=== PATIENT | female | born 1940 | race Caucasian/White ===

== ENCOUNTER → 2016-08-20 | Outpatient (CLI) | payer MEDICARE, OTHER ==
[~2016-08-20] MED LIST: ASP325T PO; ASPI-999 PO; CEPH500C PO; CPR500T PO; CRESTOR40 MG PO; CYAN10006 PO; DOCU100C37 PO; FLUO20CA42 PO; FLUO40CA PO; HYDR-34 PO; HYDR-3816 PO; HYDROCODONE; IBUP-1773 PO; MAGN400O7 PO; METO-272 PO; METO25TA PO; METR500T PO; MULT-305 PO; OMEP20TA2 PO; POLY17PO23 PO; SENN1TAB76 PO; SIME80TA16 PO; TELM1TAB27 PO; TELM40T PO
--- OUTSIDE RECORDS SUMMARY | 2016-08-20 15:29 | XMS REPORT | Continuity of Care Document ---
Author Author [facility] Organization [facility] Address Unknown Phone Unavailable Care Team Providers Care Assistant Store Leader Name Role Phone GREER CASTRO MD PCP Insurance Providers Payer Name Policy Number Subscriber Name Relationship [employer] [id number] Nicolasa Rowe 18 Self / Same As Patient Comm Crossover Enter Ins Name [id number] Nicolasa Rowe 18 Self / Same As Patient Advance Directives Directive Response Recorded Date/Time Advance Directives No 06/11/16 6:40am Health Care Power of Convict Guard No 06/11/16 6:40am Organ Donor Yes 06/11/16 6:40am Resuscitation Status Full Code 06/11/16 6:40am Problems No problem information available. Medications Current Home Medications Medication Dose Units Route Directions Days/Qty Instructions Start Date Omeprazole 20 Mg 20 Mg Oral Daily as needed for Heartburn 04/03/12 Fluoxetine Hcl 20 Mg 20 Mg Oral Daily 07/21/12 Aspirin 81 Mg 81 Mg Oral Daily 01/30/16 Multivit With Calcium,Iron,Min 1 Each 1 Each Oral Daily 01/30/16 Telmisartan 40 Mg 40 Mg Oral Daily 06/08/16 Cyanocobalamin (Vitamin B-12) 1,000 Mcg 1,000 Mcg Oral Daily Past Home Medications Medication Directions Ordered Status Telmisartan 40 Mg Tab, 80 Mg Oral Bedtime 04/03/12 Discontinued Rosuvastatin Calcium 40 Mg Tablet, 40 Mg Oral Daily 04/03/12 Discontinued Fluoxetine Hcl (Prozac) 40 Mg Capsule, 40 Mg Oral Daily 04/03/12 Discontinued Aspirin 325 Mg Tab, 325 Mg Oral Daily 04/03/12 Discontinued Metoprolol Succinate 25 Mg Tab.sr.24h, 25 Mg Oral As Directed 04/07/12 Discontinued Ciprofloxacin 500 Mg Tablet, 500 Mg Oral Twice A Day 04/07/12 Discontinued Metronidazole (Flagyl) 500 Mg Tablet, 500 Mg Oral Three Times A Day 04/07/12 Discontinued Cephalexin Monohydrate (Keflex) 500 Mg Capsule, 1 Each Oral Three Times A Day 07/21/12 Discontinued Acetaminophen/Hydrocodone Bitart 1 Ea Tablet, 1 - 2 Ea Oral Q4hr Prn Discontinued Polyethylene Glycol 17 Gm Pack, 17 Gm Oral Bedtime 07/26/12 Discontinued Metoprolol Succinate (Toprol Xl) 50 Mg Tab.sr.24h, 50 Mg Oral Twice A Day 26/07 Discontinued Senna 1 Ea Tablet, 2 Ea Oral Twice A Day 07/26/12 Discontinued Telmisartan/Hydrochlorothiazid 1 Each Tablet, 0.5 Each Oral Daily 01/30/16 Discontinued Ibuprofen 600 Mg Tablet, 600 Mg Oral Every 6 Hours as needed for Pain Discontinued Hydrocodone/Acetaminophen 1 Each Tablet, 1-2 Ea Oral Every 6 Hours as needed for Pain 02/05/16 Discontinued Simethicone 80 Mg Tab.chew, 40 Mg Oral Three Times A Day as needed for Indigestion 02/05/16 Discontinued Docusate Sodium 100 Mg Capsule, 100 Mg Oral Twice A Day as needed for Constipation 02/05/16 Discontinued Magnesium Hydroxide 400 Mg/5 Ml Oral.susp, 400 Mg Oral Daily 02/05/16 Discontinued Social History Social History Problem Response Recorded Date/Time Alcohol Use Denies Use 02/05/2016 6:25am Recreational Drug Use No 02/05/2016 6:25am Recent Foreign Travel No 06/11/2016 6:40am Recent Infectious Disease Exposure No 06/11/2016 6:40am Sexually Transmitted Disease No 06/11/2016 6:40am HIV/AIDS No 06/11/2016 6:40am Smoking Status Never a Smoker 06/11/2016 6:40am Recent Hopitalizations No 06/11/2016 6:40am Sexually Transmitted Disease No 06/11/2016 6:40am Query Response Start Date Stop Date Smoking Status Never a Smoker Hospital Discharge Instructions Patient Instructions Physician Instructions New, Converted or Re-Newed RX: Other Plan of Care/Instructions/FU: To use tyleneol or ibuprofen for pain. F/U with my nurse in 10 days for suture removal Activity as Tolerated: Yes Discharge Diet: No Restrictions Care Plan Patient Instructions:: To use tyleneol or ibuprofen for pain. F/U with my nurse in 10 days forsuture removal Plan of Care Discharge Date 06/11/16 10:12am Instructions/Education Provided ANESTHESIA INSTRUCTIONS POSTOP Surgical Wound (DC) Prescriptions See Medication Section Functional Status No functional status results. Allergies, Adverse Reactions, Alerts Allergen Type Severity Reaction Status Last Updated Sulfa (Sulfonamide Antibiotics) ([id number]) Allergy Unknown Active 03/16 Immunizations No immunization records. Vital Signs Acute Vital Signs Vital Response Date/Time Temperature (Fahrenheit) 98.3 degrees F (97.6 - 99.5) 06/11/2016 9:45am Temperature (Calculated Celsius) 36.41066 degrees C (36.4 - 37.5) 06/11/2016 9:45am Temperature Source Temporal 06/11/2016 9:45am Pulse Rate (adult) 70 bpm (60 - 90) 06/11/2016 9:45am Respiratory Rate 16 bpm (12 - 24) 06/11/2016 9:45am O2 Sat by Pulse Oximetry 95 % (88 - 100) 06/11/2016 9:45am Blood Pressure 122/75 mm Hg 06/11/2016 9:45am Blood Pressure Mean 121 mm Hg 06/11/2016 6:40am Pain Numeric Pain Scale 0-No Pain 06/11/2016 6:40am Pain Intensity 0 06/11/2016 9:45am Height (Feet) 5 feet 06/11/2016 6:40am Height (Inches) 0.00 inches 06/11/2016 6:40am Height (Calculated Centimeters) 152.554407 cm 06/11/2016 6:40am Weight (Pounds) 124 pounds 06/11/2016 6:40am Weight (Ounces) 3.0 oz 06/11/2016 6:40am Weight (Calculated Grams) 47270.50 gm 06/11/2016 6:40am Weight (Calculated Kilograms) 56.663526 kilograms 06/11/2016 6:40am Calculated BMI 24.3 06/11/2016 6:40am Results Pending Microbiology Results Procedure Source Collection Date/Time Procedures Procedure Status Date Provider(s) Excision of lesion Completed 06/11/16 MICHELLE REESE MD Encounters Encounter Location Arrival/Admit Date Discharge/Depart Date Attending Provider Departed [facility] 06/11/16 6:03am 10:12am MICHELLE REESE MD Departed Clinic [facility] 06/08/16 1:01pm 06/08/16 2: 01pm MICHELLE REESE MD
--- NOTE | 2016-08-23 20:01 | Diagnostic Imaging Report ---
Digital mammogram bilateral screening INDICATION: Screening. This study was compared to the prior exams of 06/09/2015, 05/29/2014, and 05/09/13. At this time, there are no current complaints, aside from intermittent pain in the left breast. FINDINGS: The fibroglandular tissue in both breasts is heterogeneously dense. This does limit the sensitivity of this exam. As noted on the prior exam, there are number of calcifications scattered throughout the upper-outer aspect of the right breast. The calcifications do not seem to have changed significantly except for one small group in the upper-outer aspect of the breast, roughly 6 cm from the nipple. These calcifications are somewhat more conspicuous and numerous than on the prior study. I would recommend that a compression/magnification view of this area be obtained in the CC and ML projections so that these calcifications can be better characterized. The overall appearance of the breasts has not changed significantly otherwise. There is no primary or secondary sign of malignancy noted. IMPRESSION: Additional mammographic views of the right breast would be recommended for further study. ACR BI-RADS Category 0: Incomplete. (Needs additional imaging evaluation). Result letter will be mailed to the patient. Note: At least 10% of breast cancer is not imaged by mammography. Dictated by: Dictated on workstation # [id number]
== END ==
LOC: RAD 15:25
PROVIDERS: ATTEND Nurse Practitioner Family
DX: Z12.31 Encounter for screening mammogram for malignant neoplasm of breast (principal)

== ENCOUNTER → 2016-09-07 | Outpatient (CLI) | payer MEDICARE, OTHER ==
--- OUTSIDE RECORDS SUMMARY | 2016-09-07 08:27 | XMS REPORT | Continuity of Care Document ---
Author Author [facility] Organization [facility] Address Unknown Phone Unavailable Care Team Providers Care Turner Splitter Machine Operator Name Role Phone GREER CASTRO MD PCP Insurance Providers Payer Name Policy Number Subscriber Name Relationship [employer] [id number] Nicolasa Rowe 18 Self / Same As Patient Comm Crossover Enter Ins Name [id number] Nicolasa Rowe 18 Self / Same As Patient Advance Directives Directive Response Recorded Date/Time Advance Directives No 06/11/16 6:40am Health Care Power of Rn Utilization Management Um No 06/11/16 6:40am Organ Donor Yes 06/11/16 [...] Reaction Status Last Updated Sulfa (Sulfonamide Antibiotics) ([id number]) Allergy Unknown Active 03/16 Immunizations No immunization records. Vital Signs Acute Vital Signs Vital Response Date/Time Temperature (Fahrenheit) 98.3 degrees F (97.6 - 99.5) 06/11/2016 9:45am Temperature (Calculated Celsius) 36.16448 degrees C (36.4 - 37.5) 06/11/2016 9:45am [...] 0.00 inches 06/11/2016 6:40am Height (Calculated Centimeters) 152.104611 cm 06/11/2016 6:40am Weight (Pounds) 124 pounds 06/11/2016 6:40am Weight (Ounces) 3.0 oz 06/11/2016 6:40am Weight (Calculated Grams) 17343.50 gm 06/11/2016 6:40am Weight (Calculated Kilograms) 56.497805 kilograms 06/11/2016 6:40am Calculated BMI 24.3 06/11/2016 6:40am Results Pending Microbiology Results Procedure Source Collection Date/Time Procedures Procedure Status Date Provider(s) Excision of lesion Completed 06/11/16 MICHELLE REESE MD Encounters Encounter Location Arrival/Admit Date Discharge/Depart Date Attending Provider Departed [facility] Day [facility] 06/11/16 6:03am 10:12am MICHELLE REESE MD Departed Clinic [facility] 06/08/16 1:01pm 06/08/16 2: 01pm MICHELLE REESE MD
--- NOTE | 2016-09-07 15:35 | Diagnostic Imaging Report ---
EXAMINATION: Right breast diagnostic mammogram with a Computer Aided Detection (CAD) system. INDICATION: Increased calcifications in the upper outer aspect of the right breast. FINDINGS: There are loosely clustered calcifications with minimal heterogeneity seen in the upper outer aspect of the right breast. No associated mass is identified. IMPRESSION: Slightly increased calcifications with minimal heterogeneity and loose clustering in the upper outer aspect of the right breast are favored to be benign. A 6 month followup mammogram is recommended to ensure stability. ACR BI-RADS Category 3: Probably benign findings. Result letter will be mailed to the patient. Note: At least 10% of breast cancer is not imaged by mammography. Dictated by: Dictated on workstation # [id number]
== END ==
LOC: RAD 08:22
PROVIDERS: ATTEND Nurse Practitioner Family
DX: R92.8 Other abnormal and inconclusive findings on diagnostic imaging of breast (principal)

== ENCOUNTER → 2016-09-29 | Outpatient (CLI) | payer MEDICARE, OTHER ==
--- OUTSIDE RECORDS SUMMARY | 2016-09-29 15:12 | XMS REPORT | Continuity of Care Document ---
Author Author [facility] Organization [facility] Address Unknown Phone Unavailable Care Team Providers Care Black Ash Burner Operator Name Role Phone GREER CASTRO MD PCP Insurance Providers Payer Name Policy Number Subscriber Name Relationship [employer] [id number] Nicolasa Rowe 18 Self / Same As Patient Comm Crossover Enter Ins Name [id number] Nicolasa Rowe 17 Self / Same As Patient Advance Directives Directive Response Recorded Date/Time Advance Directives No 06/11/16 6:40am Health Care Power of Button Breaker Operator No 06/11/16 6:40am Organ Donor Yes 06/11/16 [...] Reaction Status Last Updated Sulfa (Sulfonamide Antibiotics) ([id number]) Allergy Unknown Active 03/16 Immunizations No immunization records. Vital Signs Acute Vital Signs Vital Response Date/Time Temperature (Fahrenheit) 98.3 degrees F (97.6 - 99.5) 06/11/2016 9:45am Temperature (Calculated Celsius) 36.70645 degrees C (36.4 - 37.5) 06/11/2016 9:45am [...] 0.00 inches 06/11/2016 6:40am Height (Calculated Centimeters) 152.339171 cm 06/11/2016 6:40am Weight (Pounds) 124 pounds 06/11/2016 6:40am Weight (Ounces) 3.0 oz 06/11/2016 6:40am Weight (Calculated Grams) 39835.50 gm 06/11/2016 6:40am Weight (Calculated Kilograms) 56.223124 kilograms 06/11/2016 6:40am Calculated BMI 24.3 06/11/2016 6:40am Results Pending Microbiology Results Procedure Source Collection Date/Time Procedures Procedure Status Date Provider(s) Excision of lesion Completed 06/11/16 MICHELLE REESE MD Encounters Encounter Location Arrival/Admit Date Discharge/Depart Date Attending Provider Departed [facility] Day [facility] 06/11/16 6:03am 10:12am MICHELLE REESE MD Departed Clinic [facility] 06/08/16 1:01pm 06/08/16 2: 01pm MICHELLE REESE MD
--- NOTE | 2016-09-29 19:34 | Diagnostic Imaging Report ---
Three views of the thoracic spine. INDICATION: Back pain. FINDINGS: There is satisfactory alignment of the thoracic spine. The vertebral body heights are preserved. There is minimal right convexity scoliosis to the right in the mid thoracic spine. There are minimal anterior osteophytes in the midthoracic spine. The swimmer's view demonstrates satisfactory alignment of the thoracocervical junction levels. IMPRESSION: Minimal scoliotic curvatures in the mid thoracic spine. Minimal degenerative changes. Dictated by: Dictated on workstation # [id number]
--- NOTE | 2016-09-29 19:42 | Diagnostic Imaging Report ---
Three views of the lumbar spine. INDICATION: Back pain. FINDINGS: There is grade 2 spondylolisthesis of L4 over L5. There is suggestion of possible pars defects at L4 level. There is minimal anterolisthesis of L3 over L4. The vertebral body heights are preserved. There is mild disc height loss at L4/L5 level. Multilevel minimal anterior osteophytes noted. Degenerative sclerotic changes in the lower lumbar spine facet joints and mild degenerative changes at the SI joints seen. IMPRESSION: Grade 2 spondylolisthesis of L4 over L5 level with question of underlying L4 pars defects. Dictated by: Dictated on workstation # [id number]
== END ==
LOC: RAD 15:08
PROVIDERS: ATTEND Pain Medicine Pain Medicine
DX: M54.5 Low back pain (principal); M54.6 Pain in thoracic spine
CPT/HCPCS: 72072; 72100

== ENCOUNTER 2016-10-01 09:07 | Inpatient (IN) | payer MEDICARE, OTHER ==
[~2016-10-01] VITALS: Ht 154.9 cm; Wt 57.2 kg
[~2016-10-01 09:07] MED LIST changes: -HYDROCODONE
--- OUTSIDE RECORDS SUMMARY | 2016-10-01 09:15 | XMS REPORT | Continuity of Care Document ---
Author Author [facility] Organization [facility] Address Unknown Phone Unavailable Care Team Providers Care Rn First Assistant Name Role Phone GREER CASTRO MD PCP Insurance Providers Payer Name Policy Number Subscriber Name Relationship W[employer] [id number] Nicolasa Rowe 18 Self / Same As Patient Comm Crossover Enter Ins Name [id number] Nicolasa Rowe 17 Self / Same As Patient Advance Directives Directive Response Recorded Date/Time Advance Directives No 06/11/16 6:40am Health Care Power of Street Light Lamp Cleaner No 06/11/16 6:40am Organ Donor Yes 06/11/16 [...] Reaction Status Last Updated Sulfa (Sulfonamide Antibiotics) ([id number]) Allergy Unknown Active 03/16 Immunizations No immunization records. Vital Signs Acute Vital Signs Vital Response Date/Time Temperature (Fahrenheit) 98.3 degrees F (97.6 - 99.5) 06/11/2016 9:45am Temperature (Calculated Celsius) 36.39454 degrees C (36.4 - 37.5) 06/11/2016 9:45am [...] 0.00 inches 06/11/2016 6:40am Height (Calculated Centimeters) 152.252639 cm 06/11/2016 6:40am Weight (Pounds) 124 pounds 06/11/2016 6:40am Weight (Ounces) 3.0 oz 06/11/2016 6:40am Weight (Calculated Grams) 21561.50 gm 06/11/2016 6:40am Weight (Calculated Kilograms) 56.732942 kilograms 06/11/2016 6:40am Calculated BMI 24.3 06/11/2016 6:40am Results Pending Microbiology Results Procedure Source Collection Date/Time Procedures Procedure Status Date Provider(s) Excision of lesion Completed 06/11/16 MICHELLE REESE MD Encounters Encounter Location Arrival/Admit Date Discharge/Depart Date Attending Provider Departed [facility] Day [facility] 06/11/16 6:03am 10:12am MICHELLE REESE MD Departed Clinic [facility] 06/08/16 1:01pm 06/08/16 2: 01pm MICHELLE REESE MD
[2016-10-01] MEDS ORDERED: HYDROCODONE (09:38)
[2016-10-01 10:12] LABS: BASOPHILS % (AUTO) 0 % (0-10); EOSINOPHILS # (AUTO) 0.1 10^3/uL (0.0-0.3); EOSINOPHILS % (AUTO) 1 % (0-10); LYMPHOCYTES # (AUTO) 1.7 X 10^3 (1.0-4.0); LYMPHOCYTES % (AUTO) 23 % (12-44); MEAN CORPUSCULAR HEMOGLOBIN 34 PG (25-34); MEAN CORPUSCULAR HGB CONC 34 G/DL (32-36); MEAN CORPUSCULAR VOLUME 99 FL (80-99); MEAN PLATELET VOLUME 9.6 FL (7.4-10.4); MONOCYTES # (AUTO) 0.8 X 10^3 (0.0-1.0); MONOCYTES % (AUTO) 11 % (0-12); NEUTROPHILS # (AUTO) 4.7 X 10^3 (1.8-7.8); NEUTROPHILS % (AUTO) 65 % (42-75); PLATELET COUNT 229 10^3/uL (130-400); RED BLOOD COUNT 4.08 10^6/uL (4.35-5.85); RED CELL DISTRIBUTION WIDTH 12.4 % (10.0-14.5); WHITE BLOOD COUNT 7.2 10^3/uL (4.3-11.0)
[2016-10-01 10:17] LABS: PROTHROMBIN TIME PATIENT 13.3 SEC (12.2-14.7)
[2016-10-01 10:24] LABS: ANION GAP 12 MMOL/L (5-14); BILIRUBIN,TOTAL 0.7 MG/DL (0.1-1.0); BLOOD UREA NITROGEN 18 MG/DL (7-18); BUN/CREATININE RATIO 21; CARBON DIOXIDE 22 MMOL/L (21-32); CHLORIDE 103 MMOL/L (98-107); CREATININE SERUM 0.85 MG/DL (0.60-1.30); GFR ESTIMATED > 60; GLUCOSE 120 MG/DL (70-105); POTASSIUM 3.6 MMOL/L (3.6-5.0); SODIUM 137 MMOL/L (135-145)
[2016-10-01 10:25] LABS: ALANINE AMINOTRANSFERASE 12 U/L (0-55); ALBUMIN 3.7 G/DL (3.2-4.5); ASPARTATE AMINO TRANSFERASE 17 U/L (5-34); TOTAL PROTEIN 6.3 G/DL (6.4-8.2)
[2016-10-01 10:30] LABS: TROPONIN I < 0.30 NG/ML (<0.30)
--- NOTE | 2016-10-01 10:30 | Diagnostic Imaging Report ---
INDICATION: Syncope. Noncontrast brain CT is performed. There are no extra-axial fluid collections. No intracranial hemorrhage. No intracranial mass or mass effect. No midline shift. The ventricles are normal in size and position. There are no focal parenchymal abnormalities in the brain. IMPRESSION: Negative noncontrast brain CT. Dictated by: Dictated on workstation # [id number]
[2016-10-01] MEDS ORDERED: NS IV 1000 ML 1,000 ML ONE (10:33)
--- NOTE | 2016-10-01 10:40 | Diagnostic Imaging Report ---
INDICATION: Syncope EXAM: Frontal chest obtained at 10:24 hrs a.m. COMPARISON: 12/13/2013. FINDINGS: The heart is mildly prominent. There are chronic-appearing increased interstitial markings. There is no acute consolidation, pneumothorax or pleural fluid. IMPRESSION: Mild cardiomegaly no acute process in the chest. Dictated by: Dictated on workstation # [id number]
[2016-10-01] MEDS: NS IV 1000 ML 1,000 ML IV SCH ×5 (10:41→18:14)
[2016-10-01] MEDS ORDERED: IOHEXOL 350 MG/ML 150 ML (OMNIPAQUE 350) VIAL IV ONE (11:15)
[2016-10-01] MEDS ORDERED: NS 100 ML (IVPB) BAG IV ONE (11:15)
[2016-10-01] MEDS ORDERED: CATHETER FLUSH 10 ML SYR IV PRN ×2 (11:15→19:00)
--- NOTE | 2016-10-01 12:00 | Diagnostic Imaging Report ---
PROCEDURE: CT angiography of the chest with contrast. TECHNIQUE: Multiple contiguous axial images were obtained through the chest after uneventful bolus administration of intravenous contrast. Reconstructed CTA MIP acquisitions were also performed. INDICATION: Positive D-dimer. History of breast cancer. 125 mL of Omnipaque 350 administered intravenously. FINDINGS: The pulmonary arteries are well opacified with no filling defects to suggest pulmonary embolism seen. The thoracic aorta is normal in caliber. No para-aortic significantly enlarged lymph nodes are seen. The heart size is normal. No pericardial or pleural effusion. The thyroid gland is enlarged and extends into the upper mediastinum. There is otherwise no mediastinal mass or significant lymphadenopathy. No hilar lymphadenopathy. The axilla demonstrates no lymphadenopathy or mass. Focal chronic atelectasis or scarring similar to 2012 is seen in the medial aspect of the right middle lobe without significant change. There is otherwise no significant consolidation, mass, or suspicious pulmonary nodule identified. Sections in the upper abdomen demonstrate mild thickening in the distal esophagus, may relate to esophagitis. The osseous structures demonstrate mild degenerative changes in the mid thoracic spine. IMPRESSION: 1. No PE or aortic dissection. 2. Chronic focal atelectasis and scarring in the medial aspect of the right middle lobe with no significant lung abnormality otherwise. 3. Mild thickening in the distal esophagus may relate to esophagitis. Correlate clinically and with endoscopy if indicated. Dictated by: Dictated on workstation # [id number]
[2016-10-01 13:36] LABS: BILIRUBIN,URINE NEGATIVE (NEGATIVE); KETONES,URINE NEGATIVE (NEGATIVE); LEUKOCYTE ESTERASE ,URINE 3+ (NEGATIVE); NITRITE,URINE NEGATIVE (NEGATIVE); PH,URINE 6 (5-9); PROTEIN,URINE 2+ (NEGATIVE); UROBILINOGEN,URINE NORMAL (NORMAL)
--- NOTE | 2016-10-01 14:14 | ED General ---
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 PT STATES PAIN TO THE POSTERIOR HEAD SITH NO NECK PAIN ON PALPATION. 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 The patient states that she awoke with her students and coworkers around her. She denied any ongoing pain following a syncopal episode. She denies any seizure activity. The patient denies headache, stiff neck, photophobia, productive cough, fever or chill, shortness of breath, chest pain, palpitations, vomiting, diarrhea, or dysuria. The patient's primary care physician Dr. Saavedra noted that the patient has had a history of frequent urinary tract infections in the past. The patient has had a history long-standing of hypertension for which she takes medications in a compliant fashion. The patient has not had a problem with low blood pressure in the past. Allergies and Home Medications Allergies Coded Allergies: Sulfa (Sulfonamide Antibiotics) (Verified Allergy, Unknown, 06/08/16) Home Medications (Reported) Aspirin 81 Mg Tab.chew 81 MG PO DAILY (Reported) Cyanocobalamin (Vitamin B-12) 1,000 Mcg Tablet 1,000 MCG PO DAILY (Reported) Fluoxetine Hcl 20 Mg Capsule 20 MG PO DAILY (Reported) Multivit with Calcium,Iron,Min 1 Each Tablet 1 EACH PO DAILY (Reported) Telmisartan 40 Mg Tab 40 MG PO DAILY (Reported) Constitutional: No chills, No fever EENTM: No vision loss Respiratory: No cough, No short of breath Cardiovascular: No chest pain, No palpitations Gastrointestinal: No abdominal pain, No nausea Genitourinary: no symptoms reported : No Musculoskeletal: no symptoms reported Skin: No rash Psychiatric/Neurological: No Symptoms Reported Past Jpfrllj-Hjiesi-Kndjlr Hx Patient Social History Alcohol Use: Denies Use Recreational Drug Use: No 2nd Hand Smoke Exposure: No Recent Foreign Travel: No Contact w/Someone Who Travel: No Recent Infectious Disease Expo: No Recent Hopitalizations: No Immunizations Up To Date Date of Pneumonia Vaccine: Jun 07, 2016 Date of Influenza Vaccine: Jun 07, 2016 Seasonal Allergies Seasonal Allergies: Yes Surgeries HX Surgeries: Yes (breast lumpectomy x2, right CTR) Surgeries: Hysterectomy Respiratory Hx Respiratory Disorders: No Cardiovascular Hx Cardiac Disorders: Yes Cardiac Disorders: High Cholesterol, Hypertension Neurological Hx Neurological Disorders: No Reproductive System Hx Reproductive Disorders: No Sexually Transmitted Disease: No HIV/AIDS: No Genitourinary Hx Genitourinary Disorders: Yes Genitourinary Disorders: UTI-Chronic Gastrointestinal Hx Gastrointestinal Disorders: Yes (DIVERTICULITIS) Gastrointestinal Disorders: Gastroesophageal Reflux Musculoskeletal Hx Musculoskeletal Disorders: Yes Musculoskeletal Disorders: Arthritis, Chronic Back Pain Endocrine Hx Endocrine Disorders: No HEENT HX ENT Disorders: Yes (GLASSES) HEENT Disorders: Cataract Loss of Vision: Bilateral Hearing Impairment: Denies Cancer Hx Cancer: Yes Cancer: Skin, Breast Psychosocial Hx Psychiatric Problems: Yes Behavioral Health Disorders: Depression Integumentary HX Skin/Integumentary Disorder: No Blood Transfusions Hx Blood Disorders: No Adverse Reaction to a Blood Tr: No (N/A) Reviewed Nursing Assessment Reviewed/Agree w Nursing PMH: Yes Family Medical History Family Medial History: Cardiovascular disease G8 BROTHER Colon cancer G8 SISTER FH: breast cancer 19 MOTHER Hypertension G8 BROTHER Physical Exam Vital Signs Vital Sign - Last 12Hours 10/01/16 09:28 Temp 97.3 Pulse 72 Resp 18 B/P 109/72 Pulse Ox 98 O2 Delivery Room Air Capillary Refill : Less Than 3 Seconds General Appearance: No Apparent Distress WD/WN Eyes: Bilateral Eye Normal Inspection HEENT: Normal ENT Inspection Neck: Normal Inspection Respiratory: Lungs Clear Cardiovascular: Regular Rate, Rhythm Gastrointestinal: Normal Bowel Sounds Non Tender Soft Back: Normal Inspection No Vertebral Tenderness Extremity: Normal Inspection Normal Range of Motion Neurologic/Psychiatric: No Motor/Sensory Deficits Skin: Normal Color Warm/Dry Progress/Results/Core Measures Results/Orders Lab Results Laboratory Tests Test 10/01/16 09:52 10/01/16 10:00 10/01/16 13:25 Range/Units Glucometer 137 H 70-110 MG/DL Activated Partial Thromboplast Time 22 L 24-35 SEC Alanine Aminotransferase (ALT/SGPT) 12 0-55 U/L Albumin 3.7 3.2-4.5 G/DL Alkaline Phosphatase 54 40-136 U/L Anion Gap 12 5-14 MMOL/L Aspartate Amino Transf (AST/SGOT) 17 5-34 U/L BUN/Creatinine Ratio 21 Basophils # (Auto) 0.0 0.0-0.1 10^3/uL Basophils (%) (Auto) 0 0-10 % Blood Urea Nitrogen 18 7-18 MG/DL Calcium Level 9.0 8.5-10.1 MG/DL Carbon Dioxide Level 22 21-32 MMOL/L Chloride Level 103 98-107 MMOL/L Creatinine 0.85 0.60-1.30 MG/DL D-Dimer 2.88 H 0.00-0.49 UG/ML Eosinophils # (Auto) 0.1 0.0-0.3 10^3/uL Eosinophils (%) (Auto) 1 0-10 % Estimat Glomerular Filtration Rate > 60 Glucose Level 120 H 70-105 MG/DL Hematocrit 40 35-52 % Hemoglobin 13.7 11.5-16.0 G/DL INR Comment 1.0 0.8-1.4 Lymphocytes # (Auto) 1.7 1.0-4.0 X 10^3 Lymphocytes (%) (Auto) 23 12-44 % Mean Corpuscular Hemoglobin 34 25-34 PG Mean Corpuscular Hemoglobin Concent 34 32-36 G/DL Mean Corpuscular Volume 99 80-99 FL Mean Platelet Volume 9.6 7.4-10.4 FL Monocytes # (Auto) 0.8 0.0-1.0 X 10^3 Monocytes (%) (Auto) 11 0-12 % Neutrophils # (Auto) 4.7 1.8-7.8 X 10^3 Neutrophils (%) (Auto) 65 42-75 % Platelet Count 229 130-400 10^3/uL Potassium Level 3.6 3.6-5.0 MMOL/L Prothrombin Time 13.3 12.2-14.7 SEC Red Blood Count 4.08 L 4.35-5.85 10^6/uL Red Cell Distribution Width 12.4 10.0-14.5 % Sodium Level 137 135-145 MMOL/L Total Bilirubin 0.7 0.1-1.0 MG/DL Total Protein 6.3 L 6.4-8.2 G/DL Troponin I < 0.30 <0.30 NG/ML White Blood Count 7.2 4.3-11.0 10^3/uL Urine Bacteria TRACE /HPF Urine Bilirubin NEGATIVE NEGATIVE Urine Casts NONE /LPF Urine Clarity CLEAR Urine Color YELLOW Urine Crystals NONE /LPF Urine Culture Indicated YES Urine Glucose (UA) NEGATIVE NEGATIVE Urine Ketones NEGATIVE NEGATIVE Urine Leukocyte Esterase 3+ H NEGATIVE Urine Mucus NEGATIVE /LPF Urine Nitrite NEGATIVE NEGATIVE Urine Protein 2+ H NEGATIVE Urine RBC NONE /HPF Urine RBC (Auto) 2+ H NEGATIVE Urine Specific [place] 1.010 L 1.016-1.022 Urine Squamous Epithelial Cells 2-5 /HPF Urine Urobilinogen NORMAL NORMAL MG/DL Urine WBC 2-5 /HPF Urine pH 6 5-9 My Orders Orders-MITCHELL MENDOZA MD Cbc With Automated Diff (10/01/16 10:05) Protime With Inr (10/01/16 10:05) Partial Thromboplastin Time (10/01/16 10:05) Comprehensive Metabolic Panel (10/01/16 10:05) Fibrin Degradation Products (10/01/16 10:05) Troponin I (10/01/16 10:05) Chest 1 View, Ap/Pa Only (10/01/16 10:05) Ekg Tracing (10/01/16 10:05) Accucheck Stat ONCE (10/01/16 10:05) Saline Lock/Iv-Start (10/01/16 10:05) Saline Lock/Iv-Start (10/01/16 10:05) Vital Signs-Stroke Q1H (10/01/16 10:05) Ct Head Wo-R/O Stroke (10/01/16 10:05) O2 (10/01/16 10:05) Monitor-Rhythm Ecg Trace Only (10/01/16 10:05) Dysphagia Screening Tool (10/01/16 10:05) Post Thrombolytic Adminstratio (10/01/16 10:05) Ns Iv 1000 Ml (Sodium Chloride 0.9%) (10/01/16 10:45) Ns Iv 1000 Ml (Sodium Chloride 0.9%) (10/01/16 10:33) Ct Angio Chest W (10/01/16 10:57) Iohexol Injection (Omnipaque 350 Mg/Ml 1 (10/01/16 11:15) Sodium Chloride Flush (Catheter Flush Sy (10/01/16 11:15) Ns (Ivpb) (Sodium Chloride 0.9% Ivpb Bag (10/01/16 11:15) Ua Culture If Indicated (10/01/16 12:33) Urine Culture (10/01/16 13:25) Ceftriaxone Injection (Rocephin Injectio (10/01/16 14:15) Medications Given in ED Current Medications Medications Dose Ordered Sig/Murtaza Route Start Time Stop Time Status Last Admin Dose Admin Iohexol 125 ml ONCE ONCE IV 10/01/16 11:15 10/01/16 11:16 DC 10/01/16 11:21 125 ML Sodium Chloride 100 ml ONCE ONCE IV 10/01/16 11:15 10/01/16 11:16 DC 10/01/16 11:22 80 ML Vital Signs/I&O Vital Sign - Last 12Hours 10/01/16 09:28 Temp 97.3 Pulse 72 Resp 18 B/P 109/72 Pulse Ox 98 O2 Delivery Room Air Blood Pressure Mean: 84 Point of Care Testing Finger Stick Blood Glucose: 137 Blood Glucose Action Taken: DR ANDRADE Progress Note : Time: 14:19 Progress Note Patient's evaluation emergency department demonstrated a persistent hypotension with a systolic following intermittently into the 80s. The patient responded to a liter of normal saline. Patient's urinalysis was consistent with a significant UTI. Telephone consultation was undertaken with Dr. Saavedra. The patient was admitted with a severe UTI, possible early sepsis, syncope, and orthostatic hypotension. Departure Communication Time/Spoke to Admitting Phy: 14:[address] Saavedra. Impression Impression: Primary Impression: UTI (urinary tract infection) Qualified Code: N30.00 - Acute cystitis without hematuria Additional Impressions: Sepsis Qualified Code: A41.9 - Sepsis, unspecified organism Syncope Qualified Code: R55 - Syncope and collapse Hypotension Qualified Code: I95.1 - Orthostatic hypotension Disposition: ADMITTED INPATIENT Condition: Improved Decision to Admit Reason: Admit from ER (General) Decision to Admit/Date: Oct 01, 2016 Time/Decision to Admit Time: 14:21 Departure-Patient Inst. Referrals: GREER SAAVEDRA MD (PCP/Family) Primary Care Physician MITCHELL MENDOZA MD Oct 01, 2016 14:14
[2016-10-01] MEDS ORDERED: cefTRIAXone INJECTION 1,000 MG in NS (IVPB) 50 ML IV ONE (14:15)
[2016-10-01 15:05] VITALS: BP 108/89
[2016-10-01 16:33] LABS: BASOPHILS % (AUTO) 0 % (0-10); EOSINOPHILS % (AUTO) 0 % (0-10); LYMPHOCYTES % (AUTO) 24 % (12-44); MEAN CORPUSCULAR HEMOGLOBIN 33 PG (25-34); MEAN CORPUSCULAR HGB CONC 34 G/DL (32-36); MEAN CORPUSCULAR VOLUME 99 FL (80-99); MEAN PLATELET VOLUME 9.7 FL (7.4-10.4); MONOCYTES # (AUTO) 0.8 X 10^3 (0.0-1.0); MONOCYTES % (AUTO) 9 % (0-12); NEUTROPHILS # (AUTO) 5.5 X 10^3 (1.8-7.8); NEUTROPHILS % (AUTO) 67 % (42-75); PLATELET COUNT 209 10^3/uL (130-400); RED BLOOD COUNT 4.04 10^6/uL (4.35-5.85); RED CELL DISTRIBUTION WIDTH 12.3 % (10.0-14.5); WHITE BLOOD COUNT 8.3 10^3/uL (4.3-11.0)
[2016-10-01 16:53] LABS: ALANINE AMINOTRANSFERASE 13 U/L (0-55); ALBUMIN 3.3 G/DL (3.2-4.5); ANION GAP 10 MMOL/L (5-14); ASPARTATE AMINO TRANSFERASE 26 U/L (5-34); BILIRUBIN,TOTAL 0.6 MG/DL (0.1-1.0); BLOOD UREA NITROGEN 15 MG/DL (7-18); BUN/CREATININE RATIO 22; CALCIUM 8.5 MG/DL (8.5-10.1); CARBON DIOXIDE 22 MMOL/L (21-32); CHLORIDE 105 MMOL/L (98-107); CREATININE SERUM 0.69 MG/DL (0.60-1.30); GFR ESTIMATED > 60; GLUCOSE 91 MG/DL (70-105); SODIUM 137 MMOL/L (135-145); TOTAL PROTEIN 6.3 G/DL (6.4-8.2)
[2016-10-01 16:54] LABS: POTASSIUM 4.2 MMOL/L (3.6-5.0)
[2016-10-01 20:00] VITALS: BP 108/73
[2016-10-01 20:01] VITALS: BP 118/75
[2016-10-01 20:02] VITALS: BP 116/70
[2016-10-01] MEDS: CATHETER FLUSH 10 ML SYR IV SCH (21:18)
[2016-10-02] VITALS (8 sets, daily range): BP systolic 87–113; BP diastolic 53–61
[2016-10-02] MEDS: CATHETER FLUSH 10 ML SYR IV SCH (04:57)
[2016-10-02] MEDS ORDERED: cefTRIAXone 1 GM/NS 50 ML IVPB IV SCH ×2 (09:00)
[2016-10-02] MEDS ORDERED: NS IV 1000 ML 1,000 ML ONE (09:53)
[2016-10-02] MEDS ORDERED: NS (IVPB) 250 ML IV ONE (10:00)
[2016-10-02] MEDS ORDERED: NS IV 1000 ML 1,000 ML IV SCH (10:00)
--- NOTE | 2016-10-02 11:21 | Discharge Inst-Complex ---
PDI Med Rec & Follow Up Appt. Continued Medications: Aspirin (Aspirin) 81 Mg Tab.chew 81 MG PO DAILY TAB Cyanocobalamin (Vitamin B-12) (Vitamin B-12) 1,000 Mcg Tablet 1000 MCG PO DAILY TAB Fluoxetine Hcl (Prozac) 20 Mg Capsule 20 MG PO DAILY Multivit with Calcium,Iron,Min (Women's Daily Multivitamin) 1 Each Tablet 1 EACH PO DAILY TAB ([Hydrocodone]) Discontinued Medications: Telmisartan (Micardis) 40 Mg Tab 40 MG PO DAILY TAB Patient Instructions: GO BY THE OFFICE ON TUESDAY FOR A BLOOD PRESSURE CHECK Activity, Diet and PDI Resume Normal Activity: Yes Discharge Diet: Regular Diet Diet for 24 Hours: No Alcohol Diet After 24 Hours: Clear Liquid if Nauseous Drink 6-8 Glasses of Fluid/Day: Yes Driving Instructions: No Driving for 24 Hours Return to The Hospital For: ANY LIFETHREATENING ILLNESS, INJURY, OR RECURRENT SYNCOPE Symptoms to Reoprt to DrChristian: Fever Over 101 Degrees F, Pain/Pressure in Chest, Lightheadedness, Pain/Pressure in Shoulder, Shortness of Breath For Problems or Questions: Contact Your Physician, Go to Emergency Room GREER CASTRO MD Oct 02, 2016 11:21
--- NOTE | 2016-10-02 11:28 | Short Stay Summary ---
History of Present Illness History of Present Illness Reason for visit/HPI PT IS A 76 Y/O FEMALE WHO IS KNOWN TO ME FROM CLINIC. 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 SHE STATES THAT SHE TOOK HER MEDICATION IN THE MORNING, WAS FEELING FINE UNTIL SHE STARTED TO HAVE SOME DIZZINESS AND THEN STARTED TO BLACK OUT. SHE WAS BROUGHT TO THE HOSPITAL WHERE SHE WAS FOUND TO HAVE ACUTE HYPOTENSION AND POSSIBLE URINARY TRACT INFECTION. Date of Admission Oct 01, 2016 at 14:20 Date of Discharge Attending Physician Greer Saavedra MD Admitting Physician Greer Saavedra MD Consult Allergies and Home Medications Allergies Coded Allergies: Sulfa (Sulfonamide Antibiotics) (Verified Allergy, Unknown, 06/08/16) Home Medications (Reported) Aspirin 81 Mg Tab.chew 81 MG PO DAILY (Reported) Cyanocobalamin (Vitamin B-12) 1,000 Mcg Tablet 1,000 MCG PO DAILY (Reported) Fluoxetine Hcl 20 Mg Capsule 20 MG PO DAILY (Reported) Multivit with Calcium,Iron,Min 1 Each Tablet 1 EACH PO DAILY (Reported) Past Azaqtkr-Hacwgh-Mjvhaq Hx Patient Social History Marrital Status: single Living Status: LIVES IN OWN HOME Employed/Student: retired Alcohol Use: Denies Use Recreational Drug Use: No Smoking Status: Never a Smoker 2nd Hand Smoke Exposure: No Physical Abuse Screen: No Sexual Abuse: No Recent Foreign Travel: No Contact w/other who traveled: No Recent Hopitalizations: No Recent Infectious Disease Expo: No Immunizations Up To Date Date of Pneumonia Vaccine: Jun 07, 2016 Date of Influenza Vaccine: May 03, 2016 Seasonal Allergies Seasonal Allergies: Yes Surgeries HX Surgeries: Yes (breast lumpectomy x2, right CTR) Surgeries: Hysterectomy Respiratory Hx Respiratory Disorders: No Cardiovascular Hx Cardiovascular Disorders: Yes Cardiac Disorders: High Cholesterol, Hypertension Neurological Hx Neurological Disorders: No Reproductive System : No Hx Reproductive Disorders: No Sexually Transmitted Disease: No HIV/AIDS: No Genitourinary Hx Genitourinary Disorders: Yes Genitourinary Disorders: UTI-Chronic Gastrointestinal Hx Gastrointestinal Disorders: Yes (DIVERTICULITIS) Gastrointestinal Disorders: Gastroesophageal Reflux Musculoskeletal Hx Musculoskeletal Disorders: Yes Musculoskeletal Disorders: Arthritis, Chronic Back Pain Endocrine Hx Endocrine Disorders: No HEENT HX ENT Disorders: Yes (GLASSES) HEENT Disorders: Cataract Loss of Vision: Bilateral Hearing Impairment: Denies Cancer Hx Cancer: Yes Cancer: Skin, Breast Psychosocial Hx Psychiatric Problems: Yes Behavioral Health Disorders: Depression Integumentary HX Skin/Integumentary Disorder: No Blood Transfusions Hx Blood Disorders: No Adverse Reaction to a Blood Tr: No (N/A) Reviewed Nursing Assessment Reviewed/Agree w Nursing PMH: Yes Family Medical History Significant Family History: Heart Disease, Cancer, Hypertension Family Hx: Cardiovascular disease G8 BROTHER Colon cancer G8 SISTER FH: breast cancer 19 MOTHER Hypertension G8 BROTHER Constitutional: No fever, No malaise, No weakness EENTM: No mouth pain, No nose pain, No throat pain Respiratory: No cough, No orthopnea, No short of breath Cardiovascular: No chest pain, No palpitations, syncope (RESOLVED AFTER IV FLUIDS) Gastrointestinal: No diarrhea, No loss of appetite, No nausea, No vomiting Genitourinary: No dysuria, frequencyNo pain Musculoskeletal: no symptoms reported Skin: no symptoms reported Psychiatric/Neurological: Denies Anxiety, DepressedDenies Headache, Denies Numbness, Denies Paresthesia, Denies Tingling, Denies Weakness All Other Systems Reviewed Negative Unless Noted: Yes Physical Exam Vital Signs Vital Sign - Last 12Hours 10/01/16 09:28 Temp 97.3 Pulse 72 Resp 18 B/P 109/72 Pulse Ox 98 O2 Delivery Room Air Capillary Refill : Less Than 3 Seconds General Appearance: No Apparent Distress WD/WN Eyes: Bilateral Eye EOMI, Bilateral Eye Normal Inspection, Bilateral Eye PERRL HEENT: PERRL/EOMI Pharynx Normal Neck: Full Range of Motion Supple Respiratory: Chest Non Tender Lungs Clear Normal Breath Sounds No Accessory Muscle Use No Respiratory Distress Cardiovascular: Regular Rate, Rhythm Normal Peripheral Pulses Gastrointestinal: Normal Bowel Sounds No Organomegaly No Pulsatile Mass Non Tender Soft Rectal: Deferred Extremity: Normal Capillary Refill Non Tender No Calf Tenderness No Pedal Edema Neurologic/Psychiatric: Alert Oriented x3 No Motor/Sensory Deficits Normal Mood/Affect heddler tier II-XII Norm as Tested Skin: Normal Color Warm/Dry Lymphatic: No Adenopathy Clinical Quality Measures DVT/VTE Risk/Contraindication: VTE Present on Admission: No Risk Factor Score Per Nursin RFS Level Per Nursing on Admit: 1=Low/No VTE PPX Contraindications-Pharm: Pt at low risk Contraindications-Mechi: Pt at low risk Short Stay Diagnosis Discharge Diagnosis-Short Stay Admission Diagnosis: SYNCOPE HYPOTENSION Final Discharge Diagnosis: SYNCOPE HYPOTENSION Conclusion Labs Laboratory Tests 10/01/16 13:25: Urine Bacteria TRACE, Urine Bilirubin NEGATIVE, Urine Casts NONE, Urine Clarity CLEAR, Urine Color YELLOW, Urine Crystals NONE, Urine Culture Indicated YES, Urine Glucose (UA) NEGATIVE, Urine Ketones NEGATIVE, Urine Leukocyte Esterase 3+ H, Urine Mucus NEGATIVE, Urine Nitrite NEGATIVE, Urine Protein 2+H, Urine RBC NONE, Urine RBC (Auto) 2+H, Urine Specific [place] 1.010L, Urine Squamous Epithelial Cells 2-5, Urine Urobilinogen NORMAL, Urine WBC 2-5, Urine pH 6 10/01/16 16:20: Alanine Aminotransferase (ALT/SGPT) 13, Albumin 3.3, Alkaline Phosphatase 51, Anion Gap 10, Aspartate Amino Transf (AST/SGOT) 26, BUN/Creatinine Ratio 22, Basophils # (Auto) 0.0, Basophils (%) (Auto) 0, Blood Urea Nitrogen 15, Calcium Level 8.5, Carbon Dioxide Level 22, Chloride Level 105, Creatinine 0.69, Eosinophils # (Auto) 0.0, Eosinophils (%) (Auto) 0, Estimat Glomerular Filtration Rate > 60, Glucose Level 91, Hematocrit 40, Hemoglobin 13.4, Lymphocytes # (Auto) 2.0, Lymphocytes (%) (Auto) 24, Mean Corpuscular Hemoglobin 33, Mean Corpuscular Hemoglobin Concent 34, Mean Corpuscular Volume 99, Mean Platelet Volume 9.7, Monocytes # (Auto) 0.8, Monocytes (%) (Auto) 9, Neutrophils # (Auto) 5.5, Neutrophils (%) (Auto) 67, Platelet Count 209, Potassium Level 4.2, Red Blood Count 4.04L, Red Cell Distribution Width 12.3, Sodium Level 137, Total Bilirubin 0.6, Total Protein 6.3L, White Blood Count 8.3 10/01/16 16:25: Glucometer 100 Microbiology 10/01/16 Urine Culture - Preliminary, Resulted Conclusion/Plan SYNCOPE HYPOTENSION PT GIVEN IV FLUIDS - SYMPTOMS SIGNIFICANTLY IMPROVED - THEN THIS MORNING - PT TOOK HER HOME MEDICATION OF MICARDIS WITHOUT LETTING THE NURSE KNOW SHE HAD HER MEDICATIONS WITH HER. SHE REPORTED ON TAKING THE MICARDIS TO THE NURSING STAFF ABOUT 2-3 HOURS AFTER SHE TOOK THE MEDICATION. I INSTRUCTED THE NURSING STAFF TO GIVE ANOTHER 250ML FLUID BOLUS - MONITOR PRESSURES - WITH HER PRESSURE ABOVE 100/60, PT WAS DISCHARGED TO HOME WITH STRICT INSTRUCTIONS TO NOT TAKE HER MICARDIS. SHE IS TO PRESENT TO MY OFFICE ON TUESDAY AND HAVE HER PRESSURES CHECKED. UTI WAS NOT PRESENT GREER SAAVEDRA MD Oct 02, 2016 11:28
--- NOTE | 2016-10-07 08:19 | Physician Query ---
PQ-Further Specificity Admission/Discharge Admission Date: Oct 01, 2016 at 14:20 Discharge Date: Oct 02, 2016 at 12:24 The medical record reflects the following clinical scenario: History/Risk Factors: ER/SS summary documented: Pt experienced a syncope episode earlier in the day Pts Micardis being held Clinical Findings: 95/53 Treatment: IV fluids Question: Can you further specify Syncope per the clinical indicators above? Please document below. 1. Orthostatic Hypotension 2. Syncope 3. Other, with explanation of the clinical findings. 4. Clinically undetermined, no explanation for the clinical findings. PHYSICIAN RESPONSE Can you specify per above: Other, explanation/clinical finding Explanation/Clinical Findings SYNCOPE DUE TO MEDICATION CAUSING HYPOTENSION Please remember a lack of response to the above will prompt a phone page by CDI/ coding staff. In responding to this query, please exercise your independent professional judgment. The purpose of this communication is to more accurately reflect the complexity of your patients condition. The fact that a question is asked does not imply that any particular answer is desired or expected. Thank you for your timely response to this clarification. Requestors name: [ ] Phone # [ ] THIS PHYSICIAN QUERY FORM IS A PERMANENT PART OF THE MEDICAL RECORD JOSÉ MIGUEL SOSA Oct 07, 2016 08:19 GREER CASTRO MD Oct 13, 2016 09:21
== END 2016-10-02 12:24 | disposition home or self-care (01) | DRG 312 ==
LOC: EDUNIT# 09:07 → ER 09:11 → 4TH 14:20
PROVIDERS: ADMIT Family Medicine; ATTEND Family Medicine
DX: I95.2 Hypotension due to drugs (principal); T44.5X5A Adverse effect of predominantly beta-adrenoreceptor agonists, initial encounter; I10 Essential (primary) hypertension; E78.00 Pure hypercholesterolemia, unspecified; K21.9 Gastro-esophageal reflux disease without esophagitis; Z87.440 Personal history of urinary (tract) infections
CPT/HCPCS: 36415; 70450; 71010; 71275; 72072; 72100; 80053; 81000; 82962; 84484; 85025; 85379; 85610; 85730; 87088; 93005; 93041; 96361; 96365

== ENCOUNTER → 2016-10-08 | Outpatient (CLI) | payer MEDICARE, OTHER ==
[~2016-10-08] MED LIST changes: +HYDROCODONE
--- OUTSIDE RECORDS SUMMARY | 2016-10-08 16:05 | XMS REPORT | Continuity of Care Document ---
Author Author [facility] [address] Organization [facility] [address] Address Unknown Phone Unavailable Care Team Providers Care Senior Marketing Coordinator Name Role Phone GREER CASTRO MD PCP Insurance Providers Payer Name Policy Number Subscriber Name Relationship [employer] [id number] Nicolasa Rowe 18 Self / Same As Patient Comm Crossover Enter Ins Name [id number] Nicolasa Rowe 18 Self / Same As Patient Advance Directives Directive Response Recorded Date/Time Advance Directives No 06/11/16 6:40am Health Care Power of Form Raiser No 06/11/16 6:40am Organ Donor Yes 06/11/16 [...] Reaction Status Last Updated Sulfa (Sulfonamide Antibiotics) ([id number]) Allergy Unknown Active 03/16 Immunizations No immunization records. Vital Signs Acute Vital Signs Vital Response Date/Time Temperature (Fahrenheit) 98.3 degrees F (97.6 - 99.5) 06/11/2016 9:45am Temperature (Calculated Celsius) 36.90743 degrees C (36.4 - 37.5) 06/11/2016 9:45am [...] 0.00 inches 06/11/2016 6:40am Height (Calculated Centimeters) 152.500869 cm 06/11/2016 6:40am Weight (Pounds) 124 pounds 06/11/2016 6:40am Weight (Ounces) 3.0 oz 06/11/2016 6:40am Weight (Calculated Grams) 60202.50 gm 06/11/2016 6:40am Weight (Calculated Kilograms) 56.990833 kilograms 06/11/2016 6:40am Calculated BMI 24.3 06/11/2016 6:40am Results Pending Microbiology Results Procedure Source Collection Date/Time Procedures Procedure Status Date Provider(s) Excision of lesion Completed 06/11/16 MICHELLE REESE MD Encounters Encounter Location Arrival/Admit Date Discharge/Depart Date Attending Provider Departed [facility] [address] 06/11/16 6:03am 10:12am MICHELLE REESE MD Departed Clinic [facility] [address] 06/08/16 1:01pm 06/08/16 2: 01pm MICHELLE REESE MD
--- NOTE | 2016-10-08 16:57 | Diagnostic Imaging Report ---
PROCEDURE: MRI lumbar spine. TECHNIQUE: Multiplanar, multisequence MRI of the lumbar spine was performed without contrast. INDICATION: Chronic low back pain, progressively worsening, additional left leg radiculopathy. No known injury. COMPARISON: None. DISCUSSION: Grade 1 anterolisthesis of L4 on L5 and L5 on S1 is likely secondary to underlying advanced facet arthropathy. No compression fracture identified. The vertebral bodies are otherwise normal in signal intensity. The conus medullaris is normal in position and morphology. The nerve roots of the cauda equina are unremarkable. Extrarenal pelvis is incidentally noted on the right, benign. Otherwise the visualized paraspinal soft tissues are unremarkable. [place]'s disease is noted diffusely throughout the lumbar spine. Degenerative changes as detailed below: L1-L2: Mild degenerative disc disease. Mild facet arthropathy. No disc bulge. No central canal stenosis. No neuroforaminal narrowing. L2-L3: Mild degenerative disc disease. No significant disc bulge. Mild facet arthropathy and ligamentum flavum thickening. No central canal stenosis. Mild left neuroforaminal narrowing. L3-L4: Mild degenerative disc disease. Moderate facet arthropathy and ligamentum flavum thickening. Small diffuse disc bulge. Mild central canal stenosis. Moderate to severe bilateral neuroforaminal narrowing. L4-L5: Moderate degenerative disc disease. Advanced facet arthropathy. Small diffuse disc bulge. Moderate central canal stenosis. Moderate to severe bilateral neuroforaminal stenosis. L5-S1: Moderately advanced degenerative disc disease. Advanced facet arthropathy. Small diffuse disc bulge. Moderate central canal stenosis. Moderate to severe bilateral neuroforaminal stenosis. IMPRESSION: 1. Degenerative changes of the lumbar spine are greatest within the lower lumbar spine and contribute to moderate to severe bilateral neuroforaminal stenosis from L3-S1. There is moderate multilevel central canal stenosis. Dictated by: Dictated on workstation # [id number]
== END ==
LOC: RAD 16:01
PROVIDERS: ATTEND Pain Medicine Pain Medicine
DX: M48.06 Spinal stenosis, lumbar region (principal)
CPT/HCPCS: 72148

== ENCOUNTER 2016-10-15 09:31 | Outpatient (CLI) | payer MEDICARE, OTHER ==
[~2016-10-15] VITALS: Ht 152.4 cm; Wt 56.7 kg
--- OUTSIDE RECORDS SUMMARY | 2016-10-15 09:34 | XMS REPORT | Continuity of Care Document ---
Author Author [facility] Organization [facility] Address Unknown Phone Unavailable Care Team Providers Care Head Wood Grinder Name Role Phone GREER CASTRO MD PCP Insurance Providers Payer Name Policy Number Subscriber Name Relationship [employer] [id number] Nicolasa Rowe 18 Self / Same As Patient Comm Crossover Enter Ins Name [id number] Nicolasa Rowe 18 Self / Same As Patient Advance Directives Directive Response Recorded Date/Time Advance Directives No 06/11/16 6:40am Health Care Power of Vacuum Pan Tender No 06/11/16 6:40am Organ Donor Yes 06/11/16 [...] Reaction Status Last Updated Sulfa (Sulfonamide Antibiotics) ([id number]) Allergy Unknown Active 03/16 Immunizations No immunization records. Vital Signs Acute Vital Signs Vital Response Date/Time Temperature (Fahrenheit) 98.3 degrees F (97.6 - 99.5) 06/11/2016 9:45am Temperature (Calculated Celsius) 36.67530 degrees C (36.4 - 37.5) 06/11/2016 9:45am [...] 0.00 inches 06/11/2016 6:40am Height (Calculated Centimeters) 152.700341 cm 06/11/2016 6:40am Weight (Pounds) 124 pounds 06/11/2016 6:40am Weight (Ounces) 3.0 oz 06/11/2016 6:40am Weight (Calculated Grams) 14366.50 gm 06/11/2016 6:40am Weight (Calculated Kilograms) 56.301644 kilograms 06/11/2016 6:40am Calculated BMI 24.3 06/11/2016 6:40am Results Pending Microbiology Results Procedure Source Collection Date/Time Procedures Procedure Status Date Provider(s) Excision of lesion Completed 06/11/16 MICHELLE REESE MD Encounters Encounter Location Arrival/Admit Date Discharge/Depart Date Attending Provider Departed Surgical Day Care [facility] 06/11/16 6:03am 10:12am MICHELLE REESE MD Departed Clinic [facility] 06/08/16 1:01pm 06/08/16 2: 01pm MICHELLE REESE MD
[2016-10-15] MEDS ORDERED: BUPIVACAINE 0.25% 30 ML (SENSORCAINE) VIAL ONE (09:37)
[2016-10-15] MEDS ORDERED: TRIAMCINOLONE ACET (KENALOG-40) 40 MG/ML 1 ML VIAL ONE (09:37)
[2016-10-15 09:44] VITALS: BP 128/60
[2016-10-15 10:20] VITALS: BP 134/81
--- NOTE | 2016-10-15 11:55 | Pain Medicine-Procedure ---
Procedure Pre-Op/Post-Op Diagnosis Diagnosis: disc disorder with radiculopathy, lumbar Indications for Operation Low back pain Attending Surgeon Moreno Procedure Date of Service: Oct 15, 2016 Procedure: Lumbar Epidural Steroid Injection at the L5-S1 level under Fluoroscopic Guidance Procedure: Patient was identified in the holding area. After risks, benefits, and alternatives were discussed with the patient, informed consent was obtained. Patient was brought to the fluoroscopy suite and placed prone on the procedure room table. A time out was performed. Vital signs were monitored throughout the procedure. The patients low back was prepped and draped in the usual sterile fashion. The patients skin was anesthetized using 2% Lidocaine. A Tuohy needle was inserted and advanced to the L5-S1 epidural space under fluoroscopic guidance using the loss of resistance technique and intermittent projection of fluoroscopy. There was no paresthesia with needle placement. The needle position was confirmed in both the AP and lateral view. After negative aspiration 2ml of contrast was injected under live fluoroscopy which showed good spread of the contrast in the epidural space at the appropriate level, there was no intravascular or subarachnoid spread. Again, after negative aspiration for heme or CSF, 2 ml of 0.25% Bupivicaine, 2ml of preservative free normal saline, and 80mg of Kenalog was injected. The needle was removed and a sterile bandage was placed and the patient was transferred to the recovery area in stable condition. After a brief period of observation, patient was discharged to home with no new neurological deficits and no apparent complications. Complications None ROCHELLE OROZCO MD Oct 15, 2016 11:54 am
== END 2016-10-15 10:21 | disposition home or self-care (01) ==
LOC: CARD 09:31
PROVIDERS: ATTEND Pain Medicine Pain Medicine
DX: M51.16 Intervertebral disc disorders with radiculopathy, lumbar region (principal)
CPT/HCPCS: 62323

== ENCOUNTER → 2017-03-04 | Outpatient (CLI) | payer MEDICARE, OTHER ==
--- NOTE | 2017-03-04 20:11 | Diagnostic Imaging Report ---
Right breast diagnostic mammogram with tomography. The current study was also evaluated with a Computer Aided Detection (CAD) system. COMPARISON: 09/07/2016. FINDINGS: Calcifications in the upper-outer aspect of the right breast appear stable from the prior exam with minimal heterogeneity. No associated mass is seen. These are likely benign. Heterogeneously dense parenchyma in the background is again seen with no abnormality identified. IMPRESSION: Stable mammographic findings and calcifications in the upper-outer aspect of the right breast. Six-month follow-up mammogram to ensure further stability is recommended. ACR BI-RADS Category 3: Probably benign findings. Result letter will be mailed to the patient. Note: At least 10% of breast cancer is not imaged by mammography. Dictated by: Dictated on workstation # [id number]
== END ==
LOC: RAD 07:53
PROVIDERS: ATTEND Nurse Practitioner Family
DX: R92.1 Mammographic calcification found on diagnostic imaging of breast (principal); R92.8 Other abnormal and inconclusive findings on diagnostic imaging of breast

== ENCOUNTER → 2017-08-25 | Outpatient (CLI) | payer MEDICARE ==
--- NOTE | 2017-08-25 12:37 | Diagnostic Imaging Report ---
INDICATION: Six-month followup of right breast calcifications. COMPARISON: Correlation is made with the prior right mammogram from 03/04/2017 as well as bilateral mammography from 08/20/2016, 06/09/2015, and 05/29/2014. TECHNIQUE: Digital diagnostic mammography was performed bilaterally with a Computer Aided Detection (CAD) system. FINDINGS: Moderate density is identified, particularly in the right breast. The calcifications in the upper outer right breast appear stable. These appear to have been stable dating back to 2014 and are likely benign. No associated soft tissue mass is identified. The left breast is stable. No malignant appearing microcalcifications are seen. The axillae are unremarkable. IMPRESSION: No mammographic features suspicious for malignancy. The patient may return to routine annual screening mammography. ACR BI-RADS Category 2: Benign findings. Result letter will be mailed to the patient. Note: At least 10% of breast cancer is not imaged by mammography. Dictated by: Dictated on workstation # [id number]
== END ==
LOC: RAD 08:32
PROVIDERS: ATTEND Family Medicine
DX: R92.8 Other abnormal and inconclusive findings on diagnostic imaging of breast (principal)
CPT/HCPCS: 77066

== ENCOUNTER → 2018-05-05 | Outpatient (CLI) | payer MEDICARE ==
[~2018-05-05] VITALS: Ht 152.4 cm; Wt 55.6 kg
[~2018-05-05] MED LIST changes: +HYDR-3812 PO; -HYDR-3816 PO; +LISI-552 PO
[2018-05-05 09:42] VITALS: BP 130/89
[2018-05-05 10:11] LABS: BASOPHILS % (AUTO) 1 % (0-10); EOSINOPHILS # (AUTO) 0.1 10^3/uL (0.0-0.3); EOSINOPHILS % (AUTO) 1 % (0-10); HEMATOCRIT 43 % (35-52); HEMOGLOBIN 14.2 G/DL (11.5-16.0); LYMPHOCYTES # (AUTO) 2.2 X 10^3 (1.0-4.0); LYMPHOCYTES % (AUTO) 33 % (12-44); MEAN CORPUSCULAR HEMOGLOBIN 32 PG (25-34); MEAN CORPUSCULAR HGB CONC 33 G/DL (32-36); MEAN CORPUSCULAR VOLUME 98 FL (80-99); MEAN PLATELET VOLUME 10.1 FL (7.4-10.4); MONOCYTES # (AUTO) 0.7 X 10^3 (0.0-1.0); MONOCYTES % (AUTO) 11 % (0-12); NEUTROPHILS # (AUTO) 3.5 X 10^3 (1.8-7.8); NEUTROPHILS % (AUTO) 54 % (42-75); PLATELET COUNT 276 10^3/uL (130-400); RED BLOOD COUNT 4.38 10^6/uL (4.35-5.85); RED CELL DISTRIBUTION WIDTH 12.7 % (10.0-14.5); WHITE BLOOD COUNT 6.4 10^3/uL (4.3-11.0)
[2018-05-05 10:13] LABS: BILIRUBIN,URINE NEGATIVE (NEGATIVE); CLARITY,URINE VERY CLOUDY; COLOR,URINE YELLOW; GLUCOSE, URINE (UA) NEGATIVE (NEGATIVE); KETONES,URINE NEGATIVE (NEGATIVE); LEUKOCYTE ESTERASE ,URINE 3+ (NEGATIVE); NITRITE,URINE POSITIVE (NEGATIVE); PH,URINE 5 (5-9); PROTEIN,URINE 2+ (NEGATIVE); UROBILINOGEN,URINE NORMAL (NORMAL)
[2018-05-05 10:25] LABS: BACTERIA,URINE LARGE /HPF; RBC,URINE RARE /HPF; WBC,URINE TNTC /HPF
[2018-05-05 10:25] LABS: PROTHROMBIN TIME PATIENT 13.1 SEC (12.2-14.7)
[2018-05-05 10:30] LABS: BUN/CREATININE RATIO 26; CALCIUM 9.5 MG/DL (8.5-10.1); CARBON DIOXIDE 25 MMOL/L (21-32); CHLORIDE 107 MMOL/L (98-107); GFR ESTIMATED > 60; GLUCOSE 87 MG/DL (70-105); POTASSIUM 4.2 MMOL/L (3.6-5.0); SODIUM 141 MMOL/L (135-145)
--- NOTE | 2018-05-05 11:17 | Diagnostic Imaging Report ---
INDICATION: Preoperative evaluation for knee replacement. COMPARISON: 10/01/2016 FINDINGS: Frontal and lateral views of the chest demonstrate normal heart size and pulmonary vascularity. The lungs are clear. There are no signs of infiltrate, pleural effusions or pneumothoraces. The visualized osseous structures show no acute abnormalities. IMPRESSION: 1. No acute process. No signs of infiltrates, effusions or pneumothoraces. Dictated by: Dictated on workstation # [id number]
== END ==
LOC: PREOP 09:09
PROVIDERS: ATTEND Orthopaedic Surgery
DX: Z01.810 Encounter for preprocedural cardiovascular examination (principal); Z01.811 Encounter for preprocedural respiratory examination; Z01.812 Encounter for preprocedural laboratory examination; Z11.2 Encounter for screening for other bacterial diseases; M17.12 Unilateral primary osteoarthritis, left knee; I10 Essential (primary) hypertension; R53.83 Other fatigue; M79.662 Pain in left lower leg; Z22.322 Carrier or suspected carrier of Methicillin resistant Staphylococcus aureus; R82.90 Unspecified abnormal findings in urine
CPT/HCPCS: 36415; 71046; 80048; 81000; 85025; 85610; 86850; 86900; 86901; 87077; 87081; 87088; 87186; 93005

== ENCOUNTER → 2018-05-11 | Outpatient (CLI) | payer MEDICARE ==
[~2018-05-11] MED LIST changes: +CATHETER FLUSH 10 ML SYR IV PRN; +HYDR-3816 PO; +NFNEB10T PO; +REGADENOSON 0.4 MG/5 ML SYR (LEXISCAN) IV ONE
[2018-05-11 09:18] VITALS: BP 139/100
[2018-05-11 09:20] VITALS: BP 180/102
--- NOTE | 2018-05-11 13:23 | STRESS TEST ---
DATE OF SERVICE: 05/11/2018 RESTING AND POST REGADENOSON TECHNETIUM-99M TETROFOSMIN SPECT CT IMAGING ORDERING PHYSICIAN: Dr. Duval. PRIMARY PHYSICIAN: Dr. Saavedra. CLINICAL DIAGNOSIS: Chest discomfort. Baseline images were carried out after injection of 10.96 mCi of technetium-99m Tetrofosmin. This was followed by 0.4 mg regadenoson and 29.9 mCi of technetium-99m Tetrofosmin for stress imaging. The electrocardiogram showed sinus rhythm at baseline and did not change significantly with the regadenoson infusion. She tolerated the procedure well. Review of images at rest and following stress does not indicate any significant perfusion defects consistent with myocardial ischemia or infarction. Gated images show normal global left ventricular systolic function with normal regional wall motion. Left ventricular ejection fraction is calculated to be 68%. Left ventricular end diastolic volume is 31 mL. TID is absent (1.06). CONCLUSIONS: 1. No evidence of any significant myocardial ischemia or infarction on this study. 2. Normal regional wall motion. 3. Normal global left ventricular systolic function with a calculated ejection fraction of 68%. Job ID: [id number] DocumentID: [id number] Dictated Date: 05/11/2018 13:08:59 Addiction Counselor Date: 05/11/2018 13:22:24 Dictated By: ANDRE DUVAL MD, MA, FACP, FACC,
== END ==
LOC: CARD 07:17
PROVIDERS: ATTEND Internal Medicine Cardiovascular Disease
DX: R07.89 Other chest pain (principal); I10 Essential (primary) hypertension; E78.5 Hyperlipidemia, unspecified
CPT/HCPCS: 78452; 93017

== ENCOUNTER 2018-05-16 05:48 | Inpatient (IN) | payer MEDICARE ==
[~2018-05-16] VITALS: Ht 152.4 cm; Wt 55.6 kg
[~2018-05-16 05:48] MED LIST changes: -CATHETER FLUSH 10 ML SYR IV PRN; -HYDR-3816 PO; -NFNEB10T PO; -REGADENOSON 0.4 MG/5 ML SYR (LEXISCAN) IV ONE
[2018-05-16 06:10] VITALS: BP 189/109
[2018-05-16] MEDS ORDERED: GABAPENTIN 600 MG (NEURONTIN) TAB PO ONE ×2 (06:30→08:00)
[2018-05-16] MEDS ORDERED: DEXAMETHASONE 4 MG/ML SDV (DECADRON) IV ONE ×2 (06:30→08:00)
[2018-05-16] MEDS ORDERED: CELECOXIB 100 MG (CeleBREX) CAP PO ONE ×2 (06:30→08:00)
[2018-05-16] MEDS ORDERED: ceFAZolin 2 GM IV Premixed 50 ML IV ONE ×2 (06:30→08:00)
[2018-05-16] MEDS ORDERED: ONDANSETRON 4 MG/2 ML (SDV) Z0FRAN IVP ONE (06:30)
[2018-05-16] MEDS ORDERED: GLYCOPYRROLATE 0.2 MG/ML (ROBINUL) 2 ML VIAL ONE (06:45)
[2018-05-16] MEDS ORDERED: TRANEXAMIC ACID 100 MG/ML 10 ML INJECTION IV ONE (06:45)
[2018-05-16] MEDS ORDERED: proPOfol 200 MG/20 ML (DIPRIVAN) VIAL IV ONE (06:45)
[2018-05-16] MEDS ORDERED: DEXAMETHASONE 10 MG/ML (DECADRON) 1 ML VIAL ONE (06:45)
[2018-05-16] MEDS ORDERED: ROCURONIUM 10 MG/ML 5 ML SYRINGE IV ONE (06:45)
[2018-05-16] MEDS ORDERED: ONDANSETRON 4 MG/2 ML (SDV) Z0FRAN ONE (06:45)
[2018-05-16] MEDS ORDERED: LIDOCAINE PF 2% 5 ML (XYLOCAINE) VIAL ONE (06:45)
[2018-05-16] MEDS ORDERED: NEOSTIGMINE 1 MG/ML 5 ML SYRINGE ONE (06:45)
[2018-05-16] MEDS ORDERED: SEVOFLURANE (ULTANE) 15 ML INHAL SOLN ONE ×3 (06:45→10:17)
[2018-05-16] MEDS ORDERED: MIDAZOLAM 2 MG/2 ML (VERSED) VIAL ONE (06:46)
[2018-05-16] MEDS ORDERED: fentaNYL INJECTION 100 MCG/2 ML AMP ONE (06:46)
[2018-05-16] MEDS ORDERED: GENTAMICIN 40 MG/ML 2 ML INJ SDV ONE (06:53)
[2018-05-16] MEDS: LACTATED RINGERS 1,000 ML IV PRN ×2 (07:06→08:47)
[2018-05-16] MEDS ORDERED: INTRA-ARTICULAR IU ONE ×4 (07:45)
[2018-05-16] MEDS ORDERED: BUPIVACAINE 0.5% 30 ML (SENSORCAINE) VIAL ONE (07:47)
[2018-05-16] MEDS ORDERED: D5 1/2 NS 1000 ML IV SOLUTION 1,000 ML IV SCH (08:00)
[2018-05-16] MEDS ORDERED: morphine INJ 10 MG/ML 1ML (SYR OR VIAL) IVP PRN (08:00)
[2018-05-16] MEDS ORDERED: PROMETHAZINE INJ 25 MG/ML (PHENERGAN) AMP IVP PRN (08:00)
[2018-05-16] MEDS ORDERED: ONDANSETRON 4 MG/2 ML (SDV) Z0FRAN IV ONE (08:00)
[2018-05-16] MEDS ORDERED: KETOROLAC 15 MG/ML VIAL IVP PRN (08:00)
[2018-05-16] MEDS ORDERED: diphenhydrAMINE 50 MG/ML INJ (BENADRYL) IV PRN (08:00)
[2018-05-16] MEDS ORDERED: ONDANSETRON 4 MG/2 ML (SDV) Z0FRAN IVP PRN (08:00)
[2018-05-16] MEDS ORDERED: BISACODYL 10 MG SUPP (DULCOLAX) PR PRN (08:00)
--- NOTE | 2018-05-16 08:02 | Progress Note-Pre Operative ---
Pre-Operative Progress Note H&P Reviewed The H&P was reviewed, patient examined and no changes noted. Date Seen by Provider: May 16, 2018 Time Seen by Provider: 07:45 Date H&P Reviewed: May 16, 2018 Time H&P Reviewed: 07:45 Pre-Operative Diagnosis: Primary Osteoarthritis Left Knee ROMÁN BIGGS DO May 16, 2018 8:02 am
[2018-05-16] MEDS ORDERED: morphine INJ 4 MG/ML 1 ML (VIAL/SYRINGE) IV PRN (08:15)
[2018-05-16] MEDS ORDERED: LABETALOL HCL 20 MG/4 ML VIAL ONE (08:54)
[2018-05-16] MEDS ORDERED: NEO/POLY/BAC (NEOSPORIN) OINT 15 GM TUBE ONE (09:36)
[2018-05-16] MEDS ORDERED: NEOSPORIN + PAIN RELIEF CREAM 15 GM ONE (09:40)
--- NOTE | 2018-05-16 10:24 | Progress Note-Post Operative ---
Post-Operative Progess Note Surgeon (s)/Masticator (s) Surgeon ROMÁN BIGGS DO Masticator: Gustavo Phan AUCTIONEER TOBACCO-Cat Pre-Operative Diagnosis Primary Osteoarthritis Left Knee Post-Operative Diagnosis Same Procedure & Operative Findings Date of Procedure 05/16/18 Procedure Performed/Findings Left total Knee Arthroplasty Anesthesia Type General with femoral and IPACKS nerve block Estimated Blood Loss Estimated blood loss (mL): 150ml Specimens/Packing Specimens Removed none ROMÁN BIGGS DO May 16, 2018 10:24 am
[2018-05-16] MEDS ORDERED: morphine INJ 10 MG/ML 1ML (SYR OR VIAL) IVP ONE (11:00)
[2018-05-16 11:27] VITALS: BP 165/94
--- NOTE | 2018-05-16 12:12 | Anesthesia-General Post-Op ---
General Patient Condition Mental Status/LOC: Same as Preop Cardiovascular: Satisfactory Nausea/Vomiting: Absent Respiratory: Satisfactory Pain: Controlled Complications: Absent Post Op Complications Complications None Follow Up Care/Instructions Patient Instructions None needed. Anesthesia/Patient Condition Patient Condition Patient is doing well, no complaints, stable vital signs, no apparent adverse anesthesia problems. No complications reported per nursing. DALJIT BOOTH CRNA May 16, 2018 12:12
--- NOTE | 2018-05-16 12:14 | Diagnostic Imaging Report ---
EXAMINATION: Left knee at 1026 hours. INDICATION: Knee pain. FINDINGS: AP and lateral views of the left knee were received from the OR. The previous plain film examination of the left knee performed on 06/01/2012 failed to show any sign of an acute bony abnormality. There was mild narrowing of the medial compartment of the knee joint. On this exam, there is now a total knee prosthesis in place. The prosthetic components appear to be in good position. Skin felicia are also seen along the anterior aspect of the knee joint and there is some gas in the soft tissues about the knee joint. There is no fracture or acute bony abnormality noted. IMPRESSION: Stable post operative left knee. Dictated by: Dictated on workstation # [id number]
[2018-05-16] MEDS: D5 1/2 NS 1000 ML IV SOLUTION 1,000 ML IV SCH ×2 (12:17→22:54)
[2018-05-16] MEDS: ASPIRIN E.C. 325 MG (ECOTRIN) TABLET PO SCH (12:50)
[2018-05-16] MEDS ORDERED: HYDR-3816 PO (14:05)
[2018-05-16] MEDS ORDERED: NFNEB10T PO (14:05)
[2018-05-16] MEDS: ceFAZolin 2 GM IV Premixed 50 ML IV SCH ×2 (15:39→22:54)
[2018-05-16 15:50] VITALS: BP 132/66
[2018-05-16 19:33] VITALS: BP 123/66
[2018-05-17] VITALS (7 sets, daily range): BP systolic 104–144; BP diastolic 55–73
--- NOTE | 2018-05-17 04:04 | OPERATIVE REPORT ---
DATE OF SERVICE: 05/16/2018 PREOPERATIVE DIAGNOSIS: Primary osteoarthritis, left knee. POSTOPERATIVE DIAGNOSIS: Primary osteoarthritis, left knee. PROCEDURE: Left total knee arthroplasty. SURGEON: Román Biggs DO CYLINDER MACHINE OPERATOR: SKYLAR Coppola SURGICAL NURSE STAFF [facility] DUTIES: Gustavo Phan, residential real estate assistant, was utilized throughout the entire procedure for the patient positioning, retraction of soft tissues, placement of total knee implants, wound closure, dressing application and the patient transfer. ANESTHESIA: General with femoral and IPACK nerve block. ESTIMATED BLOOD LOSS: 150 mL. INDICATIONS AND FINDINGS: The patient is a 77-year-old female seen with chief complaint of progressive left knee pain nonresponsive to conservative treatment. The patient demonstrated varus deformity in left knee with a significant amount of degenerative changes throughout the medial patellofemoral compartment. A total knee arthroplasty was performed on the left without complication utilizing the Biomet Curalateguard total knee system with a press fit 62.5 mm femoral component, a cemented 67 mm tibial component, a 31 mm 3-pronged all polyethylene thin cemented patellar component with a 14 mm anterior stabilized tibial bearing implant. PROCEDURE IN DETAIL: The patient was seen by anesthesia preoperatively and under ultrasound guidance, a femoral and IPACK nerve block was performed on the left to decrease postop pain and decrease medication required during the surgical procedure. The patient was transported to the operating room where general inhalation anesthetic was administered. A well-padded pneumatic tourniquet was placed about the upper aspect of the left thigh. A ChloraPrep and sterile drape of the left lower extremity was performed. The left leg was elevated, exsanguinated and the tourniquet was inflated to 300 mmHg pressure. An anterior longitudinal midline incision was made over the anterior surface of the left knee. Incision was deepened through a medial parapatellar incision. The patella was subluxed laterally. Osteophytes from the distal femur were removed with a bone rongeur. A army helicopter pilot hole was then drilled in the distal femur and intramedullary corey was inserted utilizing a 5 degree valgus cutting angle, a distal femoral cutting guide was assembled and a distal femoral osteotomy was completed. The distal femur was sized to a 62.5 mm femoral component. A 4-way cutting block was assembled. Anterior, posterior and chamfer cuts of the distal femur made. The tibia was subluxed anteriorly. Remnants of the medial and lateral menisci as well as the anterior cruciate ligament were excised. A army helicopter pilot hole was then drilled in the proximal tibia. An intramedullary corey was inserted measuring off the exposed bone over the proximal medial tibia. A proximal tibial cutting guide was assembled and the proximal tibial osteotomy was complete, the knee was extended with a provisional spacer and found to be stable in extension. Osteophytes of the patella were removed with a bone rongeur. The posterior aspect of the patella was resected through a cutting guide and drilled through the drill guide. Provisional components were inserted. The knee was cycled through a range of motion. Rotation of the tibial component was noted and marked on the proximal tibia. The proximal tibia was then broached to accept the I-beam stem portion of the implant. The bony surfaces were irrigated extensively with a normal saline solution. Palacos bene cement was then mixed. This was then pressurized in the proximal tibia and the tibial component was cemented in place. The femoral component was press fit into place. The knee was taken into full extension with a provisional tibial bearing implant. The patellar component was cemented in place and held with a clamp. Excess cement was removed. The cement was allowed to set. The provisional tibial bearing implant was removed. A 14 mm anterior stabilized tibial bearing implant was then inserted and locked anteriorly with the locking bar. The knee demonstrated full extension following this with no evidence of instability in mid flexion or full flexion. The tourniquet was released. Hemostasis was obtained with electrocautery. The knee was placed in 90 degrees of flexion. The medial retinaculum was closed with multiple interrupted fccpdz-be-egish sutures of #1 Vicryl reinforced with a running suture of #1 Stratafix. The subcutaneous tissues were closed in layers with 0 and 2-0 Vicryl suture. The skin was closed with stainless steel felicia and Adaptic Neosporin bulky dressing was placed about the left knee. The patient was awakened and was transported to postop recovery with anesthesia personnel present in satisfactory condition. Job ID: [id number] DocumentID: [id number] Dictated Date: 05/16/2018 22:16:59 Boiler Repairman Date: 05/17/2018 04:03:50 Dictated By: ROMÁN BIGGS DO
[2018-05-17 05:45] LABS: MEAN PLATELET VOLUME 10.1 FL (7.4-10.4); RED BLOOD COUNT 3.91 10^6/uL (4.35-5.85); RED CELL DISTRIBUTION WIDTH 12.6 % (10.0-14.5); WHITE BLOOD COUNT 15.4 10^3/uL (4.3-11.0)
[2018-05-17 06:03] LABS: BUN/CREATININE RATIO 12; CALCIUM 9.4 MG/DL (8.5-10.1); CARBON DIOXIDE 22 MMOL/L (21-32); CHLORIDE 106 MMOL/L (98-107); CREATININE SERUM 0.76 MG/DL (0.60-1.30); GFR ESTIMATED > 60; GLUCOSE 125 MG/DL (70-105); POTASSIUM 3.8 MMOL/L (3.6-5.0); SODIUM 141 MMOL/L (135-145)
[2018-05-17] MEDS ORDERED: MILK OF MAGNESIA 400 MG/5 ML 30 ML UDC PO NR (08:00)
[2018-05-17] MEDS: ENOXAPARIN 40 MG/0.4 ML (LOVENOX) SYR SC SCH (08:30)
--- NOTE | 2018-05-17 08:30 | Consultation ---
History of Present Illness History of Present Illness Patient Consulted On(susan/time) 05/17/18 08:27 Date Seen by Provider: May 17, 2018 Time Seen by Provider: 08:30 Reason for Visit: LEFT KNEE ARTHRITIS S/P TOTAL KNEE REPLACEMENT History of Present Illness PT IS A 77 Y/O FEMALE WHO IS WELL KNOWN TO ME FROM CLINIC. SHE PRESENTED TO THE HOSPITAL FOR LEFT TOTAL KNEE REPLACEMENT TO BE DONE BY DR. BIGGS ON 05/16/18. THE PATIENT HAS CHRONIC HYPERTENSION WELL INTERMITTENT DEPRESSION. SHE RESIDES AT [facility] IN AN INDEPENDENT LIVING APARTMENT. Allergies and Home Medications Allergies Coded Allergies: Sulfa (Sulfonamide Antibiotics) (Verified Allergy, Unknown, 06/08/16) Home Medications Hydrocodone/Acetaminophen 1 Each Tablet, 1 TAB PO Q6H PRN for PAIN-MODERATE, ( Reported) Nebivolol HCl 10 Mg Tab, 10 MG PO DAILY, (Reported) Patient Home Medication List Home Medication List Reviewed: Yes Past Tzoymdk-Dtvhxh-Ctvdwl Hx Past Med/Social Hx: Reviewed Nursing Past Med/Soc Hx, Reviewed and Corrections made Patient Social History Alcohol Use: Denies Use Recreational Drug Use: No Smoking Status: Never a Smoker 2nd Hand Smoke Exposure: No Recent Foreign Travel: No Contact w/Someone Who Travel: No Recent Infectious Disease Expo: No Recent Hopitalizations: No Physical Abuse: No Sexual Abuse: No Mistreated: No Fear: No Immunizations Up To Date Date of Pneumonia Vaccine: Jun 07, 2016 Date of Influenza Vaccine: May 01, 2018 Seasonal Allergies Seasonal Allergies: Yes (MILD) Past Medical History Surgeries: Yes (breast lumpectomy x2, right CTR, LEFT CATARACT) Hysterectomy Respiratory: No Cardiac: Yes High Cholesterol, Hypertension Neurological: No Reproductive Disorders: No Sexually Transmitted Disease: No HIV/AIDS: No Genitourinary: Yes UTI-Chronic Gastrointestinal: Yes Gastroesophageal Reflux, Diverticulosis Musculoskeletal: Yes Arthritis, Chronic Back Pain Endocrine: No HEENT: Yes (GLASSES) Cataract Loss of Vision: Bilateral Hearing Impairment: Denies Cancer: Yes Skin, Breast Did You Recieve Any Treatments: Yes What Type of Treatment Did You: Surgical Intervention Psychosocial: Yes Depression Integumentary: No Blood Disorders: No Adverse Reaction/Blood Tranf: No (N/A) Family Medical History Reviewed and Corrections made Cardiovascular disease G8 BROTHER Colon cancer G8 SISTER FH: breast cancer 19 MOTHER Hypertension G8 BROTHER Heart Disease, Cancer, Hypertension Review of Systems-General Constitutional: No chills, No dizziness, No fever, No malaise, No weakness EENTM: No hearing loss, No hoarseness, No throat pain Respiratory: No short of breath, No wheezing Cardiovascular: No chest pain, No palpitations Gastrointestinal: No abdominal pain, No constipation, No diarrhea Genitourinary: no symptoms reported Musculoskeletal: other (LEFT KNEE PAIN - IMPROVED) Skin: No lesions Psychiatric/Neurological: Denies Anxiety, Denies Depressed All Other Systems Reviewed Negative Unless Noted: Yes Physical Exam-General Problems Physical Exam Vital Signs Vital Signs - First Documented 05/16/18 06:10 Temp 97.5 Pulse 63 Resp 18 B/P (MAP) 189/109 (135) Pulse Ox 99 O2 Delivery Room Air Capillary Refill : Less Than 3 Seconds General Appearance: WD/WN, no apparent distress Eyes: Bilateral Eye Normal Inspection, Bilateral Eye PERRL, Bilateral Eye EOMI HEENT: PERRL/EOMI, pharynx normal Neck: non-tender, supple, normal inspection Respiratory: chest non-tender, lungs clear, normal breath sounds, no respiratory distress Cardiovascular: regular rate, rhythm, no edema Gastrointestinal: normal bowel sounds, non tender, soft, no organomegaly Rectal: deferred Back: normal inspection Extremities: normal range of motion, non-tender, normal inspection, no pedal edema, no calf tenderness, normal capillary refill Neurologic/Psychiatric: machine heel seat fitter II-XII nml as tested, no motor/sensory deficits, alert, normal mood/affect, oriented x 3 Skin: warm/dry Lymphatic: no adenopathy Assessment/Plan Assessment/Plan Admission Diagnosis/Plan LEFT KNEE OSTEOARTHRITIS - STATUS POST LEFT KNEE REPLACEMENT HYPERTENSION LEFT KNEE OSTEOARTHRITIS - STATUS POST LEFT KNEE REPLACEMENT - PT IS POST OP DAY #1 - WILL CONTINUE WITH PHYSICAL THERAPY - AND START INPATIENT REHAB TODAY OR TOMORROW. SHE WILL NEED INPT REHAB AND THEN TRANSITION TO HOME HEALTH FOR A SHORT TIME WHEN SHE GOES BACK TO HER HOME. HYPERTENSION - RESTART BYSTOLIC. Admission Status: Inpatient Order (span 2 midnights) Reason for Inpatient Admission: LEFT KNEE REPLACEMENT Clinical Quality Measures DVT/VTE Risk/Contraindication: Risk Factor Score Per Nursin RFS Level Per Nursing on Admit: 4+=Very High GREER CASTRO MD May 17, 2018 08:30
[2018-05-17] MEDS: ASPIRIN E.C. 325 MG (ECOTRIN) TABLET PO SCH (08:31)
[2018-05-17] MEDS: SENNA W/DOCUSATE (SENOKOT S) TABLET PO SCH ×2 (08:31→20:28)
[2018-05-17] MEDS: NEBIVOLOL 5 MG TAB (BYSTOLIC) PO SCH (08:31)
[2018-05-17] MEDS: HYDROcodone/APAP 10 MG/325 MG (LORTAB) TAB PO PRN ×3 (08:31→20:28)
[2018-05-17] MEDS ORDERED: NON-FORMULARY MEDICATION 1 EA EA (Fluoxetine HCl (Prozac) 20 MG) PO SCH (09:00)
[2018-05-17] MEDS ORDERED: lisINopril 20 MG (PRINIVIL) TABLET PO SCH (09:00)
[2018-05-17] MEDS ORDERED: FLUoxetine HCL 20 MG (PROzac) CAP PO SCH (09:00)
--- NOTE | 2018-05-17 10:17 | Physical Therapy Evaluation ---
PT Evaluation-General Medical Diagnosis Admission Date May 16, 2018 at 05:48 Medical Diagnosis: left TKA Onset Date: May 16, 2018 Therapy Diagnosis Therapy Diagnosis: impaired mobility, strength, endurance, ROM Height/Weight Height (Feet): 5 Height (Inches): 0.00 Weight (Pounds): 122 Weight (Ounces): 9.0 Precautions Precautions/Isolations: Fall Prevention, Standard Precautions Weight Bear Status Right Lower Extremity: Right Full Weight Bearing Left Lower Extremity: Left Weight Bearing/Tolerated Referral Physician: Gustavo Phan APRN Reason for Referral: Evaluation/Treatment Social History Home: Single Level Current Living Status: Alone Entry Into Home: Level Entry Prior/Core FIM Prior Level of Function Functional [place] Measure 0=Not Assessed/NA 4=Minimal Assistance 1=Total Assistance 5=Supervision or Setup 2=Maximal Assistance 6=Modified [place] 3=Moderate Assistance 7=Complete IndependenceIRFPAI Quality Coding Scale 6 Independent with activity with or without an assistive device 5 Patient requires set up or clean up by helper. Patient completes activity by themselves 4 Supervision or touching assist (CGA). [place] provide cues , steadying assist 3 The helper provides less than half the effort to complete the activity 2 The helper provides more than half the effort to complete the activity 1 Dependent. The helper does all the effort to complete an activity 7 Patient refused to complete or attempt activity 9 The patient did not perform the activity before the current illness or injury 88 Not attempted due to Medical conditions or safety concerns Bed Mobility: 7 Transfers (B,C,W/C) (FIM): 7 Gait: 6 Patient states she was using a SPC PT Evaluation-Current Subjective Patient in bed pre tx, agrees to PT, no complaints of pain Pt/Family Goals to be independent at home Objective Patient Orientation: Person, Place, Situation Attachments: SCD's, Polar Pack, IV ROM/Strength ROM Lower Extremities left knee extension +3 degrees, flexion 80 degrees Strength Lower Extremities NT Neuromuscular (Tone, Coordination, Reflexes) NT Sensory Vision: Functional Hearing: Functional Sensation Right Lower Extremit: Intact Sensation Left Lower Extremity: Impaired Sensation Lower Extremities Patient had intact light touch sensation in left knee but it was decreased, she also had an DANNY wrap on her leg. Transfers Functional [place] Measure 0=Not Assessed/NA 4=Minimal Assistance 1=Total Assistance 5=Supervision or Setup 2=Maximal Assistance 6=Modified [place] 3=Moderate Assistance 7=Complete [place] Transfers (B, C, W/C) (FIM): 4 Scootin Rollin Supine to/from Sit: 5 Sit to/from Stand: 4 CGA for sit to stand, cues for safety and hand placement, no dizziness or light headedness upon standing Gait Mode of Locomotion: Walk Anticipated Mode of Locomotion: Walk Gait (FIM): 4 Distance: 150' Gait Level of Assist: 4 Gait Persons Needed: 1 Gait Assistive Device: FWW Comments/Gait Description Patient ambulated 150' with a rolling walker with CGA, steady ambulation, good step-trough and heel strike, fair knee flexion. Balance Sitting Static: Normal Sitting Dynamic: Normal Standing Static: Good Standing Dynamic: Good Treatment left total knee exercises x10 (AP, QS, HS, SAQ, SLR), CPM donned at -2/60 and fit to patient, patient in bed post tx with nurse call, phone, tray, SCD's on, [facility] Assessment/Needs Patient has impaired mobility, strength, endurance, ROM post left TKA. Rehab Potential: Fair PT Short Term Goals Short Term Goals Time Frame: May 24, 2018 Transfers (B,C,W/C) (FIM): 5 Gait (FIM): 5 Gait Distance Comment: 200' Gait Level of Assist: 5 Gait Assistive Device: FWW PT Plan Problem List Problem List: Activity Tolerance, Functional Strength, Safety, Balance, Gait, Transfer, Bed Mobility, ROM Treatment/Plan Treatment Plan: Continue Plan of Care Treatment Plan: Bed Mobility, Education, Functional Activity Kelly, Functional Strength, Gait, Safety, Therapeutic Exercise, Transfers Treatment Duration: May 24, 2018 Frequency: 11 times per week Estimated Hrs Per Day: .25 hour per day (15-30') Patient and/or Family Agrees t: Yes Safety Risks/Education Patient Education: Gait Training, Transfer Techniques, Reviewed Precautions, Reviewed Use of Ice, Correct Positioning, Safety Issues Teaching Recipient: Patient Teaching Methods: Demonstration, Discussion Response to Teaching: Reinforcement Needed Discharge Recommendations Plan Patient will perform bed mobility and transfer training, balance and endurance training, functional strengthening, stair training, gait training, and education , to improve functional mobility and independence at home. Therapy D/C Recommendations: Home w/ Family Support Time/GCodes Time In: 0940 Time Out: 1005 Total Billed Treatment Time: 25 Total Billed Treatment 1 visit EVL 15' GT 10' MAICOL CAMARGO PT May 17, 2018 10:17
[2018-05-17] MEDS: D5 1/2 NS 1000 ML IV SOLUTION 1,000 ML IV SCH ×2 (10:27→14:40)
--- NOTE | 2018-05-17 12:10 | Progress Note (SOAP) ---
Subjective Date Seen by a Provider: May 17, 2018 Time Seen by a Provider: 12:00 Subjective/Events-last exam Awake and alert no complaints Review of Systems General: No Chills, No Night Sweats, No Fatigue, No Malaise, No Appetite, No Other HEENT: No Head Aches, No Visual Changes, No Eye Pain, No Ear Pain, No Dysphasia , No Sinus Congestion, No Post Nasal Drip, No Sore Throat, No Other Pulmonary: No Dyspnea, No Cough, No Pleuritic Chest Pain, No Other Cardiovascular: No: Chest Pain, Palpitations, Orthopnea, Paroxysmal Noc. Dyspnea, Edema, Lt Headedness, Other Gastrointestinal: No: Nausea, Vomiting, Abdominal Pain, Diarrhea, Constipation , Melena, Hematochezia, Other Genitourinary: No Dysuria, No Frequency, No Incontinence, No Hematuria, No Retention, No Other Musculoskeletal: No: other, neck pain, shoulder pain, arm pain, back pain, hand pain, leg pain, foot pain Neurological: No: Weakness, Numbness, Incoordination, Change in speech, Confusion, Seizures, Other Objective Exam Vital Signs Date Time Temp Pulse Resp B/P (MAP) Pulse Ox O2 Delivery O2 Flow Rate FiO2 05/17/18 08:00 97.5 64 16 132/73 (92) 93 Room Air 05/17/18 04:00 96.8 77 20 128/71 (90) 95 Room Air 05/17/18 00:00 95.3 69 20 117/59 (78) 92 Room Air 05/16/18 21:00 Room Air 05/16/18 19:33 96.7 69 16 123/66 (85) 95 Room Air 05/16/18 15:50 95.4 67 18 132/66 (88) 94 Room Air 05/16/18 12:33 Room Air I & O 05/17/18 07:00 Intake Total 2270 ml Output Total 1950 ml Balance 320 ml Capillary Refill : Less Than 3 Seconds General Appearance: No Apparent Distress HEENT: PERRL/EOMI Neck: Normal Inspection Respiratory: Chest Non Tender Cardiovascular: Regular Rate, Rhythm Peripheral Pulses: 2+ Left Dors-Pedis (L) Gastrointestinal: normal bowel sounds Extremity: Other (dressing dry and intact left leg) Neurologic/Psychiatric: Alert Results Lab Laboratory Tests 05/17/18 05:26: White Blood Count 15.4H, Red Blood Count 3.91L, Hemoglobin 13.0, Hematocrit 38, Mean Corpuscular Volume 96, Mean Corpuscular Hemoglobin 33, Mean Corpuscular Hemoglobin Concent 35, Red Cell Distribution Width 12.6, Platelet Count 240, Mean Platelet Volume 10.1, Sodium Level 141, Potassium Level 3.8, Chloride Level 106, Carbon Dioxide Level 22, Anion Gap 13, Blood Urea Nitrogen 9, Creatinine 0.76, Estimat Glomerular Filtration Rate > 60, BUN/Creatinine Ratio 12, Glucose Level 125H, Calcium Level 9.4 Assessment/Plan Assessment/Plan Assess & Plan/Chief Complaint Status post left total knee arthroplasty Final Diagnosis Primary osteoarthritis left knee Clinical Quality Measures DVT/VTE Risk/Contraindication: Risk Factor Score Per Nursin RFS Level Per Nursing on Admit: 4+=Very High ROMÁN BIGGS DO May 17, 2018 12:10 pm
--- NOTE | 2018-05-17 14:59 | Physical Therapy Daily Note ---
PT Daily Note-Current Subjective Pt. states she is very pleased with the outcome of her knee so far and is having very little pain and more mobility. Agrees to Rx Pain Numeric Pain Scale: 2 Location: Left Location Body Site: Knee Pain Description: Dull Mental Status Patient Orientation: Normal For Age Attachments: IV Transfers Functional [place] Measure 0=Not Assessed/NA 4=Minimal Assistance 1=Total Assistance 5=Supervision or Setup 2=Maximal Assistance 6=Modified [place] 3=Moderate Assistance 7=Complete IndependenceIRFPAI Quality Coding Scale 6 Independent with activity with or without an assistive device 5 Patient requires set up or clean up by helper. Patient completes activity by themselves 4 Supervision or touching assist (CGA). [place] provide cues , steadying assist 3 The helper provides less than half the effort to complete the activity 2 The helper provides more than half the effort to complete the activity 1 Dependent. The helper does all the effort to complete an activity 7 Patient refused to complete or attempt activity 9 The patient did not perform the activity before the current illness or injury 88 Not attempted due to Medical conditions or safety concerns in out bed, all sit to stands CGA to SBA Weight Bearing Right Lower Extremity: Right Full Weight Bearing Left Lower Extremity: Left Weight Bearing/Tolerated Gait Training Gait Assistive Device: FWW gait training 250ft slow, no LOB, SBA to CGA and assist for IV, good technique and equal step length Exercises Supine Ex: Bridging, Quad Set, Heel Slides, Short Arc Quads, Scooting, Straight leg raise (indep) Supine Reps: 20 Assessment Current Status: Excellent Progress AROM approx 0 - 65 degrees PT Short Term Goals Short Term Goals Time Frame: May 24, 2018 Transfers (B,C,W/C) (FIM): 5 Gait (FIM): 5 Gait Distance Comment: 200' Gait Level of Assist: 5 Gait Assistive Device: FWW PT Plan Treatment/Plan Treatment Plan: Continue Plan of Care Treatment Plan: Bed Mobility, Education, Functional Activity Kelly, Functional Strength, Gait, Safety, Therapeutic Exercise, Transfers Treatment Duration: May 24, 2018 Frequency: 11 times per week Estimated Hrs Per Day: .25 hour per day (15-30') Patient and/or Family Agrees t: Yes Safety Risks/Education Patient Education: Gait Training, Transfer Techniques, Correct Positioning, Disease Process, Safety Issues Teaching Recipient: Patient Teaching Methods: Demonstration, Discussion Response to Teaching: Verbalize Understanding, Return Demonstration Time/GCodes Time In: 1425 Time Out: 1455 Total Billed Treatment Time: 30 Total Billed Treatment 1,GT13m,GT17m G Codes Necessary: OLINDA Coffman [employer] May 17, 2018 14:59
--- NOTE | 2018-05-17 15:25 | Occupational Therapy Eval ---
OT Evaluation-General/PLF Medical Diagnosis Admission Date May 16, 2018 at 05:48 Medical Diagnosis: left TKA Onset Date: May 16, 2018 Therapy Diagnosis Therapy Diagnosis: decreased self care skills Height/Weight Height (Feet): 5 Height (Inches): 0.00 Weight (Pounds): 122 Weight (Ounces): 9.0 Precautions Precautions/Isolations: Fall Prevention, Standard Precautions Safety Interventions: None Referral Physician: Gustavo Phan APRN Medical History Pertinent Medical History: GERD, HTN Additional Medical History depression, right CTR, high cholesterol, UTI-chronic, diverticulosis, chronic back pain, breast cancer Current History pt s/p elective left TKA Social History Home: Single Level Current Living Status: Alone Entry Into Home: Level Entry Pt lives at [facility] ADL-Prior Level of Function Functional [place] Measure 0=Not Assessed/NA 4=Minimal Assistance 1=Total Assistance 5=Supervision or Setup 2=Maximal Assistance 6=Modified [place] 3=Moderate Assistance 7=Complete [place] ADL PLOF Comments Pt reports being independent with self care and mobility prior to surgery. Uses cane for mobility. Self Care 6 DME/Equipment: Grab Bars, Tub/Shower OT Current Status Subjective Pt in bed, agrees to therapy. Pt states her block has worn off and she is having more pain now. Mental Status/Objective Patient Orientation: Person, Place, Situation Attachments: IV Current Glasses/Contacts: Yes (reading glasses) Hand Dominance: Right Upper Extremity ROM Grossly WFL Upper Extremity Coordination Intact Upper Extremity Sensation Intact per pt report Upper Extremity Strength Grossly WFL ADL-Treatment ADL-Current Pt supine to sit with supervision. Pt demonstrates ability to doff/don socks with SBA while seated EOB. Sit to stand with supervision. Gait to restroom with FWW, assist for IV pole. Transfer to toilet with CGA using grab bars. Pt able to complete toileting hygiene and clothing management with supervision. Pt stood at sink to wash hands with SBA. Return to EOB with SBA. Pt eating lunch without assistance, needs met after session. Functional [place] Measure 0=Not Assessed/NA 4=Minimal Assistance 1=Total Assistance 5=Supervision or Setup 2=Maximal Assistance 6=Modified [place] 3=Moderate Assistance 7=Complete IndependenceIRFPAI Quality Coding Scale 6 Independent with activity with or without an assistive device 5 Patient requires set up or clean up by helper. Patient completes activity by themselves 4 Supervision or touching assist (CGA). [place] provide cues , steadying assist 3 The helper provides less than half the effort to complete the activity 2 The helper provides more than half the effort to complete the activity 1 Dependent. The helper does all the effort to complete an activity 7 Patient refused to complete or attempt activity 9 The patient did not perform the activity before the current illness or injury 88 Not attempted due to Medical conditions or safety concerns Eating (FIM): 7 Lower Body Dressing (FIM): 5 (socks only) Toileting (FIM): 5 Toilet/Commode Transfer (FIM): 4 (CGA) Education OT Patient Education: Rehab process Teaching Recipient: Patient Teaching Methods: Discussion Response to Teaching: Verbalize Understanding OT Short Term Goals Short Term Goals Transfers (B,C,W/C) (FIM): 5 1=Demonstrate adherence to instructed precautions during ADL tasks. 2=Patient will verbalize/demonstrate understanding of assistive devices/ modifications for ADL. 3=Patient will improve strength/tolerance for activity to enable patient to perform ADL's. OT Care Home Goals Care Home Goals Time Frame: May 27, 2018 Bathing(FIM): 5 Upper Body Dressing(FIM): 6 Lower Body Dressing(FIM): 5 Toileting(FIM): 6 Toilet/Commode Transfer(FIM): 6 Additional Goals: 2-Verbalize Understanding, 3-ImproveStrength/Kelly 1=Demonstrate adherence to instructed precautions during ADL tasks. 2=Patient will verbalize/demonstrate understanding of assistive devices/ modifications for ADL. 3=Patient will improve strength/tolerance for activity to enable patient to perform ADL's. OT Education/Plan Problem List/Assessment Pt s/p elective left TKA with decreased ADL functioning and mobility. Pt to benefit from skilled OT intervention for ADL training, transfers, strengthening , and home safety education. Discharge Recommendations Plan/Recommendations: Continue POC Treatment Plan/Plan of Care Treatment,Training & Education: Yes Patient would benefit from OT for education, treatment and training to promote independence in ADL's, mobility, safety and/or upper extremity function for ADL' s. Plan of Care: ADL Retraining, Functional Mobility, UE Funct Exercise/Act Treatment Duration: May 27, 2018 Frequency: 5 times per week Estimated Hrs Per Day: .25 hour per day Rehab Potential: Good Time/GCodes Start Time: 13:23 Stop Time: 13:50 Total Time Billed (hr/min): 27 Billed Treatment Time 1 visit, EVL(12minutes), ADL(15minutes) MARIA ISABEL JERRY OT May 17, 2018 15:25
[2018-05-18] MEDS: HYDROcodone/APAP 10 MG/325 MG (LORTAB) TAB PO PRN ×2 (00:33→07:33)
[2018-05-18] MEDS: D5 1/2 NS 1000 ML IV SOLUTION 1,000 ML IV SCH (02:44)
[2018-05-18 04:25] VITALS: BP 120/67
--- NOTE | 2018-05-18 06:27 | Progress Note (SOAP) ---
Subjective Date Seen by a Provider: May 18, 2018 Time Seen by a Provider: 06:25 Subjective/Events-last exam Patient has no complaints. ambulating well with assistance. Pain controlled with oral meds. Eating and drinking well. Objective Exam Vital Signs Date Time Temp Pulse Resp B/P (MAP) Pulse Ox O2 Delivery O2 Flow Rate FiO2 05/18/18 04:25 97.0 80 16 120/67 (84) 92 Room Air 05/17/18 23:49 97.6 65 18 130/60 (83) 92 Room Air 05/17/18 19:29 98.1 67 16 144/67 (92) 94 Room Air 05/17/18 15:47 97.9 70 16 104/55 (71) 93 Room Air 05/17/18 12:00 98.4 68 18 106/60 (75) 96 Room Air 05/17/18 08:00 97.5 64 16 132/73 (92) 93 Room Air I & O 05/18/18 07:00 Intake Total 1650 ml Output Total 1100 ml Balance 550 ml Capillary Refill : Less Than 3 Seconds General Appearance: No Apparent Distress Extremity: Normal Capillary Refill, Normal Inspection, No Calf Tenderness Neurologic/Psychiatric: Alert, Oriented x3, No Motor/Sensory Deficits, Normal Mood/Affect Skin: Normal Color, Warm/Dry (dressing left knee CDI) Assessment/Plan Assessment/Plan Assess & Plan/Chief Complaint A: s/p Left TKA, Primary OA left knee P: Continue therapy. Plan to DC today to home with [facility]. Clinical Quality Measures DVT/VTE Risk/Contraindication: Risk Factor Score Per Nursin RFS Level Per Nursing on Admit: 4+=Very High EVELINA DESOUZA APRN May 18, 2018 6:27 am
[2018-05-18] MEDS ORDERED: ASPI325T32 PO (06:30)
[2018-05-18] MEDS ORDERED: SENN-20 PO (06:30)
[2018-05-18] MEDS ORDERED: HYDR-3820 PO (06:30)
[2018-05-18 06:41] LABS: HEMOGLOBIN 11.4 G/DL (11.5-16.0); MEAN PLATELET VOLUME 10.6 FL (7.4-10.4); RED BLOOD COUNT 3.52 10^6/uL (4.35-5.85); WHITE BLOOD COUNT 9.7 10^3/uL (4.3-11.0)
[2018-05-18 06:57] LABS: BUN/CREATININE RATIO 13; CALCIUM 8.5 MG/DL (8.5-10.1); CARBON DIOXIDE 26 MMOL/L (21-32); CHLORIDE 106 MMOL/L (98-107); GFR ESTIMATED > 60; GLUCOSE 92 MG/DL (70-105); POTASSIUM 3.4 MMOL/L (3.6-5.0); SODIUM 141 MMOL/L (135-145)
[2018-05-18] MEDS: NEBIVOLOL 5 MG TAB (BYSTOLIC) PO SCH (07:33)
[2018-05-18] MEDS: ENOXAPARIN 40 MG/0.4 ML (LOVENOX) SYR SC SCH (07:34)
[2018-05-18] MEDS: ASPIRIN E.C. 325 MG (ECOTRIN) TABLET PO SCH (07:34)
[2018-05-18] MEDS: SENNA W/DOCUSATE (SENOKOT S) TABLET PO SCH (07:34)
[2018-05-18 08:00] VITALS: BP 108/63
--- NOTE | 2018-05-18 08:57 | D/C HH Face to Face Order ---
D/C Face to Face Orders Instructions for Patient [facility] Patient Instructions/FollowUp: hospital will get patient set up for [facility] health as they have home health aides [facility]ician to follow [facility]: [facility] Discharge Diet for Home: Regular Diet Patient Problems: post-op left knee replacement hypertension osteoarthritis Patient Data-Allergies,Ht & Wt Patient Allergies: Coded Allergies: Sulfa (Sulfonamide Antibiotics) (Verified Allergy, Unknown, 06/08/16) Height (Feet): 5 Height (Inches): 0.00 Weight (Pounds): 122 Weight (Ounces): 9.0 Home Health Need/Face to Face Date of Face to Face: May 18, 2018 Clinical Findings: Generalized weakness and fatigue I have seen Pt [id number]: Yes Discharged To: Home Diagnosis/Conditions: post-op left knee replacement hypertension arthritis Patient is Homebound due to: Muscle weakness, Pain w/ambulation (due to recent surgery) Homebound Status Due to the above stated illness, injury or surgical procedure (medical condition or diagnosis) and associated clinical findings, the patient is homebound because of his/her inability to leave home except with aid of a supportive device and/or person AND leaving the home requires a considerable and taxing effort or is medically contraindicated. Pt req the following assistanc: Medically contraindicated Home Health Nursing Orders Home Health Services Order: Nursing Services, Physical Therapy-Evaluate & Treat , Other (home health aide) aide to assist with bathing nursing to set up meds and monitor blood pressure and bowels physical therapy to eval and treat for weakness Home Health Infusion Therapy Line Start Date: May 16, 2018 Line Start Time: 0630 Line Type: Peripheral IV Site Location: Wrist Therapy Orders Therapy Orders: Physical Therapy, PT to assess for OT Therapy Specific Orders: Eval assistive deivces, Teach enviro modifications/ safety, Increase strength/endurance Certify Stmt I certify that this patient is under my care and that I, a nurse practitioner or a physician; a geriatric nursing assistant working with me, had a face to face encounter that - meets the physician face to face encounter requirements with this patient as dated. GREER CASTRO MD May 18, 2018 08:57
--- NOTE | 2018-05-18 09:01 | Physical Therapy Daily Note ---
PT Daily Note-Current Subjective Patient in recliner and agrees to PT. Reports she has received pain medication. Pain Numeric Pain Scale: 5-Moderate Pain Location: Left Location Body Site: Knee Pain Description: Acute Mental Status Patient Orientation: Normal For Age Transfers Functional [place] Measure 0=Not Assessed/NA 4=Minimal Assistance 1=Total Assistance 5=Supervision or Setup 2=Maximal Assistance 6=Modified [place] 3=Moderate Assistance 7=Complete IndependenceIRFPAI Quality Coding Scale 6 Independent with activity with or without an assistive device 5 Patient requires set up or clean up by helper. Patient completes activity by themselves 4 Supervision or touching assist (CGA). [place] provide cues , steadying assist 3 The helper provides less than half the effort to complete the activity 2 The helper provides more than half the effort to complete the activity 1 Dependent. The helper does all the effort to complete an activity 7 Patient refused to complete or attempt activity 9 The patient did not perform the activity before the current illness or injury 88 Not attempted due to Medical conditions or safety concerns Transfers (B, C, W/C) (FIM): 6 Scootin Supine to/from Sit: 6 Sit to/from Stand: 6 Bed to/from Chair: 6 Weight Bearing Right Lower Extremity: Right Full Weight Bearing Left Lower Extremity: Left Weight Bearing/Tolerated Gait Training Gait (FIM): 6 Distance (FIM): 3=150 ft Distance: 175' Gait Level of Assist: 6 Gait Assistive Device: FWW steady, antalgic/patient has been instructed to ambulate PRN in hallway with family Exercises Supine Ex: Ankle pumps, Quad Set, Heel Slides, Straight leg raise Supine Reps: 10 Seated Therapy Exercises: Long arc quads Seated Reps: 20 Assessment Patient progressing with treatment plan. Patient will receive home health upon dismissal to home with son. Patient is currently at [facility] with all gross motor skills safely. Limited due to pain. PT Short Term Goals Short Term Goals Time Frame: May 24, 2018 Transfers (B,C,W/C) (FIM): 5 Gait (FIM): 5 Gait Distance Comment: 200' Gait Level of Assist: 5 Gait Assistive Device: FWW PT Plan Treatment/Plan Treatment Plan: Continue Plan of Care Treatment Plan: Bed Mobility, Education, Functional Activity Kelly, Functional Strength, Gait, Safety, Therapeutic Exercise, Transfers Treatment Duration: May 24, 2018 Frequency: 11 times per week Estimated Hrs Per Day: .25 hour per day (15-30') Patient and/or Family Agrees t: Yes Time/GCodes Time In: 800 Time Out: 23 Total Billed Treatment Time: 23 Total Billed Treatment 1 visit EX 8 min GT 15 min BRADLEY WEINTSEIN PT May 18, 2018 09:01
--- NOTE | 2018-05-18 09:15 | Discharge Summary ---
Diagnosis/Chief Complaint Date of Admission May 16, 2018 at 05:48 Date of Discharge Discharge Date: May 18, 2018 Discharge Time: 929 Admission Diagnosis Admission Diagnosis LEFT KNEE OSTEOARTHRITIS - STATUS POST LEFT KNEE REPLACEMENT HYPERTENSION Discharge Diagnosis LEFT KNEE OSTEOARTHRITIS - STATUS POST LEFT KNEE REPLACEMENT HYPERTENSION Reason Hospital Visit PT IS A 77 Y/O FEMALE WHO IS WELL KNOWN TO ME FROM CLINIC. SHE PRESENTED TO THE HOSPITAL FOR LEFT TOTAL KNEE REPLACEMENT TO BE DONE BY DR. BIGGS ON 05/16/18. THE PATIENT HAS CHRONIC HYPERTENSION WELL INTERMITTENT DEPRESSION. SHE RESIDES AT [facility] IN AN INDEPENDENT LIVING APARTMENT. Discharge Summary Procedures: LEFT TOTAL KNEE REPLACEMENT Discharge Physical Examination Allergies: Coded Allergies: Sulfa (Sulfonamide Antibiotics) (Verified Allergy, Unknown, 06/08/16) Vitals & I&Os Vital Signs Date Time Temp Pulse Resp B/P (MAP) Pulse Ox O2 Delivery O2 Flow Rate FiO2 05/18/18 08:00 97.8 67 18 108/63 (78) 95 Room Air General Appearance: Alert, Oriented X3, Cooperative, No Acute Distress HEENT: Atraumatic, PERRLA, Mucous Memb Moist/Herreid Respiratory: Clear to Auscultation, Normal Air Movement Cardiovascular: Regular Rate Abdominal: Normal Bowel Sounds, Soft, No Tenderness Extremities: No Clubbing, No Cyanosis, Other (left knee bandaged) Neuro: Normal Speech, Cranial Nerves 3-12 NL Psych/Mental Status: Mental Status NL, Mood NL Hospital Course LEFT KNEE OSTEOARTHRITIS - STATUS POST LEFT KNEE REPLACEMENT HYPERTENSION LEFT KNEE OSTEOARTHRITIS - STATUS POST LEFT KNEE REPLACEMENT - PT IS POST OP DAY #2 - WILL CONTINUE WITH PHYSICAL THERAPY - SHE DOES NOT QUALIFY FOR INPATIENT REHAB, AND WOULD RATHER GO HOME THAN GO TO A [facility], THEREFORE, DISCHARGE TO HOME WITH [facility] FOR NURSING, PHYSICAL THERAPY AND HOME HEALTH AIDE. PT DOING WELL WITH HYDROCODONE POST-OPERATIVELY - WILL WEAN OFF AFTER THE SURGERY OVER THE NEXT 2 WEEKS AND STOP MEDICATION EXCEPT FOR TYLENOL THEREAFTER. PT REPORTS THAT HER SON WILL STAY WITH HER IN HER HOME TO AIDE HER OVER THE NEXT 1-2 WEEKS. HYPERTENSION - RESTART BYSTOLIC PER HOME REGIMEN RTC IN 1 WK WITH [facility] BIGGS TO PUT IN ORDERS FOR HER FOLLOW UP WITH HIS CLINIC. Pending Labs Laboratory Tests 05/18/18 05:55: White Blood Count 9.7, Red Blood Count 3.52, Hemoglobin 11.4, Hematocrit 35, Mean Corpuscular Volume 98, Mean Corpuscular Hemoglobin 32, Mean Corpuscular Hemoglobin Concent 33, Red Cell Distribution Width 13.0, Platelet Count 204, Mean Platelet Volume 10.6, Sodium Level 141, Potassium Level 3.4, Chloride Level 106, Carbon Dioxide Level 26, Anion Gap 9, Blood Urea Nitrogen 9, Creatinine 0.70, Estimat Glomerular Filtration Rate > 60, BUN/Creatinine Ratio 13, Glucose Level 92, Calcium Level 8.5 Discharge Condition at discharge IMPROVED - BUT DC WITH HOME HEALTH Instructions to patient/family Please see electronic discharge instructions given to patient. Discharge Medications Reviewed and agree with Discharge Medication list on patient's Discharge Instruction sheet Medication List: Active Scripts Active Senna-Time S Tablet (Sennosides/Docusate Sodium) 1 Each Tablet 1 Ea PO BID Aspirin EC (Aspirin) 325 Mg Tablet.dr 325 Mg PO DAILY 30 Days Hydrocodon-Acetaminophn 10-325 (Hydrocodone/Acetaminophen) 1 Each Tablet 1 Ea PO Q4H PRN Reported Bystolic (Nebivolol HCl) 10 Mg Tab 10 Mg PO DAILY Clinical Quality Measures DVT/VTE Risk/Contraindication: Risk Factor Score Per Nursin RFS Level Per Nursing on Admit: 4+=Very High GREER CASTRO MD May 18, 2018 09:15
[2018-05-18 11:45] VITALS: BP 108/63
== END 2018-05-18 11:45 | disposition home health service (06) | DRG 470 ==
LOC: 4TH 05:48
PROVIDERS: ADMIT Orthopaedic Surgery; ATTEND Orthopaedic Surgery
PROC: 3E0T3BZ Introduction of Anesthetic Agent into Peripheral Nerves and Plexi, Percutaneous Approach (ICD-10-PCS; 2018-05-16)
PROC: 0SRD0J9 Replacement of Left Knee Joint with Synthetic Substitute, Cemented, Open Approach (ICD-10-PCS; principal; 2018-05-16 08:09)
DX: M17.12 Unilateral primary osteoarthritis, left knee (principal); I10 Essential (primary) hypertension; E78.00 Pure hypercholesterolemia, unspecified; F41.9 Anxiety disorder, unspecified; F43.9 Reaction to severe stress, unspecified; K21.9 Gastro-esophageal reflux disease without esophagitis; K57.90 Diverticulosis of intestine, part unspecified, without perforation or abscess without bleeding; F32.9 Major depressive disorder, single episode, unspecified; Z87.440 Personal history of urinary (tract) infections; Z85.3 Personal history of malignant neoplasm of breast; Z85.828 Personal history of other malignant neoplasm of skin
CPT/HCPCS: 36415; 73560; 80048; 85027; 86850; 86900; 86901; 94664

== ENCOUNTER 2018-08-08 08:57 | Outpatient (RCR) | payer MEDICARE ==
[~2018-08-08 08:57] MED LIST changes: +ASPI325T32 PO; +HYDR-3816 PO; +HYDR-3820 PO; +NFNEB10T PO; +SENN-20 PO
== END 2018-08-08 10:15 | disposition home or self-care (01) ==
PROVIDERS: ATTEND Orthopaedic Surgery
DX: Z47.1 Aftercare following joint replacement surgery (principal); Z96.651 Presence of right artificial knee joint

== ENCOUNTER → 2018-09-12 | Outpatient (CLI) | payer MEDICARE ==
--- NOTE | 2018-09-12 16:15 | Diagnostic Imaging Report ---
INDICATION: Routine screening. COMPARISON: 08/25/2017 and 08/20/2016. TECHNIQUE: 2D and 3D bilateral screening mammography was performed with CAD. FINDINGS: Scattered fibroglandular densities are identified bilaterally. Calcifications in the upper-outer right breast appear stable. No spiculated mass or malignant appearing microcalcifications are seen. Nodular densities in the posterior right breast are stable, best seen on the MLO view. The axillae are unremarkable. IMPRESSION: No mammographic features suspicious for malignancy are identified. ACR BI-RADS Category 2: Benign findings. Result letter will be mailed to the patient. Note: At least 10% of breast cancer is not imaged by mammography. Dictated by: Dictated on workstation # [id number]
== END ==
LOC: RAD 09:40
PROVIDERS: ATTEND Nurse Practitioner Family
DX: Z12.31 Encounter for screening mammogram for malignant neoplasm of breast (principal)
CPT/HCPCS: 77067

== ENCOUNTER → 2019-04-30 | Outpatient (CLI) | payer MEDICARE ==
[~2019-04-30] MED LIST changes: +CYAN-41 PO; -CYAN10006 PO
--- NOTE | 2019-04-30 14:25 | Diagnostic Imaging Report ---
PROCEDURE: US Thyroid. TECHNIQUE: Multiple real-time grayscale images were obtained of the thyroid in various projections. INDICATION: Abnormal thyroid laboratory values. COMPARISON: There are no prior thyroid ultrasound examinations available for comparison. FINDINGS: The thyroid gland was obscured by streak artifact on the CTA chest exam of 10/01/2016. The thyroid gland did seem to be prominent however. On this exam, the thyroid is enlarged with the right lobe measuring 5.9 x 2.5 x 2.7 cm and the left lobe estimated to be 5.8 x 2.9 x 2.4 cm. (Normal gland size 4-5 x 2 x 2 cm or less). There is a septated cystic nodule in the superior pole of the right lobe measuring 1.4 x 1.3 x 1.7 cm. There is also a complex predominantly solid nodule in the left lobe of the thyroid measuring 2.1 x 1.7 x 2.2 cm. There are a few other smaller subcentimeter nodules in both lobes. I suspect that the appearance of the thyroid gland is related to a multinodular goiter. However, the predominantly solid 2.1 cm nodule in the left lobe of the thyroid could be related to a malignant process. If a tissue diagnosis is desired, then ultrasound-guided biopsy of this nodule could be performed. A nuclear medicine thyroid scan could also better characterize this finding. If there is no intervention at this time and if the nuclear medicine study is not performed, then a short-term (3 months) followup thyroid ultrasound exam would be recommended. IMPRESSION: The thyroid gland is enlarged and there are several nodules in both lobes. This appearance is most likely due to a multinodular goiter. However, the 2 cm nodule in the left lobe of the thyroid is worrisome for malignancy. Recommendations as above. Dictated by: Dictated on workstation # [id number]
== END ==
LOC: RAD 13:04
PROVIDERS: ATTEND Nurse Practitioner Family
DX: E04.2 Nontoxic multinodular goiter (principal)
CPT/HCPCS: 76536

== ENCOUNTER → 2019-05-21 | Outpatient (CLI) | payer MEDICARE ==
[~2019-05-21] VITALS: Ht 154.9 cm; Wt 57.7 kg
[~2019-05-21] MED LIST changes: +LIDOCAINE 1% INJ 20 ML 20 ML VIAL INJ ONE
--- NOTE | 2019-06-07 07:42 | Diagnostic Imaging Report ---
INDICATION: Left thyroid mass. Patient presents for fine-needle aspiration and biopsy of the left thyroid mass. PROCEDURE: Patient was brought to the procedure room and placed on the table in the supine position. Ultrasound imaging of the left neck was performed to evaluate appropriate entry site. The left neck was then prepped and draped in usual sterile fashion. Small amount of 1% lidocaine was utilized for local anesthesia. Total of four passes were made into the solid nodule in the left lobe of the thyroid utilizing 25-gauge needles. Fine-needle aspiration technique was utilized. Next, total of two passes were made into the left lobe nodule with an 18-gauge Temno needle. Core biopsies were obtained. Needle was removed and hemostasis was obtained using manual compression. Patient tolerated the procedure well and left the department in stable condition. IMPRESSION: Successful ultrasound-guided fine-needle aspiration and core biopsy of the solid mass left lobe of the thyroid. Pathology results are currently pending. Dictated by: Dictated on workstation # [id number]
== END ==
LOC: RAD 12:09
PROVIDERS: ATTEND Otolaryngology Otolaryngology/Facial Plastic Surgery
DX: E04.1 Nontoxic single thyroid nodule (principal)
CPT/HCPCS: 88173; 88305

== ENCOUNTER → 2019-09-21 | Outpatient (CLI) | payer MEDICARE ==
[~2019-09-21] MED LIST changes: -LIDOCAINE 1% INJ 20 ML 20 ML VIAL INJ ONE
--- NOTE | 2019-09-21 13:26 | Diagnostic Imaging Report ---
EXAMINATION: Digital mammogram bilateral screening. The current study was also evaluated with a Computer Aided Detection (CAD) system. 3-D tomosynthesis was also performed and reviewed. INDICATION: Screening. This study was compared to the prior exams of 09/12/2018, 08/25/2017, 03/04/2017, and 08/20/2016. At this time, there are no current complaints. FINDINGS: The fibroglandular tissue in both breasts is heterogeneously dense. This does limit the sensitivity of this exam. Overall, there does not appear to have been any significant change when compared to the prior study. No primary or secondary sign of malignancy is noted. 3D tomographic images fail to show any sign of malignancy. Small benign-appearing nodular densities are again seen in the right breast. IMPRESSION: No radiographic evidence for malignancy. ACR BI-RADS Category 1: Negative. Result letter will be mailed to the patient. Note: At least 10% of breast cancer is not imaged by mammography. Dictated by: Dictated on workstation # [id number]
== END ==
LOC: RAD 09:06
PROVIDERS: ATTEND Nurse Practitioner Family
DX: Z12.31 Encounter for screening mammogram for malignant neoplasm of breast (principal)
CPT/HCPCS: 77067

== ENCOUNTER → 2020-10-31 | Outpatient (CLI) | payer MEDICARE ==
[~2020-10-31] MED LIST changes: +ACHD5005 PO; +ACHYD1T PO; -HYDR-3812 PO; -HYDR-3816 PO; -HYDR-3820 PO; -LISI-552 PO; +LISI20TA26 PO; -TELM1TAB27 PO; +TELM1TAB36 PO
--- NOTE | 2020-10-31 13:09 | Diagnostic Imaging Report ---
PROCEDURE: US Thyroid. TECHNIQUE: Multiple real-time grayscale images were obtained of the thyroid in various projections. INDICATION: Follow-up of thyroid nodule. Comparison with 04/30/2019. History of previous biopsy left lobe of the thyroid. FINDINGS: There has been significant increase in the size of a lobulated mass on the right with the large cystic component. The solid component is very heterogeneous and multilobulated. There is associated calcification as well. Overall dimension of the lobulated mass including cystic component is approximately 3.6 x 1.5 x 1.8 cm. This has increased in size since the previous exam. There is a focal dense calcification separately noted as well which is stable. The left lobe measures 6.8 x 2.6 x 2.7 cm. The solid nodule in the midportion of the left lobe is again demonstrated and is heterogeneous and relatively well-circumscribed. This has increased in size as well today measuring approximately 2.8 x 2 cm. There is some hypervascularity present. The isthmus appears normal. IMPRESSION: Multinodular appearance to the thyroid. There has been increase in size of nodules bilaterally especially on the right with a diffuse multinodular solid component now demonstrated. Would consider repeat ultrasound-guided biopsy of both right and left lobe. TI-RADS 5 Dictated by: Dictated on workstation # [id number]
== END ==
LOC: RAD 09:07
PROVIDERS: ATTEND Otolaryngology Otolaryngology/Facial Plastic Surgery
DX: E04.2 Nontoxic multinodular goiter (principal)
CPT/HCPCS: 76536

== ENCOUNTER → 2020-11-05 | Outpatient (CLI) | payer MEDICARE ==
[~2020-11-05] MED LIST changes: +LIDOCAINE 1% INJ 20 ML 20 ML VIAL INJ ONE
--- NOTE | 2020-11-05 11:54 | Diagnostic Imaging Report ---
INDICATION: Left lobe thyroid nodule. Patient presents for ultrasound guided fine-needle aspiration and Rotex biopsy. DETAILS OF THE PROCEDURE: The patient was brought to the procedure room and placed on the table in the supine position. The skin of the left neck was prepped and draped in the usual sterile fashion. A small amount of 1% lidocaine was utilized for local anesthesia. A total of four passes was made into the dominant solid mass in the left lobe of the thyroid utilizing 25-gauge needles and fine-needle aspiration technique. A single pass was made with a Rotex needle and a Rotex biopsy was obtained. The needle was removed and hemostasis was obtained using manual compression. The patient tolerated the procedure well. IMPRESSION: Successful left lobe thyroid nodule fine-needle aspiration and Rotex biopsy using sonographic guidance. Dictated by: Dictated on workstation # [id number]
--- NOTE | 2020-11-05 12:30 | Diagnostic Imaging Report ---
INDICATION: Right thyroid nodule. Patient presents for ultrasound guided fine needle aspiration and biopsy. DETAILS OF THE PROCEDURE: The patient was brought to the procedure room and placed on the table in the supine position. Ultrasound imaging of the right neck was performed to evaluate for an appropriate entry site. The right neck was prepped and draped in the usual sterile fashion. A small amount of 1% lidocaine was utilized for local anesthesia. A total of 4 passes was made into the dominant solid and cystic mass in the right lobe of the thyroid utilizing 25-gauge needles and fine needle aspiration technique. A single pass was made with a Rotex needle and a Rotex biopsy was obtained. The needle was withdrawn and hemostasis was obtained. The patient tolerated the procedure well and left the Department in stable condition. IMPRESSION: Successful ultrasound guided fine needle aspiration and Rotex biopsy of a right lobe thyroid nodule. Dictated by: Dictated on workstation # [id number]
== END ==
LOC: RAD 09:05
PROVIDERS: ATTEND Otolaryngology Otolaryngology/Facial Plastic Surgery
DX: E04.2 Nontoxic multinodular goiter (principal)
CPT/HCPCS: 10005; 10006

== ENCOUNTER → 2022-04-27 | Outpatient (CLI) | payer MEDICARE ==
[~2022-04-27] VITALS: Ht 154.9 cm; Wt 54.0 kg
[~2022-04-27] MED LIST changes: +ATOR40TA70 PO; +CEFUROXIME INJECTION 1,500 MG in NS (IVPB) 50 ML IV ONE; -LIDOCAINE 1% INJ 20 ML 20 ML VIAL INJ ONE; +STATIN
[2022-04-27 12:36] LABS: BASOPHILS % (AUTO) 1 % (0-10); BILIRUBIN,URINE NEGATIVE (NEGATIVE); CLARITY,URINE CLEAR; COLOR,URINE YELLOW; EOSINOPHILS % (AUTO) 1 % (0-10); GLUCOSE, URINE (UA) NEGATIVE (NEGATIVE); HEMATOCRIT 40 % (35-52); HEMOGLOBIN 13.5 g/dL (11.5-16.0); KETONES,URINE NEGATIVE (NEGATIVE); LEUKOCYTE ESTERASE ,URINE TRACE (NEGATIVE); LYMPHOCYTES # (AUTO) 1.5 10^3/uL (1.0-4.0); LYMPHOCYTES % (AUTO) 33 % (12-44); MEAN CORPUSCULAR HEMOGLOBIN 34 pg (25-34); MEAN CORPUSCULAR HGB CONC 34 g/dL (32-36); MEAN CORPUSCULAR VOLUME 100 fL (80-99); MEAN PLATELET VOLUME 9.6 fL (9.0-12.2); MONOCYTES # (AUTO) 0.8 10^3/uL (0.0-1.0); MONOCYTES % (AUTO) 17 % (0-12); NEUTROPHILS # (AUTO) 2.2 10^3/uL (1.8-7.8); NEUTROPHILS % (AUTO) 48 % (42-75); NITRITE,URINE NEGATIVE (NEGATIVE); PH,URINE 6.5 (5-9); PLATELET COUNT 272 10^3/uL (130-400); PROTEIN,URINE NEGATIVE (NEGATIVE); WHITE BLOOD COUNT 4.6 10^3/uL (4.3-11.0)
[2022-04-27 12:57] LABS: ALBUMIN 3.8 GM/DL (3.2-4.5); BILIRUBIN,TOTAL 0.5 MG/DL (0.1-1.0); CALCIUM 9.1 MG/DL (8.5-10.1); CREATININE SERUM 0.75 MG/DL (0.60-1.30); POTASSIUM 4.2 MMOL/L (3.6-5.0); TOTAL PROTEIN 6.7 GM/DL (6.4-8.2)
[2022-04-27 14:17] LABS: BACTERIA,URINE NEGATIVE /HPF; SQUAMOUS EPITHELIAL CELL,UR RARE /HPF; WBC,URINE RARE /HPF
--- NOTE | 2022-04-27 17:43 | Diagnostic Imaging Report ---
EXAMINATION: Chest 2 view HISTORY: Preoperative exam COMPARISON: 05/05/2018 FINDINGS: Lungs are hyperinflated. No edema or pneumonia. No pleural effusion or pneumothorax. Heart size is normal. IMPRESSION: 1. Hyperinflated but clear lungs. Dictated by: Dictated on workstation # [id number]
== END ==
LOC: PREOP 09:51
PROVIDERS: ATTEND Orthopaedic Surgery
DX: Z01.818 Encounter for other preprocedural examination (principal); M17.11 Unilateral primary osteoarthritis, right knee
CPT/HCPCS: 36415; 71046; 80053; 81000; 82308; 85025; 85610; 86850; 86900; 86901; 87081

== ENCOUNTER 2022-05-05 07:46 | Inpatient (IN) | payer MEDICARE ==
--- NOTE | 2022-04-27 12:45 | Physical Therapy Pre-Op Eval ---
PT Pre-Surgical Assessment Type of Surgery Type of Surgery: right TKR Prior Level of Function Current Living Status: Children Locomotion (Upon Admit): Independent PLOF DME: Front Wheeled Walker Subjective Home: Single Level Current Living Status: Children Entry Into Home: Stairs With Railing Steps Into Home: 3 Steps Accessories: Railing Present Motor Control Motor Control: Motor Control WNL ROM ROM: WFL, except focal deficit Strength Strength: WFL Transfers Transfers (B, C, W/C) (FIM): 6 Gait Gait (FIM): 6 Gait Distance (FIM): 6 Distance: >150' Gait Assistive Device: None Treatment Rendered Treatment: Patient instructed in assistive device, supported ambulation. Patient instructed in and given written program of ROM and strengthening exercises to be preformed post-op. Patient instructed in movement precautions where applicable. Patient demonstrates understandings of post-operative therapy protocol including gait pattern and exercise program. Pre-operative instruction completed; await physical therapy orders after surgery. Treatment Goal Met: Yes Assessment Goals Acheived: I Ambulation w/ FWW, Understands P-op Precaut, I Post-op Exercises Charges/GCodes Time In: 1225 Time Out: 1235 Total Billed Treatment Time: 10 Total Billed Treatment 1 visit Educ 1:1 BRADLEY WEINSTEIN PT Apr 27, 2022 12:45
--- NOTE | 2022-04-28 08:07 | HISTORY AND PHYSICAL ---
DATE OF SERVICE: ADMISSION HISTORY AND PHYSICAL DATE OF ADMISSION: 05/05/2022. This will be for inpatient admission on 05/05/2022 for right total knee arthroplasty. The patient will require regular inpatient admission due to comorbidities, need for pain management, need for physical therapy, need for IV morphine. Date of service surgery and admission will be 05/05/2022. HISTORY OF PRESENT ILLNESS: The patient is an 81-year-old female with progressively worsening right knee pain. She has undergone treatment with injections without relief. She previously underwent left total knee arthroplasty. She is having pain that has been progressive to the point, where it is interfering with her activities of daily living. Radiographs reveal severe medial and patellofemoral arthrosis. Due to functional impairment and failure to improve with conservative measures, the patient has elected to proceed with surgical intervention. REVIEW OF SYSTEMS: No chest pain, no shortness of breath, no dysuria. PAST MEDICAL HISTORY: Hypertension, hypercholesterolemia. PAST SURGICAL HISTORY: Left total knee arthroplasty. FAMILY HISTORY: Significant for cancer. PRIMARY CARE PROVIDER: Dr. Saavedra. MEDICATIONS: Lisinopril, Lipitor, and atorvastatin. ALLERGIES: SULFA. SOCIAL HISTORY: The patient denies alcohol and tobacco use. PHYSICAL EXAMINATION: GENERAL: The patient is well-developed, well-nourished, and in no acute distress. HEENT: Normocephalic and atraumatic. Pupils are equal, round and reactive to light. Oropharynx is clear. NECK: Supple with no lymphadenopathy. LUNGS: Clear to auscultation bilaterally. HEART: Regular rate and rhythm. ABDOMEN: Soft, nontender, and nondistended. EXTREMITIES: The right lower extremity demonstrates varus alignment. She is tender along the medial femoral epicondyle. She has pain with patellar loading and with Joshua's medially. She ambulates with an antalgic gait. She is ligamentously stable in all planes. Range of motion is 0/2/125. IMPRESSION: Severe right knee osteoarthritis, unresponsive to conservative measures. PLAN: Right total knee arthroplasty. The risks, benefits, options, ramifications, and recovery were discussed at length with the patient. She understands and wishes to proceed. Job ID: [id number] DocumentID: [id number] Dictated Date: 04/20/2022 10:36:57 Studio Designer Date: 04/20/2022 11:06:28 Dictated By: CRESCENCIO FELDMAN MD
[2022-05-05] VITALS (11 sets, daily range): BP systolic 104–187; BP diastolic 51–107
[~2022-05-05] VITALS: Ht 154.9 cm; Wt 55.3 kg
[~2022-05-05 07:46] MED LIST changes: -CEFUROXIME INJECTION 1,500 MG in NS (IVPB) 50 ML IV ONE; +ONDANSETRON 4 MG/2 ML (SDV) Z0FRAN IVP PRN; +diphenhydrAMINE 50 MG/ML INJ (BENADRYL) IVP PRN; +morphine PCA 100 MG/100 ML BAG IV PRN
[2022-05-05] MEDS ORDERED: INTRA-ARTICULAR IU ONE ×5 (08:00)
[2022-05-05] MEDS ORDERED: LACTATED RINGERS 1,000 ML IV PRN (08:15)
[2022-05-05] MEDS ORDERED: CEFUROXIME INJECTION 1,500 MG in NS (IVPB) 50 ML IV ONE (08:15)
[2022-05-05] MEDS ORDERED: SEVOFLURANE (ULTANE) 15 ML INHAL SOLN ONE ×2 (08:16→10:30)
[2022-05-05] MEDS ORDERED: MIDAZOLAM 2 MG/2 ML (VERSED) VIAL ONE (08:16)
[2022-05-05] MEDS ORDERED: ROPIVACAINE 5MG/ML 30ML VIAL ONE (08:16)
[2022-05-05] MEDS ORDERED: TRANEXAMIC ACID 100 MG/ML 10 ML INJECTION ONE (08:16)
[2022-05-05] MEDS ORDERED: ONDANSETRON 4 MG/2 ML (SDV) Z0FRAN ONE (08:16)
[2022-05-05] MEDS ORDERED: LIDOCAINE PF 2% 5 ML (XYLOCAINE) VIAL ONE (08:16)
[2022-05-05] MEDS ORDERED: proPOfol 200 MG/20 ML (DIPRIVAN) VIAL IV ONE (08:16)
[2022-05-05] MEDS ORDERED: fentaNYL INJ 100 MCG/2 ML AMP ONE (08:16)
[2022-05-05] MEDS ORDERED: CEFUROXIME 1.5 GM/15 ML (ZINACEF) VIAL ONE (08:21)
[2022-05-05] MEDS ORDERED: NS (IVPB) 50 ML ONE (08:22)
--- NOTE | 2022-05-05 09:09 | Progress Note-Pre Operative ---
Pre-Operative Progress Note Date of Available H&P: Apr 26, 2022 Date H&P Reviewed: May 05, 2022 Time H&P Reviewed: 07:11 Changes from last HP none Pre-Operative Diagnosis: right knee primary osteoarthritis CRESCENCIO FELDMAN MD May 05, 2022 09:09
--- NOTE | 2022-05-05 09:11 | Progress Note-Post Operative ---
Post-Operative Progess Note Surgeon (s)/Street Car Inspector (s) Surgeon CRESCENCIO FELDMAN MD Street Car Inspector: Shawn Zazueta Pre-Operative Diagnosis right knee primary osteoarthritis Post-Operative Diagnosis right knee primary osteoarthritis Procedure & Operative Findings Date of Procedure 05/05/22 Procedure Performed/Findings right total knee arthroplasty Anesthesia Type GETA Estimated Blood Loss Estimated blood loss (mL): minimal Specimens/Packing Specimens Removed none Packing: none CRESCENCIO FELDMAN MD May 05, 2022 09:11
--- NOTE | 2022-05-05 09:13 | D/C HH Face to Face Order ---
D/C Face to Face Orders Reconcile Patient Problems Problems Reviewed?: Yes Instructions for Patient Via [employer], Patient Instructions/FollowUp: three weeks Physician to follow Patient: three weeks Discharge Diet for Home: Regular Diet Patient Data-Allergies,Ht & Wt Patient Allergies: Coded Allergies: Sulfa (Sulfonamide Antibiotics) (Verified Allergy, Unknown, 06/08/16) Height (Feet): 5 Height (Inches): 0.00 Weight (Pounds): 122 Weight (Ounces): 9.0 Home Health Need/Face to Face Date of Face to Face: May 05, 2022 Clinical Findings: Muscle weakness, Pain with ambulation, Unsteady gait I have seen Pt [id number]: Yes Discharged To: Home Diagnosis/Conditions: right total knee arthroplasty Patient is Homebound due to: Muscle weakness, Pain w/ambulation Homebound Status Due to the above stated illness, injury or surgical procedure (medical condition or diagnosis) and associated clinical findings, the patient is homebo und because of his/her inability to leave home except with aid of a supportive device and/or person AND leaving the home requires a considerable and taxing effort or is medically contraindicated. Pt req the following assistanc: Walker Home Health Nursing Orders Home Health Services Order: Physical Therapy-Evaluate & Treat DC right knee felicia and apply steri strips 05/19/22 Therapy Orders Therapy Orders: Physical Therapy, PT to assess for OT Therapy Specific Orders: Eval assistive deivces, Teach enviro modifications/safety, Gait training, Increase strength/endurance, Provider maintenance therapy, Restore ROM Certify Stmt I certify that this patient is under my care and that I, a nurse practitioner or a physician; a medical administrative assistant working with me, had a face to face encounter that - meets the physician face to face encounter requirements with this patient as dated. CRESCENCIO FELDMAN MD May 05, 2022 09:13
[2022-05-05] MEDS ORDERED: LABETALOL HCL 20 MG/4 ML VIAL ONE (09:37)
--- NOTE | 2022-05-05 10:37 | Anesthesia-General Post-Op ---
General Patient Condition Mental Status/LOC: Same as Preop Cardiovascular: Satisfactory Nausea/Vomiting: Absent Respiratory: Satisfactory Pain: Controlled Complications: Absent Post Op Complications Complications None Follow Up Care/Instructions Patient Instructions None needed. Anesthesia/Patient Condition Patient Condition Patient is doing well, no complaints, stable vital signs, no apparent adverse anesthesia problems. No complications reported per nursing. DALJIT BOOTH CRNA May 05, 2022 10:37
[2022-05-05] MEDS ORDERED: ONDANSETRON 4 MG/2 ML (SDV) Z0FRAN IVP PRN (10:45)
[2022-05-05] MEDS ORDERED: morphine INJ 10 MG/ML 1ML (SYR OR VIAL) IVP ONE (10:45)
[2022-05-05] MEDS ORDERED: PROMETHAZINE INJ 25 MG/ML (PHENERGAN) AMP IVP ONE (10:45)
[2022-05-05] MEDS ORDERED: MEPERIDINE (DEMEROL) INJ 50 MG/ML IVP ONE (10:45)
--- NOTE | 2022-05-05 11:20 | Diagnostic Imaging Report ---
Indication: Right knee arthroplasty AP and lateral views of right knee are obtained. There has been total right knee arthroplasty with good alignment of prosthetic components. Gas and fluid within the knee joint and adjacent tissues. There is lucency within the distal femoral shaft which may be related to previous surgery as well. IMPRESSION: Expected findings related to recent total right knee arthroplasty. Correlation with preoperative film would be useful for assessment of distal femoral medullary lucency. Dictated by: Dictated on workstation # [id number]
[2022-05-05] MEDS: oxyCODONE/APAP 5/325MG (PERCOCET 5) TABLET PO PRN (12:05)
[2022-05-05] MEDS: NS IV 1000 ML 1,000 ML IV SCH ×2 (12:06→20:11)
--- NOTE | 2022-05-05 12:55 | Progress Note ---
Standard Progress Note Progress Notes/Assess & Plan Date Seen by a Provider: May 05, 2022 Time Seen by a Provider: 11:30 Progress/Assessment & Plan post op check no complaints radiographs--HW well positioned without fracture RLE--2 plus DP pulse with brisk cap refill intact DF and PF of toes and ankle with intact sensation throughout s/p RTKA mobilize as able CRESCENCIO FELDMAN MD May 05, 2022 12:55
--- NOTE | 2022-05-05 14:38 | Physical Therapy Evaluation ---
PT Evaluation-General Medical Diagnosis Admission Date May 05, 2022 at 07:46 Medical Diagnosis: right TKA Onset Date: May 05, 2022 Therapy Diagnosis Therapy Diagnosis: impaired mobility, ROM Height/Weight Height (Feet): 5 Height (Inches): 0.00 Weight (Pounds): 122 Weight (Ounces): 9.0 Precautions Precautions/Isolations: Fall Prevention, Standard Precautions Weight Bear Status Right Lower Extremity: Right Weight Bearing/Tolerated Referral Physician: Marbin Reason for Referral: Evaluation/Treatment Medical History Pertinent Medical History: GERD, HTN History of Falls (past yr): Unknown Prior Surgery (last 100 days): Unknown Additional Medical History PAST MEDICAL HISTORY: Hypertension, hypercholesterolemia. PAST SURGICAL HISTORY: Left total knee arthroplasty. Reviewed History: Yes Social History Home: Single Level Current Living Status: Spouse Entry Into Home: Stairs With Railing PT Steps Into Home: 3 Prior Prior Level of Function SCALE: Activities may be completed with or without assistive devices. 6-Grmgpqvycl-zpnasgu completes the activity by him/herself with no assistance from a helper. 5-Set-up or Clean-up Assistance-helper sets up or cleans up; patient completes activity. [place] assists only prior to or following the activity. 4-Supervision or Touching Assistance-helper provides verbal cues and/or touching/steadying and/or contact guard assistance as patient completes activity. Assistance may be provided throughout the activity or intermittently. 3-Partial/Moderate Assistance-helper does LESS THAN HALF the effort. [place] li fts, holds or supports trunk or limbs, but provides less than half the effort. 2-Substantial/Maximal Assistance-helper does MORE THAN HALF the effort. [place] lifts or holds trunk or limbs and provides more than half the effort. 8-Uwlzryxhp-ljtpqp does ALL the effort. Patient does none of the effort to complete the activity. Or, the assistance of 2 or more helpers is required for the patient to complete the activity. If activity was not attempted, code reason: 7-Patient Refused. 9-Not Applicable-not attempted and the patient did not perform the activity before the current illness, exacerbation or injury. 10-Not Attempted due to Environmental Limitations-(lack of equipment, weather restraints, etc.). 88-Not Attempted due to Medical Conditions or Safety Concerns. Bed Mobility: 6 Transfers (B,C,W/C): 6 Gait: 6 Stairs: 6 Indoor Mobility (Ambulation): Independent Stairs: Independent PT Evaluation-Current Subjective Patient in bed pre tx, agrees to PT, has 7/10 pain in right knee. Pt/Family Goals to be independent at home Objective Patient Orientation: Person, Confused Attachments: SCD's, IV ROM/Strength ROM Lower Extremities right knee extension +5 degrees, extension 60 degrees Sensory Hearing: Functional Sensation Right Lower Extremit: Intact Sensation Left Lower Extremity: Intact Transfers Roll Left to Right (QC): 3 Sit to Lying (QC): 3 Lying to Sitting/Side of Bed(Q: 3 Sit to Stand (QC): 3 Chair/Nev-yi-Fnxke Xfer(QC): 3 Patient sat to the side of the bed with min assist stood with min assist, she tried to take a step but her right knee ada. Patient starts urinating uncontrollably and sits back down. A commode is obtained for her and she is able to stand and turn and sit on it with mod assist, same mod assist going back to bed, min assist to lay back down. When she is on the commode her socks are changed, nurse in room post tx to change her logan hose. Balance Sitting Static: Fair Sitting Dynamic: Fair Standing Static: Poor Standing Dynamic: Poor Treatment RLE total knee protocol x10 (AP, QS, HS, SAQ, SLR) Assessment/Needs Patient in bed post tx with nurse call, phone, tray, nurse in room. Patient is confused and drowsy, slow to process, cannot bear weight on her right knee yet. Rehab Potential: Fair PT Snf Goals Home Demonstrator Goals PT Home Demonstrator Goals Time Frame: May 12, 2022 Roll Left & Right (QC): 6 Sit to Lying (QC): 6 Lying-Sitting on Side/Bed(QC): 6 Sit to Stand (QC): 6 Chair/Xcj-sd-Rlqpv Xfer(QC): 6 Walk 10 feet (QC): 6 Walk 50ft with 2 Turns (QC): 6 Walk 150 ft (QC): 6 1 Step (curb) (QC): 4 4 Steps (QC): 4 PT Plan Problem List Problem List: Activity Tolerance, Functional Strength, Safety, Balance, Gait, Transfer, Bed Mobility, ROM Treatment/Plan Treatment Plan: Continue Plan of Care Treatment Plan: Bed Mobility, Education, Functional Activity Kelly, Functional Strength, Gait, Safety, Therapeutic Exercise, Transfers Treatment Duration: May 12, 2022 Frequency: 11 times per week Estimated Hrs Per Day: .25 hour per day Patient and/or Family Agrees t: Yes Safety Risks/Education Patient Education: Transfer Techniques, Correct Positioning, Safety Issues Teaching Recipient: Patient Teaching Methods: Demonstration, Discussion Response to Teaching: Reinforcement Needed Discharge Recommendations Plan Patient will perform bed mobility and transfer training, balance and endurance training, functional strengthening, stair training, gait training, and education, to improve functional mobility and independence at home. Therapy Discharge Recommendati: Home & Family, Post Acute PT Time/GCodes Time In: 1347 Time Out: 1412 Total Billed Treatment Time: 25 Total Billed Treatment 1 visit EVL 15' FA 10' MAICOL CAMARGO PT May 05, 2022 14:38
[2022-05-05] MEDS ORDERED: FLUO20CA48 PO (15:25)
[2022-05-05] MEDS ORDERED: LISI10TA25 PO (15:25)
[2022-05-05] MEDS ORDERED: ONDA-105 PO (15:25)
[2022-05-05] MEDS: CEFUROXIME INJECTION 750 MG in NS (IVPB) 50 ML IV SCH (16:58)
[2022-05-05] MEDS: SENNA W/DOCUSATE (SENOKOT S) TABLET PO SCH (20:11)
--- NOTE | 2022-05-05 21:06 | OPERATIVE REPORT ---
DATE OF SERVICE: 05/05/2022 PREOPERATIVE DIAGNOSIS: Right knee primary osteoarthritis. POSTOPERATIVE DIAGNOSIS: Right knee primary osteoarthritis. PROCEDURE: Right total knee arthroplasty. SURGEON: Ousmane Feldman MD DIAL MARKER: Shawn Zazueta, who assisted throughout the procedure and closed the incision. ANESTHESIA: General endotracheal by Mick Richard CRNA. TOURNIQUET TIME: Approximately 52 minutes at 300 mmHg. ESTIMATED BLOOD LOSS: Minimal. DRAINS: None. COMPLICATIONS: None. POSTOPERATIVE PLAN: Routine total knee arthroplasty protocol. MATERIALS: Microport cemented size 4 femur, cemented size 4 tibia with 10 mm insert and cemented size 29 patellar button. STATEMENT OF MEDICAL NECESSITY: The patient is an 81-year-old female with longstanding progressive right knee pain. Radiographs revealed severe medial and patellofemoral arthrosis. She has undergone treatment with injections, anti-inflammatories and rest without relief. Due to functional impairment and failure to improve with conservative measures, the patient elected to proceed with surgical intervention. DESCRIPTION OF PROCEDURE: After risks and benefits of the procedure were discussed and questions were answered, an informed consent was signed and placed on chart, the operative site was confirmed in the preoperative holding area initialed by the surgeon. The patient was then transferred to the operating room and after adequate levels of general endotracheal anesthetic were obtained, a timeout was called, confirming the operative site. The right lower extremity was prepped and draped in the usual sterile fashion. With leg elevated and the knee flexed, tourniquet was inflated to 300 mmHg. Standard anterior approach was utilized. Hemostasis was obtained with cautery. Medial parapatellar arthrotomy was performed leaving 1 cm cuff on the patella for later reattachment. A portion of the fat pad was resected. The ACL was resected. Subperiosteal release was performed in the proximal medial tibia being careful to stay on the bony surface. The intramedullary guide was passed into the femur. The distal cutting block was placed. Distal cut was made, the femur sized to a size 4. The forefoot cutting block was placed parallel to the epicondylar axis and cuts were made from posterior to anterior. Subperiosteal release was then carefully performed on the posterior distal femur, being careful to stay on the bony surface. The intramedullary guide was then passed into the tibia. The drop corey transected the intermalleolar axis. The cut was made. The four baseplate was placed. The drop corey again transected the intermalleolar axis and this was prepared with the drill and keel punch. The trials were inserted. The trochlear cut was made on the femur. The patella was then prepared by resecting 10 mm off the undersurface. The peg guide was placed and peg holes were drilled. The trials were inserted, 10 mm insert provided full extension and 120 degrees of flexion with gravity. No varus or valgus laxity. Negative anterior and posterior drawer and the patella tracked well. The trials were removed. The joint was irrigated with pulse lavage. The periarticular block was placed in the posterior capsule, medial and lateral retinaculum, extensor mechanism, and subcutaneous tissues. The bone ends were irrigated and dried. The tibial baseplate was cemented into position. Excessive cement was removed. Superior surface was irrigated and dried and the polyethylene insert was placed. Distal femur was irrigated and dried and the femoral prosthesis was cemented into position. Excessive cement was removed. The knee was brought out into full extension and held until the cement had cured. The undersurface of patella was irrigated and dried and the patella cemented into position. Once the cement had cured, the knee was taken through range of motion. Full extension was easily obtained, 120 degrees of flexion with gravity was easily obtained. The patella tracked well. There was no anterior/posterior or medial/lateral laxity in flexion or extension. The joint was further irrigated with pulse lavage and the arthrotomy was closed with #2 Tevdek in cnxgnn-ts-atxld interrupted fashion. The knee was flexed. The repair was stable. The subcutaneous tissues were irrigated using a total of 6 liters throughout the procedure. A 0 Vicryl was used to deep subcutaneous layer, 2-0 Vicryl for the superficial subcutaneous layer, felicia used on the skin. A soft dressing was applied, and the patient was transferred to the recovery room awake and in stable condition. Job ID: [id number] DocumentID: [id number] Dictated Date: 05/05/2022 10:36:21 Testing Specialist Date: 05/05/2022 21:06:05 Dictated By: OUSMANE FELDMAN MD
[2022-05-06] MEDS: CEFUROXIME INJECTION 750 MG in NS (IVPB) 50 ML IV SCH (00:31)
[2022-05-06] MEDS: NS IV 1000 ML 1,000 ML IV SCH ×2 (02:45→14:51)
[2022-05-06 03:23] VITALS: BP 123/80
[2022-05-06 05:41] LABS: HEMOGLOBIN 11.7 g/dL (11.5-16.0)
[2022-05-06 07:45] VITALS: BP 133/80
--- NOTE | 2022-05-06 08:02 | Progress Note ---
Standard Progress Note Progress Notes/Assess & Plan Date Seen by a Provider: May 06, 2022 Time Seen by a Provider: 08:00 Progress/Assessment & Plan post op check no complaints radiographs--HW well positioned without fracture RLE--2 plus DP pulse with brisk cap refill intact DF and PF of toes and ankle with intact sensation throughout s/p RTKA mobilize as able Final Diagnosis no complaints Laboratory Tests Test 05/06/22 05:14 Range/Units Hemoglobin 11.7 11.5-16.0 g/dL Hematocrit 37 35-52 % Vital Signs Date Time Temp Pulse Resp B/P (MAP) Pulse Ox O2 Delivery O2 Flow Rate FiO2 05/06/22 07:45 36.6 73 18 133/80 (97) 96 Room Air 05/06/22 07:00 18 05/06/22 03:23 36.6 86 18 123/80 (94) 95 Room Air 05/06/22 00:00 18 05/05/22 23:14 36.8 85 18 113/72 (86) 92 Room Air 05/05/22 20:00 Room Air 05/05/22 19:56 36.3 91 18 117/69 (85) 92 Room Air 05/05/22 16:09 90 Room Air 2.00 05/05/22 15:39 36.0 88 16 104/51 (68) 90 Room Air 05/05/22 12:30 37.4 84 19 115/70 (85) 91 Room Air 05/05/22 12:16 16 05/05/22 11:30 Room Air 05/05/22 11:20 37.4 12 153/92 (112) 94 Room Air 05/05/22 11:15 OxyMask 3.00 05/05/22 11:10 16 152/93 (112) 98 OxyMask 3.00 05/05/22 11:00 17 154/99 (117) 97 OxyMask 8.00 05/05/22 11:00 OxyMask 8.00 05/05/22 10:50 18 145/92 (109) 97 OxyMask 8.00 05/05/22 10:45 OxyMask 10 05/05/22 10:40 16 176/104 (128) 96 OxyMask 10 05/05/22 10:32 OxyMask 10 05/05/22 10:32 37.7 16 157/98 (117) 97 OxyMask 10 05/05/22 08:05 98 Room Air 05/05/22 08:05 36.9 81 20 187/107 (133) 98 Room Air I & O 05/06/22 07:00 Intake Total 920 ml Output Total 320 ml Balance 600 ml RLE--dressing intact no calf tenderness flexion to 90 s/p RTKA PT/OT DC home tomorrow vs CRESCENCIO KOCH MD May 06, 2022 08:02
--- NOTE | 2022-05-06 08:28 | Consultation ---
History of Present Illness History of Present Illness Patient Consulted On(az/time) 05/06/22 08:25 Date Seen by Provider: May 06, 2022 Time Seen by Provider: 08:15 Reason for Visit: RIGHT KNEE OA WITH PLANNED REPLACEMENT History of Present Illness Pt is an 81 y/o female who is known to me from clinic. She presented to the hospital on 05/05/22 for planned Right total knee arthroplasty with Dr. Bellamy. Allergies and Home Medications Allergies Coded Allergies: Sulfa (Sulfonamide Antibiotics) (Verified Allergy, Unknown, 06/08/16) Patient Home Medication List Home Medication List Reviewed: Yes Atorvastatin Calcium (Atorvastatin Calcium) 40 Mg Tablet, 40 MG PO DAILY, (Reported) Entered as Reported by: CHARLENE KNOWLES on 04/27/22 1307 Last Action: Continued Fluoxetine HCl (Fluoxetine HCl) 20 Mg Capsule, 20 MG PO DAILY, (Reported) Entered as Reported by: CARRIE SANDOVAL on 05/05/221524 Last Action: Continued Lisinopril (Lisinopril) 10 Mg Tablet, 10 MG PO DAILY, (Reported) Entered as Reported by: CARRIE SANDOVAL on 05/05/221524 Last Action: Continued Ondansetron HCl (Ondansetron HCl) 4 Mg Tablet, 4 MG PO Q8H PRN for NAUSEA/VOMITING-1ST LINE, (Reported) Entered as Reported by: CARRIE SANDOVAL on 05/05/221524 Last Action: Held Discontinued Medications Fluoxetine HCl (Prozac) 20 Mg Capsule, MG PO UD, (Reported) Discontinued Reason: Duplicate Order Entered as Reported by: CHARLENE KNOWLES on 04/27/22 1213 Last Action: Discontinued Lisinopril (Lisinopril) 20 Mg Tablet, 10 MG PO DAILY, (Reported) Discontinued Reason: Duplicate Order Entered as Reported by: CHARLENE KNOWLES on 04/27/22 121 Last Action: Discontinued Past Zbojtyw-Sdjwqo-Tcqdqu Hx Patient Social History Tobacco Use?: Yes Smoking Status: Current Someday Smoker Smokeless Tobacco Frequency: Never a User Use of E-Cig and/or Vaping dev: No Substance use?: No Alcohol Use?: No Pt feels they are or have been: No Immunizations Up To Date Date of Influenza Vaccine: Apr 29, 2022 First/Initial COVID19 Vaccinat: 2020 Second COVID19 Vaccination Az: 2020 Tetanus Booster (TDap): Unknown Hepatitis A: No Hepatitis B: No Date of Pneumonia Vaccine: Jun 07, 2016 Seasonal Allergies Seasonal Allergies: Yes (MILD) Current Status status: No status: No Advance Directives: No Communicates: Verbally Primary Language: Nepali Is interpretation needed?: No Past Medical History Surgeries: Hysterectomy, Orthopedic Currently Using CPAP: No Currently Using BIPAP: No High Cholesterol, Hypertension Sexually Transmitted Disease: No HIV/AIDS: No UTI-Chronic Gastroesophageal Reflux, Diverticulosis Arthritis, Chronic Back Pain Cataract Loss of Vision: Bilateral Hearing Impairment: Denies Skin, Breast Did You Recieve Any Treatments: Yes What Type of Treatment Did You: Surgical Intervention Depression Blood Disorders: No Adverse Reaction/Blood Tranf: No (N/A) Family Medical History Cardiovascular disease G8 BROTHER Colon cancer G8 SISTER FH: breast cancer 19 MOTHER Hypertension G8 BROTHER Heart Disease, Cancer, Hypertension Physical Exam Vital Signs Vital Signs - First Documented Capillary Refill : Less Than 3 Seconds Height, Weight, BMI Height: 5'0.00" Weight: 122lbs. 9.0oz. [id number]; 23.04 BMI Method:Stated Assessment/Plan Assessment/Plan Assessment and Plan Right total Knee arthroplasty Chronic Hypertension Hyperlipidemia Chronic Depression GREER CASTRO MD May 06, 2022 08:28
[2022-05-06] MEDS: ASPIRIN E.C. 81 MG (ECOTRIN) TAB PO SCH (08:42)
[2022-05-06] MEDS: ENOXAPARIN INJECTION 30 MG/0.3 ML SYR SC SCH ×2 (08:42→19:38)
[2022-05-06] MEDS: FLUoxetine HCL 20 MG (PROzac) CAP PO SCH (08:42)
[2022-05-06] MEDS: lisINopril 10 MG (PRINIVIL) TABLET PO SCH (08:42)
[2022-05-06] MEDS: SENNA W/DOCUSATE (SENOKOT S) TABLET PO SCH ×2 (08:42→19:39)
[2022-05-06] MEDS: oxyCODONE/APAP 5/325MG (PERCOCET 5) TABLET PO PRN ×5 (08:48→21:45)
--- NOTE | 2022-05-06 10:02 | Occupational Therapy Eval ---
OT Evaluation-General/PLF Medical Diagnosis Admission Date May 05, 2022 at 07:46 Medical Diagnosis: right TKA Onset Date: May 05, 2022 Therapy Diagnosis Therapy Diagnosis: n/a Height/Weight Height (Feet): 5 Height (Inches): 0.00 Weight (Pounds): 122 Weight (Ounces): 9.0 Precautions Precautions/Isolations: Fall Prevention, Standard Precautions Referral Physician: Marbin Referral Reason: Evaluation/Treatment Medical History Pertinent Medical History: GERD, HTN Additional Medical History L TKA Current History s/p elective R TKA 05/05/2022 Social History Home: Single Level Current Living Status: Spouse Entry Into Home: Stairs With Railing Steps Into Home: 3 ADL-Prior Level of Function SCALE: Activities may be completed with or without assistive devices. 6-Gfgydcppym-irtqyyj completes the activity by him/herself with no assistance from a helper. 5-Set-up or Clean-up Assistance-helper sets up or cleans up; patient completes activity. [place] assists only prior to or following the activity. 4-Supervision or Touching Assistance-helper provides verbal cues and/or touching/steadying and/or contact guard assistance as patient completes activity. Assistance may be provided throughout the activity or intermittently. 3-Partial/Moderate Assistance-helper does LESS THAN HALF the effort. [place] lifts, holds or supports trunk or limbs, but provides less than half the effort. 2-Substantial/Maximal Assistance-helper does MORE THAN HALF the effort. [place] lifts or holds trunk or limbs and provides more than half the effort. 8-Swewssnak-zxmten does ALL the effort. Patient does none of the effort to complete the activity. Or, the assistance of 2 or more helpers is required for the patient to complete the activity. If activity was not attempted, code reason: 7-Patient Refused. 9-Not Applicable-not attempted and the patient did not perform the activity before the current illness, exacerbation or injury. 10-Not Attempted due to Environmental Limitations-(lack of equipment, weather restraints, etc.). 88-Not Attempted due to Medical Conditions or Safety Concerns. ADL PLOF Comments Pt reports IND with ADLs and functional mobility at PLOF, no AD. She lives with her in a trailer, with a small tub/shower unit, built in corner seat Self Care: Independent Functional Cognition: Independent OT Current Status Subjective Pt in recliner, at bedside. When asked about her pain, pt reports "it's not bad", pt did not verbally rate pain. Mental Status/Objective Attachments: IV, Polar Pack Current Upper Extremity ROM WFL Upper Extremity Strength grossly 3+/5 ADL-Treatment Eating (QC): 6 (IND per pt and nursing report) Upper Body Dressing (QC): 5 (Per clincial judgment.) Lower Body Dressing (QC): 5 (Per clincial judgment, pt would be able to thread BLEs and perform pant hike.) On/Off Footwear (QC): 6 (IND donning/doffing gripper socks.) Toileting Hygiene (QC): 5 (Pt reports able to manage clothing and hygiene. Assistance with IV pole per pt report.) Other Treatments Pt in recliner, family member at bedside. Pt agreeable to OT tx. Pt demo'd ability to doff/don gripper socks independently. Pt reports she toileted earlier, was able to manage clothing up/down with someone present for safety/IV pole. Pt declined toileting at this time. Per clinical judgment, with LE dressing pt would be able to thread LEs into pants (per pt's ability to complete footwear), and she would be able to complete pant hike (per pt report with toileting). Pt and family member report no concerns with ADLs upon discharging, if pt were to need assistance then family could help her. Pt declines further OT services at this time. Post tx, pt in recliner, call light in reach and all needs met. Education OT Patient Education: Correct positioning, Modified ADL techniques, Progress toward Goal/Update tx plan, Purpose of tx/functional activities, Rehab process Teaching Recipient: Patient Teaching Methods: Discussion Response to Teaching: Verbalize Understanding OT Fdc Goals Cell Efficiency Supervisor Goals 1=Demonstrate adherence to instructed precautions during ADL tasks. 2=Patient will verbalize/demonstrate understanding of assistive devices/modifications for ADL. 3=Patient will improve strength/tolerance for activity to enable patient to perform ADL's. OT Education/Plan Problem List/Assessment Assessment: No Skilled OT Needs ID'd No skilled OT services indicated at this time. Pt is able to complete LE dressing, footwear, toileting and eating, and pt has no concerns with her ability to complete other ADLs at this time. Pt declines further OT services, d/c from OT. Discharge Recommendations Plan/Recommendations: Discharge/Goals Met Treatment Plan/Plan of Care Patient would benefit from OT for education, treatment and training to promote independence in ADL's, mobility, safety and/or upper extremity function for ADL's. Plan of Care: ADL Retraining Treatment Duration: May 06, 2022 Frequency: 1 time per week (eval only) Estimated Hrs Per Day: .25 hour per day Rehab Potential: Fair Time/GCodes Start Time: 09:35 Stop Time: 09:48 Total Time Billed (hr/min): 13 Billed Treatment Time 1, EVMARIA T DIALLO OT May 06, 2022 10:02
--- NOTE | 2022-05-06 10:13 | Physical Therapy Daily Note ---
PT Daily Note-Current Subjective Patient agrees to PT. Pain Numeric Pain Scale: 5-Moderate Pain Location: Right Location Body Site: Knee Pain Description: Acute Section J - Health Conditions 1. Rarely or not at all 2. Occasionally 3. Frequently 4. Almost constantly 8. Unable to answer Pain Effect on Sleep: 2 Pain Interference with Therapy: 2 Pain Interference w/Day-to-Day: 2 Mental Status Patient Orientation: Normal For Age Attachments: Polar Pack, IV Transfers SCALE: Activities may be completed with or without assistive devices. 9-Ezlmpgybaf-rpnajhy completes the activity by him/herself with no assistance from a helper. 5-Set-up or Clean-up Assistance-helper sets up or cleans up; patient completes activity. [place] assists only prior to or following the activity. 4-Supervision or Touching Assistance-helper provides verbal cues and/or touching/steadying and/or contact guard assistance as patient completes activity. Assistance may be provided throughout the activity or intermittently. 3-Partial/Moderate Assistance-helper does LESS THAN HALF the effort. [place] lifts, holds or supports trunk or limbs, but provides less than half the effort. 2-Substantial/Maximal Assistance-helper does MORE THAN HALF the effort. [place] lifts or holds trunk or limbs and provides more than half the effort. 5-Rhryyyegx-wjooln does ALL the effort. Patient does none of the effort to complete the activity. Or, the assistance of 2 or more helpers is required for the patient to complete the activity. If activity was not attempted, code reason: 7-Patient Refused. 9-Not Applicable-not attempted and the patient did not perform the activity before the current illness, exacerbation or injury. 10-Not Attempted due to Environmental Limitations-(lack of equipment, weather restraints, etc.). 88-Not Attempted due to Medical Conditions or Safety Concerns. Sit to Stand (QC): 4 Weight Bearing Right Lower Extremity: Right Weight Bearing/Tolerated Gait Training Distance: 200' Walk 10 feet (QC): 4 Walk 50 ft with 2 Turns(QC): 4 Walk 150 ft (QC): 4 Gait Assistive Device: FWW slow, steady reciprocal pattern Exercises Supine Ex: Ankle pumps, Quad Set, Heel Slides, Straight leg raise Supine Reps: 15 (in recliner) Seated Therapy Exercises: Long arc quads Seated Reps: 15 Assessment Patient progressing with treatment plan with right knee ROM 0-90 degrees in seated position. PT to increase activity and plan dismissal to home with son tomorrow. SW notified of patient's need for FWW. PT Wet Process [place] Goals Halfway Goals PT Wet Process [place] Goals Time Frame: May 12, 2022 Roll Left & Right (QC): 6 Sit to Lying (QC): 6 Lying-Sitting on Side/Bed(QC): 6 Sit to Stand (QC): 6 Chair/Dsl-nl-Buaal Xfer(QC): 6 Walk 10 feet (QC): 6 Walk 50ft with 2 Turns (QC): 6 Walk 150 ft (QC): 6 1 Step (curb) (QC): 4 4 Steps (QC): 4 PT Plan Treatment/Plan Treatment Plan: Continue Plan of Care Treatment Plan: Bed Mobility, Education, Functional Activity Kelly, Functional Strength, Gait, Safety, Therapeutic Exercise, Transfers Treatment Duration: May 12, 2022 Frequency: 11 times per week Estimated Hrs Per Day: .25 hour per day Patient and/or Family Agrees t: Yes Time/GCodes Time In: 905 Time Out: 928 Total Billed Treatment Time: 23 Total Billed Treatment 1 visit EX 13 min GT 10 min BRADLEY WEINSTEIN PT May 06, 2022 10:13
--- NOTE | 2022-05-06 10:48 | Anesthesia-General Post-Op ---
General Patient Condition Mental Status/LOC: Same as Preop Cardiovascular: Satisfactory Nausea/Vomiting: Absent Respiratory: Satisfactory Pain: Controlled Complications: Absent Post Op Complications Complications None Follow Up Care/Instructions Patient Instructions None needed. Anesthesia/Patient Condition Patient Condition Patient is doing well, no complaints, stable vital signs, no apparent adverse anesthesia problems. No complications reported per nursing. SHANKAR DUPREE CRNA May 06, 2022 10:48
[2022-05-06 11:32] VITALS: BP 125/76
--- NOTE | 2022-05-06 14:19 | Physical Therapy Daily Note ---
PT Daily Note-Current Subjective Patient appears very medicated. Exercises only due to not safe for OOB activity. Pain Numeric Pain Scale: 10-Worst Possible Pain Location: Right Location Body Site: Knee Pain Description: Acute Section J - Health Conditions 1. Rarely or not at all 2. Occasionally 3. Frequently 4. Almost constantly 8. Unable to answer Pain Effect on Sleep: 2 Pain Interference with Therapy: 2 Pain Interference w/Day-to-Day: 2 Mental Status Patient Orientation: Person, Time, Situation Transfers SCALE: Activities may be completed with or without assistive devices. 4-Qgsqzqzuzj-ibzbudi completes the activity by him/herself with no assistance from a helper. 5-Set-up or Clean-up Assistance-helper sets up or cleans up; patient completes activity. [place] assists only prior to or following the activity. 4-Supervision or Touching Assistance-helper provides verbal cues and/or touching/steadying and/or contact guard assistance as patient completes activity. Assistance may be provided throughout the activity or intermittently. 3-Partial/Moderate Assistance-helper does LESS THAN HALF the effort. [place] lifts, holds or supports trunk or limbs, but provides less than half the effort. 2-Substantial/Maximal Assistance-helper does MORE THAN HALF the effort. [place] lifts or holds trunk or limbs and provides more than half the effort. 0-Kbjbfezju-rhnzgd does ALL the effort. Patient does none of the effort to complete the activity. Or, the assistance of 2 or more helpers is required for the patient to complete the activity. If activity was not attempted, code reason: 7-Patient Refused. 9-Not Applicable-not attempted and the patient did not perform the activity before the current illness, exacerbation or injury. 10-Not Attempted due to Environmental Limitations-(lack of equipment, weather restraints, etc.). 88-Not Attempted due to Medical Conditions or Safety Concerns. Weight Bearing Right Lower Extremity: Right Weight Bearing/Tolerated Exercises Supine Ex: Ankle pumps, Quad Set, Heel Slides, Straight leg raise Supine Reps: 15 (AAROM due to pain) Assessment PT to increase activity as tolerated by patient. Patient c/o 10/10 right knee pain, however, is using [employer] and receiving pain pills as ordered per RN. Patient's ROM right knee is functional and will continue to improve with pain control. PT Licensing Coordinator Goals Licensing Coordinator Goals PT Intermediate Goals Time Frame: May 12, 2022 Roll Left & Right (QC): 6 Sit to Lying (QC): 6 Lying-Sitting on Side/Bed(QC): 6 Sit to Stand (QC): 6 Chair/Cee-cf-Oovgv Xfer(QC): 6 Walk 10 feet (QC): 6 Walk 50ft with 2 Turns (QC): 6 Walk 150 ft (QC): 6 1 Step (curb) (QC): 4 4 Steps (QC): 4 PT Plan Treatment/Plan Treatment Plan: Continue Plan of Care Treatment Plan: Bed Mobility, Education, Functional Activity Kelly, Functional Strength, Gait, Safety, Therapeutic Exercise, Transfers Treatment Duration: May 12, 2022 Frequency: 11 times per week Estimated Hrs Per Day: .25 hour per day Patient and/or Family Agrees t: Yes Time/GCodes Time In: 1320 Time Out: 1336 Total Billed Treatment Time: 16 Total Billed Treatment 1 visit EX 16 min BRADLEY WEINSTEIN PT May 06, 2022 14:19
[2022-05-06 15:56] VITALS: BP 127/73
[2022-05-06 19:42] VITALS: BP 189/83
[2022-05-07] VITALS: BP 131/67
--- NOTE | 2022-05-07 02:53 | DISCHARGE SUMMARY ---
DATE OF SERVICE: DIAGNOSES: 1. Right knee primary osteoarthritis. 2. Hypertension. 3. Hypercholesterolemia. PROCEDURE: Right total knee arthroplasty. SUMMARY: The patient is an 81-year-old female, who underwent a right total knee arthroplasty on the day of admission. Postoperatively, she did well. At the time of discharge, her wound was clean and dry. She had no calf tenderness. Negative Homans sign. CONDITION AT DISCHARGE: Good. DISCHARGE DIET: Regular. FOLLOWUP: Followup is in three weeks. Home physical therapy will be arranged. ACTIVITIES: Weightbearing as tolerated with a walker. DISCHARGE MEDICATIONS: Aspirin per day for 30 days and Percocet as needed for pain and home medications. Job ID: [id number] DocumentID: [id number] Dictated Date: 05/06/2022 08:04:09 Proj Mgr Date: 05/07/2022 02:52:42 Dictated By: CRESCENCIO FELDMAN MD
[2022-05-07 04:00] VITALS: BP 188/91
[2022-05-07] MEDS: oxyCODONE/APAP 5/325MG (PERCOCET 5) TABLET PO PRN ×2 (04:13→08:46)
[2022-05-07 05:25] LABS: HEMOGLOBIN 11.5 g/dL (11.5-16.0)
--- NOTE | 2022-05-07 07:09 | Progress Note ---
Standard Progress Note Progress Notes/Assess & Plan Date Seen by a Provider: May 07, 2022 Time Seen by a Provider: 06:59 Progress/Assessment & Plan post op check no complaints radiographs--HW well positioned without fracture RLE--2 plus DP pulse with brisk cap refill intact DF and PF of toes and ankle with intact sensation throughout s/p RTKA mobilize as able Final Diagnosis feeling better today Vital Signs Date Time Temp Pulse Resp B/P (MAP) Pulse Ox O2 Delivery O2 Flow Rate FiO2 05/07/22 04:00 36.7 100 22 188/91 (123) 96 Room Air 05/07/22 00:00 36.7 89 20 131/67 (88) 94 Room Air 05/06/22 21:00 18 05/06/22 20:00 Room Air 05/06/22 19:42 36.5 93 18 189/83 (118) 95 Room Air 05/06/22 15:56 36.4 80 18 127/73 (91) 92 Room Air 05/06/22 11:32 36.6 75 18 125/76 (92) 96 Room Air 05/06/22 08:00 96 Room Air 05/06/22 07:45 36.6 73 18 133/80 (97) 96 Room Air I & O 05/07/22 07:00 Intake Total 4480 ml Output Total 700 ml Balance 3780 ml Laboratory Tests Test 05/07/22 05:18 Range/Units Hemoglobin 11.5 11.5-16.0 g/dL Hematocrit 35 35-52 % RLE--incision clean and dry. no calf tenderness neg Cari's s/p RTKA PT this am and if doing well can DC CRESCENCIO FELDMNA MD May 07, 2022 07:09
[2022-05-07] MEDS ORDERED: morphine INJ 4 MG/ML 1 ML (VIAL/SYRINGE) IVP PRN (07:15)
[2022-05-07 08:11] VITALS: BP 159/76
[2022-05-07] MEDS: ASPIRIN E.C. 81 MG (ECOTRIN) TAB PO SCH (08:45)
[2022-05-07] MEDS: FLUoxetine HCL 20 MG (PROzac) CAP PO SCH (08:45)
[2022-05-07] MEDS: lisINopril 10 MG (PRINIVIL) TABLET PO SCH (08:45)
[2022-05-07] MEDS: SENNA W/DOCUSATE (SENOKOT S) TABLET PO SCH (08:46)
--- NOTE | 2022-05-07 08:46 | Physical Therapy Daily Note ---
PT Daily Note-Current Subjective Patient sitting EOB pre tx, agrees to PT, voices no complaints of pain. states patient has not done stairs yet, they have 4-5 steps to enter their home. Pain Section J - Health Conditions 1. Rarely or not at all 2. Occasionally 3. Frequently 4. Almost constantly 8. Unable to answer Pain Effect on Sleep: 2 Pain Interference with Therapy: 2 Pain Interference w/Day-to-Day: 2 Appearance Patient in recliner post tx with nurse call, phone, tray, all needs met. Mental Status Patient Orientation: Person, Place, Situation Transfers SCALE: Activities may be completed with or without assistive devices. 0-Wckpbcpvrb-zxfqtjz completes the activity by him/herself with no assistance from a helper. 5-Set-up or Clean-up Assistance-helper sets up or cleans up; patient completes activity. [place] assists only prior to or following the activity. 4-Supervision or Touching Assistance-helper provides verbal cues and/or touching/steadying and/or contact guard assistance as patient completes activity. Assistance may be provided throughout the activity or intermittently. 3-Partial/Moderate Assistance-helper does LESS THAN HALF the effort. [place] lifts, holds or supports trunk or limbs, but provides less than half the effort. 2-Substantial/Maximal Assistance-helper does MORE THAN HALF the effort. [place] lifts or holds trunk or limbs and provides more than half the effort. 6-Wtvspyzfw-aawoth does ALL the effort. Patient does none of the effort to complete the activity. Or, the assistance of 2 or more helpers is required for the patient to complete the activity. If activity was not attempted, code reason: 7-Patient Refused. 9-Not Applicable-not attempted and the patient did not perform the activity before the current illness, exacerbation or injury. 10-Not Attempted due to Environmental Limitations-(lack of equipment, weather restraints, etc.). 88-Not Attempted due to Medical Conditions or Safety Concerns. Sit to Stand (QC): 4 Chair/Mhw-co-Huaoj Xfer(QC): 4 Patient was a little shaky after standing, no LOB, resolved after a few moments. SBA Weight Bearing Right Lower Extremity: Right Weight Bearing/Tolerated Gait Training Distance: 150' Walk 10 feet (QC): 4 Walk 50 ft with 2 Turns(QC): 4 Walk 150 ft (QC): 4 Gait Persons Needed: 1 Gait Assistive Device: FWW SBA, very slow ambulation, antalgic Stair Training Stair Training: Handrails/: 2 handrails #of Steps: 5 1 Step (curb) (QC): 4 4 Steps (QC): 4 Stairs: Pattern: Step to CGA, cues for foot placement Treatments transfers, ambulation, stair training Assessment Current Status: Fair Progress good progress with stairs, just needs cues for foot placement PT Intermediate Goals Intermediate Goals PT Urgent Care Nurse Practitioner Goals Time Frame: May 12, 2022 Roll Left & Right (QC): 6 Sit to Lying (QC): 6 Lying-Sitting on Side/Bed(QC): 6 Sit to Stand (QC): 6 Chair/Zzu-jo-Vphkw Xfer(QC): 6 Walk 10 feet (QC): 6 Walk 50ft with 2 Turns (QC): 6 Walk 150 ft (QC): 6 1 Step (curb) (QC): 4 4 Steps (QC): 4 PT Plan Problem List Problem List: Activity Tolerance, Functional Strength, Safety, Balance, Gait, Transfer, Bed Mobility, ROM Treatment/Plan Treatment Plan: Continue Plan of Care Treatment Plan: Bed Mobility, Education, Functional Activity Kelly, Functional Strength, Gait, Safety, Therapeutic Exercise, Transfers Treatment Duration: May 12, 2022 Frequency: 11 times per week Estimated Hrs Per Day: .25 hour per day Patient and/or Family Agrees t: Yes Safety Risks/Education Patient Education: Gait Training, Transfer Techniques, Steps, Correct Positioning, Safety Issues Teaching Recipient: Patient Teaching Methods: Demonstration, Discussion Response to Teaching: Reinforcement Needed Time/GCodes Time In: 821 Time Out: 832 Total Billed Treatment Time: 11 Total Billed Treatment 1 visit FA 11MAICOL PERSON PT May 07, 2022 08:46
[2022-05-07] MEDS: ENOXAPARIN INJECTION 30 MG/0.3 ML SYR SC SCH (08:51)
[2022-05-07 12:11] VITALS: BP 102/65
[2022-05-07 12:47] VITALS: BP 102/65
== END 2022-05-07 12:35 | disposition home health service (06) | DRG 470 ==
LOC: 4TH 07:46 → SURG 07:47 → 4TH 11:33
PROVIDERS: ADMIT Orthopaedic Surgery; ATTEND Orthopaedic Surgery
PROC: 0SRC0J9 Replacement of Right Knee Joint with Synthetic Substitute, Cemented, Open Approach (ICD-10-PCS; principal; 2022-05-05 09:05)
DX: M17.11 Unilateral primary osteoarthritis, right knee (principal); E78.00 Pure hypercholesterolemia, unspecified; I10 Essential (primary) hypertension; Z88.2 Allergy status to sulfonamides; F17.210 Nicotine dependence, cigarettes, uncomplicated; K21.9 Gastro-esophageal reflux disease without esophagitis; K57.90 Diverticulosis of intestine, part unspecified, without perforation or abscess without bleeding; G89.29 Other chronic pain; M54.9 Dorsalgia, unspecified; F32.A Depression, unspecified; Z85.3 Personal history of malignant neoplasm of breast; Z85.828 Personal history of other malignant neoplasm of skin
CPT/HCPCS: 36415; 73560; 85014; 85018; 86850; 86900; 86901

== ENCOUNTER 2023-04-04 14:13 | Emergency (ER) | payer MEDICARE ==
[~2023-04-04] VITALS: Ht 154.9 cm; Wt 54.4 kg
[~2023-04-04 14:13] MED LIST changes: +FLUO20CA48 PO; +LISI10TA25 PO; +ONDA-105 PO; -ONDANSETRON 4 MG/2 ML (SDV) Z0FRAN IVP PRN; -diphenhydrAMINE 50 MG/ML INJ (BENADRYL) IVP PRN; -morphine PCA 100 MG/100 ML BAG IV PRN
--- NOTE | 2023-04-04 15:23 | ED Cough/URI ---
General Chief Complaint: Cough/Cold/Flu Symptoms Stated Complaint: PNEMONIA Nursing Triage Note: PT AMB TO [facility] 1 WITH CC OF COUGH SINCE LAST NIGHT. PT STATES THAT SHE IS COUGHING UP CLEAR SPUTUM. TYLENOL AND COUGH SYRUP WERE TAKEN THIS AM. Source: patient Exam Limitations: no limitations History of Present Illness Date Seen by Provider: Apr 04, 2023 Time Seen by Provider: 15:23 Initial Comments Here with cough and runny nose that she states has been going on for 1 to 3 days. Reports coughing clear sputum. She has been taking Tylenol and cough syrup and is not better. She is concerned because she has had this kind of cough before and it was pneumonia. Denies nausea, vomiting, diarrhea or fever. Reports taking her meds as directed but does not take very many medicines. Timing/Duration: yesterday, getting worse Severity/Quality: dry cough Prior Episodes/Possible Cause: occasional episodes Associated Symptoms: cough, fever/chills, muscle aches, nasal congestion, nasal drainage, shortness of breath Allergies and Home Medications Allergies Coded Allergies: Sulfa (Sulfonamide Antibiotics) (Verified Allergy, Unknown, 06/08/16) Patient Home Medication List Home Medication List Reviewed: Yes Atorvastatin Calcium (Atorvastatin Calcium) 40 Mg Tablet, 40 MG PO DAILY, (Reported) Entered as Reported by: CHARLENE KNOWLES on 04/27/22 1307 Fluoxetine HCl (Fluoxetine HCl) 20 Mg Capsule, 20 MG PO DAILY, (Reported) Entered as Reported by: CARRIE SANDOVAL on 05/05/22 1525 Lisinopril (Lisinopril) 10 Mg Tablet, 10 MG PO DAILY, (Reported) Entered as Reported by: CARRIE SANDOVAL on 05/05/22 1525 Ondansetron HCl (Ondansetron HCl) 4 Mg Tablet, 4 MG PO Q8H PRN for NAUSEA/VOMITING-1ST LINE, (Reported) Entered as Reported by: CARRIE SANDOVAL on 05/05/22 1525 Review of Systems Review of Systems Constitutional: see HPI; No chills, No fever EENTM: nose congestion Respiratory: cough; No short of breath Cardiovascular: No chest pain Gastrointestinal: No nausea, No vomiting Genitourinary: no symptoms reported Musculoskeletal: No back pain Skin: no symptoms reported Psychiatric/Neurological: Denies Headache Past Tfjzptg-Eptdvr-Amqnah Hx Patient Social History Tobacco Use?: No Substance use?: No Alcohol Use?: No Immunizations Up To Date First/Initial COVID19 Vaccinat: 2020 Second COVID19 Vaccination Az: 2020 Third COVID19 Vaccination Date: 2020 Seasonal Allergies Seasonal Allergies: Yes (MILD) Past Medical History Surgery/Hospitalization HX: 2 KNEE REPLACEMENTS, HTN, HX OF BREAST CANCER Surgeries: Yes (breast lumpectomy x2, right CTR, LEFT AND RIGHT CATARACT) Hysterectomy, Orthopedic Respiratory: No Currently Using CPAP: No Currently Using BIPAP: No Cardiac: Yes High Cholesterol, Hypertension Neurological: No Reproductive Disorders: No Sexually Transmitted Disease: No HIV/AIDS: No Genitourinary: Yes UTI-Chronic Gastrointestinal: Yes Gastroesophageal Reflux, Diverticulosis Musculoskeletal: Yes (RIGHT KNEE PAIN) Arthritis, Chronic Back Pain Endocrine: No HEENT: Yes (GLASSES) Cataract Loss of Vision: Bilateral Hearing Impairment: Denies Cancer: Yes Skin, Breast Did You Recieve Any Treatments: Yes What Type of Treatment Did You: Surgical Intervention Psychosocial: Yes Depression Integumentary: No Blood Disorders: No Adverse Reaction/Blood Tranf: No (N/A) Family Medical History Reviewed Nursing Family Hx Cardiovascular disease G8 BROTHER Colon cancer G8 SISTER FH: breast cancer 19 MOTHER Hypertension G8 BROTHER Heart Disease, Cancer, Diabetes, Hypertension Physical Exam Vital Signs - First Documented 04/04/23 14:34 Temp 37.3 Pulse 98 B/P (MAP) 139/92 (108) Pulse Ox 94 O2 Delivery Room Air Capillary Refill : Height: 5'0.00" Weight: 122lbs. 9.0oz. 55.184423ck; 22.00 BMI Method:Stated General Appearance: WD/WN, no apparent distress HEENT: PERRL/EOMI, pharynx normal Neck: full range of motion, supple Respiratory: lungs clear, normal breath sounds Cardiovascular: no murmur, tachycardia Gastrointestinal: non tender, soft Extremities: non-tender, normal inspection Neurologic/Psychiatric: alert, oriented x 3 Skin: normal color, warm/dry Progress/Results/Core Measures Suspected Sepsis SIRS Temperature: Pulse: 98 Respiratory Rate: Laboratory Tests 04/04/23 04:45: White Blood Count 11.8H Blood Pressure 139 /92 Mean: 108 Laboratory Tests 04/04/23 04:45: Creatinine 0.81, Platelet Count 288, Total Bilirubin 0.9 Results/Orders Lab Results Laboratory Tests Test 04/04/23 04:45 04/04/23 14:44 Range/Units White Blood Count 11.8 H 4.3-11.0 10^3/uL Red Blood Count 4.47 3.80-5.11 10^6/uL Hemoglobin 14.7 11.5-16.0 g/dL Hematocrit 43 35-52 % Mean Corpuscular Volume 97 80-99 fL Mean Corpuscular Hemoglobin 33 25-34 pg Mean Corpuscular Hemoglobin Concent 34 32-36 g/dL Red Cell Distribution Width 12.5 10.0-14.5 % Platelet Count 288 130-400 10^3/uL Mean Platelet Volume 9.7 9.0-12.2 fL Immature Granulocyte % (Auto) 0 % Neutrophils (%) (Auto) 86 H 42-75 % Lymphocytes (%) (Auto) 6 L 12-44 % Monocytes (%) (Auto) 8 0-12 % Eosinophils (%) (Auto) 0 0-10 % Basophils (%) (Auto) 0 0-10 % Neutrophils # (Auto) 10.0 H 1.8-7.8 10^3/uL Lymphocytes # (Auto) 0.7 L 1.0-4.0 10^3/uL Monocytes # (Auto) 0.9 0.0-1.0 10^3/uL Eosinophils # (Auto) 0.0 0.0-0.3 10^3/uL Basophils # (Auto) 0.0 0.0-0.1 10^3/uL Immature Granulocyte # (Auto) 0.1 0.0-0.1 10^3/uL Neutrophils % (Manual) 88 % Lymphocytes % (Manual) 6 % Monocytes % (Manual) 6 % Band Neutrophils % Sodium Level 136 135-145 MMOL/L Potassium Level 3.6 3.6-5.0 MMOL/L Chloride Level 98 98-107 MMOL/L Carbon Dioxide Level 24 21-32 MMOL/L Anion Gap 14 5-14 MMOL/L Blood Urea Nitrogen 10 7-18 MG/DL Creatinine 0.81 0.60-1.30 MG/DL Estimat Glomerular Filtration Rate 72 BUN/Creatinine Ratio 12 Glucose Level 107 H 70-105 MG/DL Calcium Level 9.3 8.5-10.1 MG/DL Corrected Calcium 9.1 8.5-10.1 MG/DL Total Bilirubin 0.9 0.1-1.0 MG/DL Aspartate Amino Transf (AST/SGOT) 22 5-34 U/L Alanine Aminotransferase (ALT/SGPT) 12 0-55 U/L Alkaline Phosphatase 68 40-136 U/L C-Reactive Protein High Sensitivity 2.74 H 0.00-0.50 MG/DL Total Protein 7.5 6.4-8.2 GM/DL Albumin 4.2 3.2-4.5 GM/DL Influenza Type A (RT-PCR) Not Detected Not Detecte Influenza Type B (RT-PCR) Not Detected Not Detecte SARS-CoV-2 RNA (RT-PCR) Detected H Not Detecte My Orders Orders - LUPILLO ALMEIDA MD Influenza A And B By Pcr (04/04/23 15:21) Covid 19 Inhouse Test (04/04/23 15:21) Cbc With Automated Diff (04/04/23 15:28) Comprehensive Metabolic Panel (04/04/23 15:28) Hs C Reactive Protein (04/04/23 15:28) Ed Iv/Invasive Line Start (04/04/23 15:28) Ns Iv 500 Ml (Ns Iv 500 Ml) (04/04/23 15:30) Ondansetron Injection (Ondansetron Inj (04/04/23 15:30) Manual Differential (04/04/23 04:45) Chest 1 View, Ap/Pa Only (04/04/23 16:10) Medications Given in ED Current Medications Medications Dose Ordered Sig/Murtaza Route Start Time Stop Time Status Last Admin Dose Admin Ondansetron HCl 4 mg ONCE ONCE IVP 04/04/23 15:30 04/04/23 15:31 DC 04/04/23 15:38 4 MG Sodium Chloride 500 ml @ 0 mls/hr Q0M ONCE IV 04/04/23 15:30 04/04/23 15:31 DC 04/04/23 15:38 0 MLS/HR Vital Signs/I&O 04/04/23 14:34 Temp 37.3 Pulse 98 B/P (MAP) 139/92 (108) Pulse Ox 94 O2 Delivery Room Air Capillary Refill : Blood Pressure Mean: 108 Progress Note : Progress Note Seen and evaluated. We will go ahead and get chest x-ray due to her concerns for pneumonia and I will check basic labs including CBC, CMP and CRP. Normal saline 500 mL bolus and Zofran 4 mg IV ordered. We will check COVID and influenza. Monitor patient. Differential diagnosis includes pneumonia, COVID-19 infection, dehydration, electrolyte abnormality 1700: Patient is COVID 19 positive. CBC shows slightly elevated white count but otherwise normal. CMP is grossly normal. CRP is slightly elevated at 2. Chest x-ray reviewed by me shows bibasilar thickening which may be pneumonitis versus pneumonia. Initiate outpatient treatment with molnupiravir due to medication reactions and also initiate azithromycin. Discharged home with return pre cautions. Patient verbalized understanding instructions and agreement with plan. Diagnostic Imaging Diagonstic Imaging: Xray Plain Films/CT/US/NM/MRI: chest Comments [facility] [place], [place] NAME: [facility]ICOLASA [facility] REC#: [id number] PT STATUS: REG ER : 1940 PHYSICIAN: LUPILLO ALMEIDA MD ADMIT DATE: 04/04/23/ER Signed Date of Exam:04/04/23 CHEST 1 VIEW, AP/PA ONLY INDICATION: Cough. COVID positive. COMPARISON: 04/27/2022. FINDINGS: There is enlargement of the cardiac silhouette. There are chronic pulmonary interstitial changes present within the lungs. These appear of increased prominence particularly within the right lung base when compared to the prior exam that may reflect some mild fluid-related interstitial edema or interstitial pneumonia. There is no large effusion. There is no pneumothorax. IMPRESSION: While there are chronic pulmonary interstitial changes, the prominence of the basilar markings, particularly on the right, have increased which may reflect superimposed interstitial pneumonia or edema. Dictated by: Dictated on workstation # [id number] Dict: 04/04/23 1633 Trans: 04/04/23 1650 [facility] [id number] Interpreted by: ANUEL MARSH MD Electronically signed by: ANUEL MARSH MD 04/04/23 1650 Departure Impression Primary Impression: Pneumonia due to COVID-19 virus Disposition: 01 HOME, SELF-CARE Condition: Stable Departure-Patient Inst. Decision time for Depature: 17:06 Referrals: GREER CASTRO MD (PCP/Family) Primary Care Physician Patient Instructions: Molnupiravir FDA Fact Sheet, COVID-19 ED, Pneumonia, Adult (DC) Add. Discharge Instructions: All discharge instructions reviewed with patient and/or family. Voiced understanding. Take medications as directed. Continue home medications as previously prescri bed. Drink plenty of fluids and get plenty of rest. Follow-up with your doctor in a few days for recheck. You have COVID-19 and you will need to stay out of public for 5 days and fever free for 24 hours. For the next 5 days after that, you should wear a mask while in public. Return for worse pain, fever, vomiting, weakness, breathing problems or other concerns as needed. You may take ibuprofen 400 mg every 8 hours as needed for fever or fever or pain. You may also take Tylenol/acetaminophen 1000 mg every 8 hours as needed fever or pain. Copy Copies To 1: GREER CASTRO MD, TIMOTHY D MD Apr 04, 2023 15:23
[2023-04-04] MEDS ORDERED: ONDANSETRON INJECTION 4 MG/2 ML (SDV) IVP ONE (15:30)
[2023-04-04] MEDS ORDERED: NS IV 500 ML 500 ML IV ONE (15:30)
[2023-04-04 15:36] LABS: BASOPHILS % (AUTO) 0 % (0-10); EOSINOPHILS % (AUTO) 0 % (0-10); HEMATOCRIT 43 % (35-52); HEMOGLOBIN 14.7 g/dL (11.5-16.0); LYMPHOCYTES # (AUTO) 0.7 10^3/uL (1.0-4.0); LYMPHOCYTES % (AUTO) 6 % (12-44); MEAN CORPUSCULAR HEMOGLOBIN 33 pg (25-34); MEAN CORPUSCULAR HGB CONC 34 g/dL (32-36); MEAN CORPUSCULAR VOLUME 97 fL (80-99); MEAN PLATELET VOLUME 9.7 fL (9.0-12.2); MONOCYTES # (AUTO) 0.9 10^3/uL (0.0-1.0); MONOCYTES % (AUTO) 8 % (0-12); NEUTROPHILS % (AUTO) 86 % (42-75); PLATELET COUNT 288 10^3/uL (130-400); WHITE BLOOD COUNT 11.8 10^3/uL (4.3-11.0)
[2023-04-04 15:49] LABS: ALBUMIN 4.2 GM/DL (3.2-4.5); BILIRUBIN,TOTAL 0.9 MG/DL (0.1-1.0); CALCIUM 9.3 MG/DL (8.5-10.1); CREATININE SERUM 0.81 MG/DL (0.60-1.30); POTASSIUM 3.6 MMOL/L (3.6-5.0); TOTAL PROTEIN 7.5 GM/DL (6.4-8.2)
[2023-04-04 16:09] LABS: LYMPHOCYTES % (MANUAL) 6 %; MONOCYTES % (MANUAL) 6 %; NEUTROPHILS % (MANUAL) 88 %
--- NOTE | 2023-04-04 16:48 | Diagnostic Imaging Report ---
INDICATION: Cough. COVID positive. COMPARISON: 04/27/2022. FINDINGS: There is enlargement of the cardiac silhouette. There are chronic pulmonary interstitial changes present within the lungs. These appear of increased prominence particularly within the right lung base when compared to the prior exam that may reflect some mild fluid-related interstitial edema or interstitial pneumonia. There is no large effusion. There is no pneumothorax. IMPRESSION: While there are chronic pulmonary interstitial changes, the prominence of the basilar markings, particularly on the right, have increased which may reflect superimposed interstitial pneumonia or edema. Dictated by: Dictated on workstation # [id number]
[2023-04-04 17:34] VITALS: BP 112/80
[2023-04-04] MEDS ORDERED: AZIT250T12 PO (17:52)
[2023-04-04] MEDS ORDERED: MOLN200C PO (17:52)
== END 2023-04-04 17:34 | disposition home or self-care (01) ==
LOC: EDUNIT# 14:13 → ER 14:20
DX: U07.1 COVID-19 (principal); J12.82 Pneumonia due to coronavirus disease 2019; R05.9 Cough, unspecified; R09.89 Other specified symptoms and signs involving the circulatory and respiratory systems
CPT/HCPCS: 36415; 71045; 80053; 85007; 85027; 86141; 87636